=== PATIENT | female | born 2000 | race Caucasian/White ===

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

== ENCOUNTER → 2019-02-24 | Outpatient (CLI) | payer OTHER, MEDICAID, SELFPAY ==
[2019-02-24 09:40] VITALS: BMI 33.7
== END | disposition home or self-care (01) ==
LOC: LABSPEC 14:38
PROVIDERS: Family Provider Pediatrics; PCP Pediatrics; Referring Provider Obstetrics & Gynecology; Visit Provider Obstetrics & Gynecology
DX: Z34.93 Encounter for supervision of normal pregnancy, unspecified, third trimester (principal)
CPT/HCPCS: 87081

== ENCOUNTER → 2019-02-25 | Outpatient (CLI) | payer OTHER, MEDICAID, SELFPAY ==
[2019-02-25 14:48] VITALS: BMI 33.7
[2019-02-25 15:16] LABS: ROM Internal Control Test YES-OK TO RESULT pt. (Internal QC); ROM Patient Test Negative (Negative)
== END | disposition home or self-care (01) ==
LOC: LABSPEC 14:52
PROVIDERS: Family Provider Pediatrics; PCP Pediatrics; Visit Provider Nurse Practitioner Women's Health
DX: N89.8 Other specified noninflammatory disorders of vagina (principal)
CPT/HCPCS: 84112

== ENCOUNTER 2019-03-13 11:00 | Outpatient (CLI) | payer OTHER, MEDICAID, SELFPAY ==
[2019-03-12 13:48] VITALS: BMI 33.7
[2019-03-13 11:25] VITALS: BMI 32.8
--- NOTE | 2019-03-18 02:55 | OB.TRI.PN ---
Progress Notes Date of Service: 03/13/19 Progress Note: fht 130 moderate variability reactive no decelerations category I tracing [place]: regular no cervilca change s/p false labor reactive nst dc home labor precautions
== END 2019-03-13 13:40 | disposition home or self-care (01) ==
LOC: WPOUT 11:22 → WP 11:23
PROVIDERS: Referring Provider Obstetrics & Gynecology; Visit Provider Obstetrics & Gynecology
DX: O47.9 False labor, unspecified (principal); Z3A.00 Weeks of gestation of pregnancy not specified
CPT/HCPCS: 59025; 59050; 99218; G0378

== ENCOUNTER 2019-03-17 02:20 | Outpatient (CLI) | payer OTHER, MEDICAID, SELFPAY ==
[2019-03-17 03:18] VITALS: BMI 33.5
[2019-03-17] MEDS: Acetaminophen 500 MG Tablet 1000 MG PO (03:34)
--- NOTE | 2019-03-17 07:06 | OB.TRI.PN ---
Progress Notes Date of Service: 03/17/19 Progress Note: false labor no significant cervical change fht 130 moderate variability reactive no decelerations category I tracing [place]: regular a/p false labor reactive nst dc home labor preacutions
== END 2019-03-17 06:40 | disposition home or self-care (01) ==
LOC: WPOUT 03:08 → WP 03-18 07:18
PROVIDERS: Visit Provider Obstetrics & Gynecology
DX: O47.9 False labor, unspecified (principal); Z3A.00 Weeks of gestation of pregnancy not specified
CPT/HCPCS: 59025; 59050; 99218; G0378

== ENCOUNTER 2019-03-25 20:18 | Inpatient (IN) | payer OTHER, MEDICAID, SELFPAY ==
[2019-03-12 13:48] VITALS: BMI 33.7
[2019-03-23 14:07] VITALS: BMI 33.5
[2019-03-25 19:01] LABS: ROM Internal Control Test YES-OK TO RESULT pt. (Internal QC); ROM Patient Test Negative (Negative)
[2019-03-25 19:09] VITALS: BMI 33.5
--- NOTE | 2019-03-25 19:16 | OB.TRI.PN ---
Progress Notes Date of Service: 03/25/19 Progress Note: patient presents complaining of questionable loss of fluid earlier today. She has not had anything since. Patient with good movement and irregular contractions. She denies any significant vaginal bleeding and admits no complications in the heart tones 130 moderate variability reactive 120-second long variable 10 seconds below the baseline overall reassuring grossly normal RAFITA and gross and fine movements seen on ultrasound at bedside. [place]: Irregular Assessment and plan 18-year-old false labor reactive NST reassuring fluid and movement seen on ultrasound. DC home labor precautions negative ROM plus Laboratory Studies: Laboratory Tests 03/25/19 Range/Units 18:25 Vag Amniotic Fld Detect Negative (Negative)
[2019-03-25 21:18] LABS: Absolute Lymphocyte Count 2.63 X10^3/ul (0.83-4.51); Absolute Neutrophil Count 11.1 X10^3/uL (2.0-7.7); Basophil# 0.03 X10^3/uL; Basophil% 0.2 % (0-1); Eosinophil# 0.16 X10^3/uL; Hematocrit 34.2 % (37-47); Hemoglobin 10.9 g/dl (12.0-15.0); Lymphocyte # 2.63 X10^3/ul (4.0); Lymphocyte % 17.2 % (19-41); Mean Corp Hgb Conc 31.9 g/gl (32-36); Mean Corpuscular Hgb 25.7 pg (27.0-32.0); Mean Corpuscular Volume 80.7 fL (81-99); Mean Platelet Vol. 8.8 fl (6.2-12.0); Monocyte# 1.29 X10^3/uL; Monocyte% 8.5 % (0-10); Neutrophil % 72.8 % (47-70); Platelet Count 417 K/mm3 (150-450); RBC Distribution Width CV 14.1 % (11.6-14.6); RBC Distribution Width SD 41.6 fl (35.1-43.9); Red Blood Count 4.24 M/mm3 (4.2-5.4); White Blood Count 15.3 K/mm3 (4.4-11.0)
[2019-03-25 21:19] LABS: POSITIVE COUNT NO; POSITIVE DIFFERENTIAL NO; POSITIVE MORPHOLOGY NO
[2019-03-25] MEDS: Lactated Ringers 1,000 ML 50 ML IV ×2 (21:40→22:45)
[2019-03-25] MEDS: Oxytocin 30 units/NS 500 ml 30 UNITS/500 ML IV.SOLN IV (22:04)
[2019-03-25] MEDS: fentaNYL-bupivacaine (epidural) 100 ML BAG EPIDURAL (23:24)
[2019-03-26] MEDS: Ondansetron 4 MG/2 ML Vial IV ×2 (02:22→09:41)
[2019-03-26] MEDS: Lactated Ringers 1,000 ML 50 ML IV ×2 (02:42→06:09)
[2019-03-26] MEDS: fentaNYL-bupivacaine (epidural) 100 ML BAG EPIDURAL (03:55)
--- NOTE | 2019-03-26 08:13 | PCM.HP.OB ---
- Problem List (1) tachycardia Status: Acute (2) Status: Acute Qualifiers: Comment: genetic, carrier, and ntd screening declined. anatomy us normal (3) Supervision of normal first Status: Acute Qualifiers: Comment: PRR SHANIQUA 03/23/19 girl Luisa Luis History Date of Admission: 03/26/19 Final SHANIQUA: 03/23/19 Gestational age: 40 Weeks and 3 Days History of this : This is a 18 year-old, at 40 weeks gestational age presents for possible labor and was found to have tachycardia and two variable decelerations so she is being induced for postdates and variables. she admits good fm. Allergies tree and shrub pollen Allergy (Mild, Verified 03/25/19 19:24) Other sneezing Home Medications: Home Medications vitamin#30 30 mg iron-10 mg iron-folic acid 1 mg-omg3 capsule 1 cap PO DAILY cap 08/15/18 Fexofenadine HCl [Letitia Allergy] 180 mg PO DAILY 11/16/18 Smoking Status: Never smoker Alcohol: None Number of Fetus(es): 1 Heart Tracin-170 moderate variability reactive no decelerations category II tracing [place]: regular q 2-5 History Past Pregnancies: Past Pregnancies Delivery Date Name GA/Weeks Outcome Route Weight Gender Labor Length Anesthesia Delivery Location Provider FOB Labs: Mom's Labs & Results 03/25/19 03/25/19 03/25/19 18:25 21:00 21:00 WBC 15.3 H RBC 4.24 Hgb 10.9 L Hct 34.2 L MCV 80.7 L MCH 25.7 L MCHC 31.9 L RDW 14.1 RDW Differential 41.6 Plt Count 417 MPV 8.8 Immature Gran % (Auto) 0.300 Neut % (Auto) 72.8 H Lymph % (Auto) 17.2 L [place] % (Auto) 8.5 Eos % (Auto) 1.0 Baso % (Auto) 0.2 Absolute Neuts (auto) 11.1 H Absolute Lymphs (auto) 2.63 Total Counted Not Reportable Vag Amniotic Fld Detect Negative Blood Type O POSITIVE Antibody Screen NEGATIVE Course Did the patient receive Yes care? Labs Blood Type: O RH: POSITIVE RPR/VDRL/Syphilis Nonreactive Rubella status Immune HbSAg Negative Date Done: 09/15/18 Chlamydia Negative Gonorrhea Negative HIV/AIDS Non-Reactive Group B Strep: Negative Current Obstetrical History Gestational Diabetes No Incompetent Cervix No Infertility No IUGR No Macrosomia No Hypertension/Pre-eclampsia No Placenta Previa/Abruption No PTL/PROM No Uterine anomaly No Oligohydramnios No Polyhydramnios No Multiple gestation No Past Medical History Asthma No Diabetes No Hypertension No Heart disease No Mitral valve prolapse No: murmur when she was born Neurologic/Seizure disorder/ No Migraines Kidney disease No Liver disease No Varicosities No Clotting disorders/Hx of DVT No Thyroid Dysfunction No Other medical diseases No Psychiatric disorders No Major trauma No Abnormal PAP smear No Sleep apnea No Mammogram in the last 2 years No Social History Marital Status: Alleged father [place] Hx Smoking No Smoking Status Never smoker How long have you used n/a substances (years)? What date/time did you last n/a use any of the above? Have you had any previous n/a inpatient or outpatient treatment Expected Infant Delivery Method: Spontaneous Vaginal Review of Systems Constitutional: Denies: Fever, Malaise Eyes: Denies: Blurred vision, Vision Change HEENT: Denies: Head Aches, Visual Changes Cardiovascular: Denies: Chest Pain, Palpitations Respiratory: Denies: Cough, Shortness of Breath, Wheezing Gastrointestinal: Denies: Abdominal Pain, Diarrhea, Nausea, Vomiting Genitourinary: Denies: Dysuria, Hematuria Musculoskeletal: Denies: Joint Pain, Muscle pain Skin: Denies: Lesions, Rash Neurological: Denies: Blurred vision, Focal weakness, Headaches Psychiatric: Denies: Anxiety, Depression Endocrine: Denies: Heat/ Cold Intolerance Hematologic/ Lymphatic: Denies: Easy Bruising, Easy Bleeding Physical Exam General: Alert, Cooperative, No apparent distress HEENT: Atraumatic, Normocephalic. Negative for: Thyromegaly, Lymphadenopathy Cardiovascular: Regular rate Lungs: Normal air movement Abdomen: Soft, Non Tender, Gravid Neurological: Deep Tendon Reflexes 2+/4 and Symmetrical, Neuro grossly intact. Negative for: Clonus TAX COLLECTION COORDINATOR: Normal external genitalia. Negative for: Vulvar lesions Estimated gestational size: Appropriate for gestational size Presentation: Cephalic Cervix Dilation (cm): 4 Station: -1 Effacement (%): 80 Assessment/Plan All Active Problems (Last Reviewed 03/23/19 @ 13:47 by Fany Morris) tachycardia (Acute) (Acute) Supervision of normal first (Acute) Chest pain (Resolved) Threatened labor (Resolved) This is a 18 year-old, , at 40 weeks gestational age presents IOL tachycardia, postdates, variable decel. Patient presents IOL, plan management for , pitocin/AROM clear fluid. Pain management: Plans epidural. GBS negative. Management of any complications: None I have reviewed the [facility] and made any clinically relevant updates.
[2019-03-26] MEDS: Oxytocin 30 units/NS 500 ml 30 UNITS/500 ML IV.SOLN 334 UNITS IV (11:35)
[2019-03-26] MEDS: Methylergonovine 0.2 MG/ML Ampul IM (11:39)
--- NOTE | 2019-03-26 12:04 | PCM.OPRPT ---
Problem List (1) tachycardia Status: Acute (2) Status: Acute Qualifiers: Comment: genetic, carrier, and ntd screening declined. anatomy us normal (3) Supervision of normal first Status: Acute Qualifiers: Comment: PRR SHANIQUA 03/23/19 girl Luisa Luis Vaginal Delivery Maternal Presentation: Medically Indicated Induction iol tachycardia Method of Induction: Pitocin Amniotic Membrane Rupture Type: Artificial Amniotic Fluid Description: Clear, Thick meconium - at delivery Final SHANIQUA: 03/23/19 Gestational age: 40 Weeks and 3 Days Date of Procedure: 03/26/19 Pre-Operative Diagnosis: iol tachycardia variables Post-Operative Diagnosis: same Surgery/ Procedure Performed: Spontaneous Vaginal Delivery Type of Anesthesia: Epidural Description of Procedure: Patient began pushing and delivered the head in the STEPHANIE presentation. The head was delivered atraumatically . The anterior and posterior shoulders delivered without complication followed by the rest of the and the was placed on the maternal abdomen. Delayed cord clamping was employed for approximately 60 seconds. Cord was clamped and cut and gentle traction was applied to the cord and the placenta delivered spontaneously immediately following it was noted to be intact with three-vessel cord. The perineum and vagina were inspected and noted to have a second-degree laceration coming up to the capsule of the anal sphincter but the muscle and most of the capsule are intact. And interrupted 3-0 Vicryl repeat was placed in the area to provide support and the rest of the repair was done in the usual fashion with 3-0 Vicryl Rapide some uterine atony was noted and therefore the patient was given Methergine and bimanual massage was performed.. EBL was 650 cc. Patient and tolerated delivery well. Presentation: STEPHANIE Placental Delivery Description: Spontaneous Placenta Disposition: [facility] Cord Vessel Description: 3 Vessels Cord Entanglement: None Estimated Blood Loss: 650 Infant A gender: Female Episiotomy Description: None Laceration: Perineal Extension/lac, 2nd degree Medications given after delivery: IV Pitocin, IM Methergin Complications: - - uterine atony
[2019-03-26] MEDS: Oxytocin 30 units/NS 500 ml 30 UNITS/500 ML IV.SOLN 167 UNITS IV (12:05)
[2019-03-26] MEDS: Ketorolac 10 MG Tablet PO (16:10)
[2019-03-26 16:29] VITALS: BP 105/72; PULSE 97; RESP 16; TEMP 36.5; O2SAT 99
[2019-03-26 21:00] VITALS: BP 113/77; PULSE 99; RESP 16; TEMP 36.6
[2019-03-26] MEDS: Docusate Sodium 100 MG Capsule PO (22:41)
[2019-03-27 00:40] VITALS: BP 122/52; PULSE 99; RESP 18; TEMP 36.7
[2019-03-27] MEDS: Ketorolac 10 MG Tablet PO ×2 (00:40→10:58)
--- NOTE | 2019-03-27 01:42 | DCINST_ITS ---
Discharge Diet: No Restrictions Discharge Activity: Return to Normal Activity, May not drive while taking narcotic pain medications., May Shower May resume sexual activity in: 4-6 weeks Call your doctor if your incision/area has: Continuous Slow Oozing, Sudden Increased Bleeding, Increased Pain/ Swelling, Increased Redness, Foul Smelling Discharge Additional Instructions: If you experience any of the following, contact your healthcare provider. * Bleeding that soaks a pad every hour for 2 hours * Fever 100.4 or higher * Unrelieved incision or abdominal pain * Swelling, redness, discharge or bleeding from your incision or episiotomy site * Your incision begins to separate * Problems urinating (including inability to urinate or burning while urinating). * Visual changes * Severe headache * Flu-like symptoms * Pain or redness in one of both of your breasts * Pain, warmth, tenderness or swelling in your legs, especially the calf area * Frequent nausea and vomiting * Symptoms of depression or anxiety If you experience any of the following, call 911 or go to the nearest Emergency Room. * Chest pain * Problems breathing * Seizure activity * Partial or complete paralysis of a body part, slurred speech, weakness or drooping of the face, or a sudden inability to walk or hold your balance Allergies/Adverse Reactions: Allergies tree and shrub pollen Allergy (Mild, Verified 03/25/19 19:24) Other sneezing Medications to take at Discharge vitamin#30 30 mg iron-10 mg iron-folic acid 1 mg-omg3 capsule 1 cap PO DAILY cap 08/15/18 Fexofenadine HCl [Letitia Allergy] 180 mg PO DAILY 11/16/18 Docusate Sodium [Colace] 100 mg PO BID #60 cap 03/27/19 Naproxen [Naprosyn] 250 - 500 mg PO Q8H PRN PRN #30 tab 03/27/19 The following prescriptions were given: Docusate Sodium [Colace] 100 mg PO BID #60 cap Transmission Status: Pending to [facility] Naproxen [Naprosyn] 250 - 500 mg PO Q8H PRN PRN #30 tab PRN Reason: MILD PAIN Transmission Status: Pending to [facility] Please Follow Up With: Kacie Cohen MD - [phone] When: Call to make an appointment with your doctor in 6 weeks. If you had elevated Blood pressure or 4th degree laceration you will need to be seen in 2 weeks. Primary Care Physician: Care Physician,No Primary [Primary Care Provider] - Test Results: Test results from this visit will be discussed in further detail at your follow- up appointment, if applicable.
[2019-03-27 04:00] VITALS: BP 117/60; PULSE 94; RESP 16
[2019-03-27 06:13] LABS: Hematocrit 27.1 % (37-47); Hemoglobin 8.6 g/dl (12.0-15.0); Mean Corp Hgb Conc 31.7 g/gl (32-36); Mean Corpuscular Hgb 25.8 pg (27.0-32.0); Mean Corpuscular Volume 81.4 fL (81-99); Mean Platelet Vol. 8.4 fl (6.2-12.0); Platelet Count 351 K/mm3 (150-450); RBC Distribution Width CV 14.3 % (11.6-14.6); RBC Distribution Width SD 42.7 fl (35.1-43.9); Red Blood Count 3.33 M/mm3 (4.2-5.4)
[2019-03-27 06:14] LABS: Scan Indicated on CBC? Y/N NO
--- NOTE | 2019-03-27 08:32 | PCM.PN.OB ---
Patient Problems: Active and Suspected Problems (Last Reviewed 03/23/19 @ 13:47 by Fany Morris) tachycardia (Acute) Subjective: doing well no complaints pain controlled no CP SOB N V ambulating well tolerating po lochia moderate, going well - Physical Exam General: Alert, Oriented x3 Abdomen: Soft, Non Tender, Non-Distended, - - FF below U Vital Signs Temp Pulse Resp BP Pulse Ox 98.0 F 94 16 117/60 99 03/27/19 00:40 03/27/19 04:00 03/27/19 04:00 03/27/19 04:00 03/26/19 16:29 Oxygen Delivery Method Room Air Weight: 189 lb Body Mass Index (BMI) 33.5 Intake and Output for Last 24 Hours 03/25/19 03/26/19 03/27/19 23:59 23:59 23:59 Intake Total 3210 / 3210 Output Total 1500 / 1500 Balance 1710 / 1710 Laboratory Tests Past 24 Hrs 03/27/19 06:00 WBC 20.0 H RBC 3.33 L Hgb 8.6 L Hct 27.1 L MCV 81.4 MCH 25.8 L MCHC 31.7 L RDW 14.3 RDW Differential 42.7 Plt Count 351 MPV 8.4 Medical Necessity - Tobacco Use Smoking Status: Never smoker Assessment/Plan All Active Problems (Last Reviewed 03/23/19 @ 13:47 by Fany Morris) tachycardia (Acute) (Acute) Supervision of normal first (Acute) Chest pain (Resolved) Threatened labor (Resolved) s/p PPD # 1 1. routine post delivery care 2. breast feeding- support given 3. rh positive 4. rubella immune
[2019-03-27 08:45] VITALS: BP 117/59; PULSE 89; RESP 20; TEMP 37.1; O2SAT 97
[2019-03-27] MEDS: Docusate Sodium 100 MG Capsule PO ×2 (10:58→22:32)
[2019-03-27 14:30] VITALS: BP 112/63; PULSE 86; TEMP 36.4; O2SAT 98
[2019-03-27 20:10] VITALS: BP 112/67; PULSE 94; RESP 18; TEMP 36.6
[2019-03-28 01:20] VITALS: BP 117/67; PULSE 68; RESP 16; TEMP 36.4
[2019-03-28] MEDS: oxyCODONE 5 MG Tablet PO (04:26)
[2019-03-28 07:56] VITALS: BP 116/62; PULSE 74; RESP 16; TEMP 36.2; O2SAT 98
--- NOTE | 2019-03-28 08:22 | PCM.PN.OB ---
Patient Problems: Active and Suspected Problems (Last Reviewed 03/23/19 @ 13:47 by Fany Morris) tachycardia (Acute) Subjective: doing well no complaints pain controlled no CP SOB N V ambulating well tolerating po lochia moderate, going well - Physical Exam General: Alert, Oriented x3 Abdomen: Soft, Non Tender, Non-Distended, - - FF below U Vital Signs Temp Pulse Resp BP Pulse Ox 97.2 F L 74 16 116/62 98 03/28/19 07:56 03/28/19 07:56 03/28/19 07:56 03/28/19 07:56 03/28/19 07:56 Oxygen Delivery Method Room Air Weight: 189 lb Body Mass Index (BMI) 33.5 Intake and Output for Last 24 Hours 03/26/19 03/27/19 03/28/19 23:59 23:59 23:59 Intake Total 3210 / 3210 Output Total 1500 / 1500 Balance 1710 / 1710 Medical Necessity - Tobacco Use Smoking Status: Never smoker Assessment/Plan All Active Problems (Last Reviewed 03/23/19 @ 13:47 by Fany Morris) tachycardia (Acute) (Acute) Supervision of normal first (Acute) Chest pain (Resolved) Threatened labor (Resolved) s/p PPD # 2 1. routine post delivery care 2. breast feeding- support given 3. rh positive 4. rubella immune 5.Enc stool softener 6. home today
--- NOTE | 2019-03-28 08:25 | DCINST_ITS ---
Discharge Diet: No Restrictions Discharge Activity: Return to Normal Activity, May not drive while taking narcotic pain medications., May Shower May resume sexual activity in: 4-6 weeks Call your doctor if your incision/area has: Continuous Slow Oozing, Sudden Increased Bleeding, Increased Pain/ Swelling, Increased Redness, Foul Smelling Discharge Additional Instructions: If you experience any of the following, contact your healthcare provider. * Bleeding that soaks a pad every hour for 2 hours * Fever 100.4 or higher * Unrelieved incision or abdominal pain * Swelling, redness, discharge or bleeding from your incision or episiotomy site * Your incision begins to separate * Problems urinating (including inability to urinate or burning while urinating). * Visual changes * Severe headache * Flu-like symptoms * Pain or redness in one of both of your breasts * Pain, warmth, tenderness or swelling in your legs, especially the calf area * Frequent nausea and vomiting * Symptoms of depression or anxiety If you experience any of the following, call 911 or go to the nearest Emergency Room. * Chest pain * Problems breathing * Seizure activity * Partial or complete paralysis of a body part, slurred speech, weakness or drooping of the face, or a sudden inability to walk or hold your balance Allergies/Adverse Reactions: Allergies tree and shrub pollen Allergy (Mild, Verified 03/25/19 19:24) Other sneezing Medications to take at Discharge vitamin#30 30 mg iron-10 mg iron-folic acid 1 mg-omg3 capsule 1 cap PO DAILY cap 08/15/18 Fexofenadine HCl [Letitia Allergy] 180 mg PO DAILY 11/16/18 Docusate Sodium [Colace] 100 mg PO BID #60 cap 03/27/19 Naproxen [Naprosyn] 250 - 500 mg PO Q8H PRN PRN #30 tab 03/27/19 The following prescriptions were given: Docusate Sodium [Colace] 100 mg PO BID #60 cap Transmission Status: Sent to [facility] Naproxen [Naprosyn] 250 - 500 mg PO Q8H PRN PRN #30 tab PRN Reason: MILD PAIN Transmission Status: Received by [facility] Primary Care Physician: Care Physician,No Primary [Primary Care Provider] - Test Results: Test results from this visit will be discussed in further detail at your follow- up appointment, if applicable.
--- NOTE | 2019-03-28 08:25 | PCM.DCVAG ---
Discharge Diet: No Restrictions Discharge Activity: Return to Normal Activity, May not drive while taking narcotic pain medications., May Shower May resume sexual activity in: 4-6 weeks Call your doctor if your incision/area has: Continuous Slow Oozing, Sudden Increased Bleeding, Increased Pain/ Swelling, Increased Redness, Foul Smelling Discharge Additional Instructions: If you experience any of the following, contact your healthcare provider. Bleeding that soaks a pad every hour for 2 hours Fever 100.4 or higher Unrelieved incision or abdominal pain Swelling, redness, discharge or bleeding from your incision or episiotomy site Your incision begins to separate Problems urinating (including inability to urinate or burning while urinating). Visual changes Severe headache Flu-like symptoms Pain or redness in one of both of your breasts Pain, warmth, tenderness or swelling in your legs, especially the calf area Frequent nausea and vomiting Symptoms of depression or anxiety If you experience any of the following, call 911 or go to the nearest Emergency Room. Chest pain Problems breathing Seizure activity Partial or complete paralysis of a body part, slurred speech, weakness or drooping of the face, or a sudden inability to walk or hold your balance Allergies/Adverse Reactions: Allergies tree and shrub pollen Allergy (Mild, Verified 03/25/19 19:24) Other sneezing Medications to take at Discharge vitamin#30 30 mg iron-10 mg iron-folic acid 1 mg-omg3 capsule 1 cap PO DAILY cap 08/15/18 Fexofenadine HCl [Letitia Allergy] 180 mg PO DAILY 11/16/18 Docusate Sodium [Colace] 100 mg PO BID #60 cap 03/27/19 Naproxen [Naprosyn] 250 - 500 mg PO Q8H PRN PRN #30 tab 03/27/19 The following prescriptions were given: Docusate Sodium [Colace] 100 mg PO BID #60 cap Transmission Status: Sent to [facility] Naproxen [Naprosyn] 250 - 500 mg PO Q8H PRN PRN #30 tab PRN Reason: MILD PAIN Transmission Status: Received by [facility] Primary Care Physician: Care Physician,No Primary [Primary Care Provider] - Test Results: Test results from this visit will be discussed in further detail at your follow-up appointment, if applicable.
[2019-03-28] MEDS: Docusate Sodium 100 MG Capsule PO (09:53)
[2019-03-28 10:13] VITALS: BP 110/53; PULSE 91; RESP 16; TEMP 36.4; O2SAT 98
[2019-03-28] MEDS: Acetaminophen 500 MG Tablet 1000 MG PO (10:21)
[2019-03-28 12:48] LABS: Hematocrit 30.5 % (37-47); Hemoglobin 9.4 g/dl (12.0-15.0); Mean Corp Hgb Conc 30.8 g/gl (32-36); Mean Corpuscular Volume 81.1 fL (81-99); Mean Platelet Vol. 8.9 fl (6.2-12.0); Platelet Count 464 K/mm3 (150-450); RBC Distribution Width CV 14.3 % (11.6-14.6); RBC Distribution Width SD 41.3 fl (35.1-43.9); Red Blood Count 3.76 M/mm3 (4.2-5.4); White Blood Count 15.1 K/mm3 (4.4-11.0)
[2019-03-28 12:49] LABS: Scan Indicated on CBC? Y/N NO
== END 2019-03-28 13:10 | disposition home or self-care (01) | DRG 560 ==
LOC: WPOUT 20:18
PROVIDERS: Admitting Provider Obstetrics & Gynecology; Referring Provider Obstetrics & Gynecology; Visit Provider Obstetrics & Gynecology
DX: O76 Abnormality in fetal heart rate and rhythm complicating labor and delivery (principal); Z3A.40 40 weeks gestation of pregnancy; Z37.0 Single live birth; O48.0 Post-term pregnancy; O77.0 Labor and delivery complicated by meconium in amniotic fluid; O70.1 Second degree perineal laceration during delivery; O62.2 Other uterine inertia
CPT/HCPCS: 59025; 59050; 76815; 84112; 85025; 85027; 86850; 86900; 99218; J7120; G0378; J2405

== ENCOUNTER → 2020-03-03 16:00 | Outpatient (CLI) | payer MEDICAID, SELFPAY ==
[2020-03-03 14:23] VITALS: BMI 33.5
[2020-03-03 16:53] LABS: Amphetamine Urine VISTA NEGATIVE (<1000 ng/mL); Barbiturate Urine VISTA NEGATIVE (< 200 ng/mL); Benzodiazepine Urine VISTA NEGATIVE (< 200 ng/mL); Cocaine Urine VISTA NEGATIVE (< 300 ng/mL); Ecstacy Urine VISTA NEGATIVE (< 500 ng/mL); Methadone Urine VISTA NEGATIVE (< 300 ng/mL); PCP Urine VISTA NEGATIVE (< 25 ng/mL); THC Urine VISTA NEGATIVE (< 50 ng/mL); Vista UDS pH Range 6
[2020-03-03 20:08] LABS: Chlamydia Trachomatis by PCR Negative (Negative); Neisserai gonorrhoeae by PCR Negative (Negative); Probe Check PASS; Sample Adequacy Control PASS; Specimen Processing Control PASS
== END ==
PROVIDERS: Referring Provider Obstetrics & Gynecology; Visit Provider Obstetrics & Gynecology
DX: Z34.90 Encounter for supervision of normal pregnancy, unspecified, unspecified trimester (principal)
CPT/HCPCS: 80307; 87086; 87088; 87491; 87591

== ENCOUNTER → 2020-04-01 13:39 | Outpatient (CLI) | payer MEDICAID, SELFPAY ==
[2020-04-01 13:03] VITALS: BMI 32.8
[2020-04-01 14:37] LABS: Absolute Lymphocyte Count 2.01 X10^3/uL (0.83-4.51); Absolute Neutrophil Count 8.2 X10^3/uL (2.0-7.7); Basophil# 0.03 X10^3/uL; Basophil% 0.3 % (0-1); Eosinophil# 0.12 X10^3/uL; Eosinophils% 1.1 % (0-5); Hematocrit 34.1 % (37-47); Hemoglobin 10.2 g/dL (12.0-15.0); Lymphocyte # 2.01 X10^3/ul (4.0); Lymphocyte % 18.3 % (19-41); Mean Corp Hgb Conc 29.9 g/dL (32-36); Mean Corpuscular Hgb 22.3 pg (27.0-32.0); Mean Corpuscular Volume 74.6 fL (81-99); Mean Platelet Vol. 9.3 fl (6.2-12.0); Monocyte# 0.62 X10^3/uL; Monocyte% 5.6 % (0-10); NRBC Flagged by Analyzer 0 % (0-5); Neutrophil # 8.19 X10^3/uL (2.7-7.7); Neutrophil % 74.4 % (47-70); Platelet Count 386 K/mm3 (150-450); RBC Distribution Width CV 16.3 % (11.6-14.6); RBC Distribution Width SD 43.1 fl (35.1-43.9); Red Blood Count 4.57 M/mm3 (4.2-5.4)
[2020-04-01 16:03] LABS: HIV - WCH Non-Reactive (Nonreactive); Hepatitis B Surface Antigen Non-Reactive (Nonreactive); Hepatitis C Antibody Non-Reactive (Nonreactive); Rubella IgG 46.7 IU/mL
[2020-04-07 02:24] LABS: Rapid Plasmin Reagin (RPR) NONREACTIVE (NONREACTIVE)
== END ==
PROVIDERS: Referring Provider Obstetrics & Gynecology; Visit Provider Obstetrics & Gynecology
DX: Z34.90 Encounter for supervision of normal pregnancy, unspecified, unspecified trimester (principal)
CPT/HCPCS: 36415; 85025; 86592; 86703; 86762; 86803; 86850; 86900; 86901; 87340

== ENCOUNTER → 2020-05-13 12:43 | Outpatient (CLI) | payer MEDICAID, SELFPAY ==
[2020-04-28 12:59] VITALS: BMI 32.8
--- NOTE | 2020-05-13 12:43 | US_ITS ---
STUDY: SECOND AND THIRD TRIMESTER OBSTETRICAL ULTRASOUND REASON FOR EXAM: Female, 19 years old anatomy LMP: 12/31/2019 TECHNIQUE: Transabdominal TECHNICAL QUALITY: Adequate. PRIOR ULTRASOUND: None. FINDINGS: There is a single intrauterine fetus. The fetus is in a transverse lie with the head on the maternal right side. There is demonstrated cardiac activity with a heart rate of 154 bpm. There is a normal amniotic fluid volume. The largest amniotic fluid pocket measures 3.4 cm x 2.9 cm. The amniotic fluid index (RAFITA) is within normal limits. The placenta is posterior in location and is not low lying. There are Grade 1 placental changes. The cervix measures 4.7 cm in length. The bilateral adnexal regions are normal. BIOMETRY: BPD: 4.2 cm: 18 weeks, 3 days HC: 16.1 cm: 18 weeks, 6 days AC: 13.6 cm: 19 weeks, 0 days FL: 2.9 cm: 18 weeks, 5 days CI: 25% FL/BPD: 69% FL/HC: FL/AC: 21% HC/AC: 1.18 age by current US: 18 weeks, 6 days. SHANIQUA by current US: 10/08/2019. Estimated weight: 263 grams, +/- 39 grams, 25 %. Age by LMP: 19 weeks, 1 days. SHANIQUA by LMP: 10/06/2019. ANATOMY: Gender: Male Cranium: Normal lateral ventricles. Normal choroid plexus. Normal cerebellum. Normal cisterna magna. Normal face, nose and lips. Chest: Normal 4-chamber heart. Abdomen/Pelvis: Normal diaphragm. Normal stomach. Normal abdominal wall. Normal cord insertion. Normal 3 vessel cord. Normal kidneys. Normal bladder. Spine: Normal cervical spine. Normal thoracic spine. Normal lumbar spine. Normal sacrum. Extremities: Normal bilateral upper extremities. Normal bilateral lower extremities. US/OB Anatomy Scan IMPRESSION: Single live uterine gestation with a mean gestational age of 18 weeks and 6 days. Electronically Signed: Julian Henson, at 15:25 EDT , Service support ,
== END ==
PROVIDERS: Referring Provider Obstetrics & Gynecology; Visit Provider Obstetrics & Gynecology
DX: Z34.90 Encounter for supervision of normal pregnancy, unspecified, unspecified trimester (principal)
CPT/HCPCS: 76805

== ENCOUNTER → 2020-05-27 14:28 | Outpatient (CLI) | payer MEDICAID, SELFPAY ==
[2020-05-27 14:07] VITALS: BMI 32.8
[2020-05-27 15:03] LABS: Absolute Lymphocyte Count 1.96 X10^3/uL (0.83-4.51); Absolute Neutrophil Count 9.6 X10^3/uL (2.0-7.7); Basophil# 0.05 X10^3/uL; Basophil% 0.4 % (0-1); Eosinophil# 0.14 X10^3/uL; Eosinophils% 1.1 % (0-5); Hematocrit 34.7 % (37-47); Hemoglobin 10.3 g/dL (12.0-15.0); Lymphocyte # 1.96 X10^3/ul (4.0); Lymphocyte % 15.5 % (19-41); Mean Corp Hgb Conc 29.7 g/dL (32-36); Mean Corpuscular Hgb 22.5 pg (27.0-32.0); Mean Corpuscular Volume 75.9 fL (81-99); Mean Platelet Vol. 8.9 fl (6.2-12.0); Monocyte% 6.3 % (0-10); NRBC Flagged by Analyzer 0 % (0-5); Neutrophil # 9.64 X10^3/uL (2.7-7.7); Neutrophil % 76.3 % (47-70); Platelet Count 352 K/mm3 (150-450); RBC Distribution Width CV 17.9 % (11.6-14.6); RBC Distribution Width SD 49.3 fl (35.1-43.9); Red Blood Count 4.57 M/mm3 (4.2-5.4); White Blood Count 12.6 K/mm3 (4.4-11.0)
== END ==
PROVIDERS: Referring Provider Obstetrics & Gynecology; Visit Provider Obstetrics & Gynecology
DX: D50.9 Iron deficiency anemia, unspecified (principal)
CPT/HCPCS: 36415; 85025

== ENCOUNTER → 2020-07-29 12:41 | Outpatient (CLI) | payer MEDICAID, SELFPAY ==
[2020-06-24 14:12] VITALS: BMI 32.8
[2020-07-15 13:18] VITALS: BMI 35.2
[2020-07-29 14:27] LABS: Absolute Lymphocyte Count 1.85 X10^3/uL (0.83-4.51); Absolute Neutrophil Count 9.5 X10^3/uL (2.0-7.7); Basophil# 0.04 X10^3/uL; Basophil% 0.3 % (0-1); Eosinophil# 0.22 X10^3/uL; Eosinophils% 1.8 % (0-5); Hematocrit 31.6 % (37-47); Hemoglobin 9.2 g/dL (12.0-15.0); Lymphocyte # 1.85 X10^3/ul (4.0); Mean Corp Hgb Conc 29.1 g/dL (32-36); Mean Corpuscular Hgb 21.8 pg (27.0-32.0); Mean Corpuscular Volume 74.9 fL (81-99); Monocyte# 0.72 X10^3/uL; Monocyte% 5.8 % (0-10); NRBC Flagged by Analyzer 0 % (0-5); Neutrophil # 9.46 X10^3/uL (2.7-7.7); Neutrophil % 76.5 % (47-70); Platelet Count 345 K/mm3 (150-450); RBC Distribution Width CV 15.6 % (11.6-14.6); RBC Distribution Width SD 42.3 fl (35.1-43.9); Red Blood Count 4.22 M/mm3 (4.2-5.4); White Blood Count 12.4 K/mm3 (4.4-11.0)
[2020-07-29 14:53] LABS: Glucose Challenge Gest 1H 50g 83 mg/dL (70-140)
== END ==
PROVIDERS: Referring Provider Obstetrics & Gynecology; Visit Provider Obstetrics & Gynecology
DX: Z34.90 Encounter for supervision of normal pregnancy, unspecified, unspecified trimester (principal)
CPT/HCPCS: 36415; 82950; 85025

== ENCOUNTER → 2020-08-05 13:38 | Outpatient (CLI) | payer MEDICAID, SELFPAY ==
[2020-07-29 13:22] VITALS: BMI 35.2
[2020-08-05 14:06] VITALS: BP 120/63; PULSE 90; RESP 16; TEMP 36.3; O2SAT 99; BMI 35.0
[2020-08-05] MEDS: 0.9% NaCl Peripheral Flush Adult/Peds IV (14:16)
[2020-08-05] MEDS: 0.9% NaCl IVPB Med Flush (250 mL) 15 ML IV (14:16)
== END ==
PROVIDERS: Referring Provider Obstetrics & Gynecology; Visit Provider Obstetrics & Gynecology
DX: D50.9 Iron deficiency anemia, unspecified (principal)
CPT/HCPCS: 96365; 96366; J1756; J7050; A4216

== ENCOUNTER → 2020-08-15 14:19 | Outpatient (CLI) | payer MEDICAID, SELFPAY ==
[2020-07-29 13:22] VITALS: BMI 35.2
[2020-08-08 13:06] VITALS: BMI 39.3
[2020-08-15] MEDS: 0.9% NaCl IVPB Med Flush (250 mL) 15 ML IV (14:40)
[2020-08-15 14:42] VITALS: BP 129/68; PULSE 105; RESP 16; TEMP 36.4; O2SAT 97; BMI 35.4
[2020-08-15] MEDS: 0.9% NaCl Peripheral Flush Adult/Peds IV (14:44)
[2020-08-15 16:40] VITALS: BP 123/61; PULSE 87; RESP 16; TEMP 36.6; O2SAT 97
== END ==
PROVIDERS: Referring Provider Obstetrics & Gynecology; Visit Provider Obstetrics & Gynecology
DX: D50.9 Iron deficiency anemia, unspecified (principal)
CPT/HCPCS: 96365; 96366; J1756; J7050; A4216

== ENCOUNTER → 2020-08-22 14:25 | Outpatient (CLI) | payer MEDICAID, SELFPAY ==
[2020-07-29 13:22] VITALS: BMI 35.2
[2020-08-15 14:42] VITALS: BMI 35.4
[2020-08-22 14:30] VITALS: BP 125/55; PULSE 75; RESP 16; TEMP 36.6; O2SAT 98; BMI 35.4
[2020-08-22] MEDS: 0.9% NaCl IVPB Med Flush (250 mL) 15 ML IV (14:40)
[2020-08-22] MEDS: 0.9% NaCl Peripheral Flush Adult/Peds IV (14:40)
[2020-08-22 16:49] VITALS: BP 130/66; PULSE 87; RESP 16; TEMP 36.4; O2SAT 100
== END ==
PROVIDERS: Referring Provider Obstetrics & Gynecology; Visit Provider Obstetrics & Gynecology
DX: D50.9 Iron deficiency anemia, unspecified (principal)
CPT/HCPCS: 96365; 96366; J1756; J7050; A4216

== ENCOUNTER → 2020-09-05 12:07 | Outpatient (CLI) | payer MEDICAID, SELFPAY ==
[2020-09-05 11:47] VITALS: BMI 36.8
[2020-09-05 13:54] LABS: Absolute Lymphocyte Count 1.74 X10^3/uL (0.83-4.51); Absolute Neutrophil Count 8.9 X10^3/uL (2.0-7.7); Basophil# 0.04 X10^3/uL; Basophil% 0.3 % (0-1); Eosinophil# 0.22 X10^3/uL; Eosinophils% 1.8 % (0-5); Hemoglobin 11.6 g/dL (12.0-15.0); Lymphocyte # 1.74 X10^3/ul (4.0); Lymphocyte % 14.6 % (19-41); Mean Corp Hgb Conc 31.4 g/dL (32-36); Mean Corpuscular Hgb 26.5 pg (27.0-32.0); Mean Corpuscular Volume 84.5 fL (81-99); Mean Platelet Vol. 9.2 fl (6.2-12.0); Monocyte# 0.95 X10^3/uL; NRBC Flagged by Analyzer 0 % (0-5); Neutrophil % 74.5 % (47-70); POSITIVE MORPHOLOGY YES; Platelet Count 277 K/mm3 (150-450); RBC Distribution Width CV 25.9 % (11.6-14.6); RBC Distribution Width SD 73.4 fl (35.1-43.9); Red Blood Count 4.38 M/mm3 (4.2-5.4); White Blood Count 11.9 K/mm3 (4.4-11.0)
[2020-09-05 14:03] LABS: Differential Indicated SCAN CRITERIA MET
[2020-09-05 14:27] LABS: Differential Comment SCANNED
== END ==
PROVIDERS: Referring Provider Obstetrics & Gynecology; Visit Provider Obstetrics & Gynecology
DX: D50.9 Iron deficiency anemia, unspecified (principal)
CPT/HCPCS: 36415; 85025

== ENCOUNTER → 2020-09-12 16:41 | Outpatient (CLI) | payer MEDICAID, SELFPAY ==
[2020-09-12 15:55] VITALS: BMI 36.9
== END ==
PROVIDERS: Referring Provider Obstetrics & Gynecology; Visit Provider Obstetrics & Gynecology
DX: O09.90 Supervision of high risk pregnancy, unspecified, unspecified trimester (principal); D50.9 Iron deficiency anemia, unspecified; Z3A.00 Weeks of gestation of pregnancy not specified
CPT/HCPCS: 87081

== ENCOUNTER → 2020-09-22 14:24 | Outpatient (CLI) | payer MEDICAID, SELFPAY ==
[2020-09-22 13:52] VITALS: BMI 36.9
[2020-09-22 15:08] LABS: Absolute Lymphocyte Count 1.67 X10^3/uL (0.83-4.51); Absolute Neutrophil Count 8.3 X10^3/uL (2.0-7.7); Basophil# 0.04 X10^3/uL; Basophil% 0.4 % (0-1); Eosinophils% 0.9 % (0-5); Hematocrit 38.4 % (37-47); Hemoglobin 12.3 g/dL (12.0-15.0); Lymphocyte # 1.67 X10^3/ul (4.0); Lymphocyte % 15.2 % (19-41); Mean Corpuscular Hgb 26.5 pg (27.0-32.0); Mean Corpuscular Volume 82.6 fL (81-99); Mean Platelet Vol. 8.9 fl (6.2-12.0); Monocyte# 0.85 X10^3/uL; Monocyte% 7.7 % (0-10); NRBC Flagged by Analyzer 0 % (0-5); Neutrophil # 8.26 X10^3/uL (2.7-7.7); Neutrophil % 75.2 % (47-70); POSITIVE MORPHOLOGY YES; Platelet Count 319 K/mm3 (150-450); RBC Distribution Width CV 24.3 % (11.6-14.6); RBC Distribution Width SD 69.4 fl (35.1-43.9); Red Blood Count 4.65 M/mm3 (4.2-5.4)
[2020-09-22 15:10] LABS: Protein, Urine (Random) 57.3 mg/dL (<11.9); Protein:Creat Ratio 202 mg/g CRE (0-200)
[2020-09-22 15:16] LABS: ALB/GLOB Ratio 0.7 RATIO (0.9-2.4); AST(SGOT) 12 U/L (15-37); Alanine Aminotransfer ALT/SGPT 17 U/L (13-56); Albumin, Serum 2.9 g/dL (3.2-5.0); Alkaline Phosphatase 190 U/L (45-117); Anion Gap 7 (5-15); BUN 10 mg/dL (7-18); BUN/Creat Ratio 11.5 RATIO (10-20); Calcium,Total 8.7 mg/dL (8.5-10.1); Chloride 107 mmol/L (98-107); Creatinine, Serum 0.87 mg/dL (0.55-1.02); EST Glomerular Filtration Rate 87 mL/min (>60); Est Glom Filt Rate - Afr Amer 106 mL/min (>60); Glucose 86 mg/dL (74-106); Potassium 4.3 mmol/L (3.5-5.1); Protein, Total 6.9 g/dL (6.4-8.2); Sodium Level 139 mmol/L (136-145)
[2020-09-22 15:30] LABS: Differential Indicated SCAN CRITERIA MET
[2020-09-22 16:08] LABS: Platelet Estimate ADEQUATE (ADEQ)
[2020-09-22 16:09] LABS: Anisocytosis 1+; Microcytosis RARE; Ovalocyte RARE; Red Cell Morphology N CHROM NORMAL (NORM C&C)
== END ==
PROVIDERS: Referring Provider Obstetrics & Gynecology; Visit Provider Obstetrics & Gynecology
DX: O12.13 Gestational proteinuria, third trimester (principal); Z3A.00 Weeks of gestation of pregnancy not specified
CPT/HCPCS: 36415; 80053; 82570; 84156; 85025

== ENCOUNTER → 2020-09-27 17:11 | Outpatient (CLI) | payer MEDICAID, SELFPAY ==
[2020-09-26 15:59] VITALS: BMI 37.2
== END ==
PROVIDERS: Visit Provider Obstetrics & Gynecology
DX: U07.1 COVID-19 (principal)
CPT/HCPCS: 87635; C9803; U0003

== ENCOUNTER 2020-09-29 06:50 | Inpatient (IN) | payer MEDICAID, SELFPAY ==
[2020-09-26 15:59] VITALS: BMI 37.2
[2020-09-29] VITALS (37 sets, daily range): BP systolic 97–146; BP diastolic 50–77; PULSE 65–104; RESP 16; TEMP 36.1–37.2; O2SAT 97–100; BMI 36.6
[2020-09-29] MEDS: Lactated Ringers 1,000 ML 50 ML IV (08:10)
[2020-09-29 08:21] LABS: Absolute Lymphocyte Count 2.25 X10^3/uL (0.83-4.51); Absolute Neutrophil Count 9.3 X10^3/uL (2.0-7.7); Basophil# 0.03 X10^3/uL; Basophil% 0.2 % (0-1); Eosinophils% 0.8 % (0-5); Hematocrit 37.7 % (37-47); Hemoglobin 11.9 g/dL (12.0-15.0); Lymphocyte # 2.25 X10^3/ul (4.0); Lymphocyte % 17.6 % (19-41); Mean Corp Hgb Conc 31.6 g/dL (32-36); Mean Corpuscular Hgb 25.9 pg (27.0-32.0); Monocyte# 1.04 X10^3/uL; Monocyte% 8.1 % (0-10); NRBC Flagged by Analyzer 0 % (0-5); Neutrophil % 72.8 % (47-70); POSITIVE MORPHOLOGY YES; Platelet Count 324 K/mm3 (150-450); RBC Distribution Width CV 22.9 % (11.6-14.6); RBC Distribution Width SD 66.6 fl (35.1-43.9); White Blood Count 12.8 K/mm3 (4.4-11.0)
[2020-09-29 08:22] LABS: Differential Indicated SCAN CRITERIA MET
[2020-09-29] MEDS: Oxytocin 30 units/NS 500 ml 30 UNITS/500 ML IV.SOLN IV (08:29)
[2020-09-29] MEDS: Ondansetron 4 MG/2 ML Vial IV (08:30)
[2020-09-29] MEDS: Lactated Ringers 500 ML 999 ML IV (08:56)
[2020-09-29] MEDS: fentaNYL-bupivacaine (epidural) 100 ML BAG EPIDURAL ×2 (09:40→14:03)
--- NOTE | 2020-09-29 13:09 | HP.PCM_ITS ---
- Problem List (1) 37 weeks gestation of Status: Acute Comment: electronic test ordered 09/20/20 (2) Influenza vaccine administered Status: Acute Comment: given on 05/27/20 (3) Iron (Fe) deficiency anemia Status: Acute Comment: IV venofer, repeat cbc at 36 weekss (4) Obesity affecting Status: Acute Comment: missed 1 TM glucola, encouraged healthy weight gain. (5) Status: Acute Qualifiers: Comment: declined genetic, carrier, and ntd screening. Anatomy US normal (6) Supervision of high risk , antepartum Status: Acute Comment: PRR SHANIQUA 10/06/20 Larry boy VANESSA Migeul Luis (7) Transient hypertension of in third trimester Status: Acute Comment: bps at home elevated, nl labs. plan IOL 39 weeks History and Physical Date of Admission: 09/29/20 Intake Vital Signs 09/26/20 Height 5 ft 3 in 09/26/20 Weight: 210 lb 09/26/20 BP 132/76 H Intake Visit Reasons: 39WK OB Chief Complaint: est ob Circular Distributor Required: No Is patient in pain?: No Allergies tree and shrub pollen Allergy (Mild, Verified 09/26/20 15:59) Other Medications vitamin #56-iron 35 mg and 5 mg-folic acid 1 mg-dha capsule 1 cap PO DAILY 03/03/20 history Confirmed 09/26/20 famotidine 20 mg tablet 20 mg PO DAILY #30 tab 07/15/20 Rx Confirmed 09/26/20 blood pressure monitor See Rx Instructions .ROUTE .MEDSUPPLY #1 ea 09/23/20 Rx Confirmed 09/26/20 Last Menstral Period: 12/31/19 Zika: Zika virus screening: Negative PFSH PFSH Family History Mother Hypertension Father Cancer throat- smoker Grandfather Diabetes Myocardial infarction Grandmother Diabetes Aunt Diabetes Social History (Updated 09/27/20 @ 08:[address] Kacei Cohen MD) Smoking Status: Never smoker alcohol intake: never substance use type: does not use caffeine: Yes what type of physical activity do you participate in: none seatbelt use: always do you feel safe at home: Yes additional social history: Luis- works at [employer] Patient babysits Pregancy History 2 Elective abortions Hx Para 1 Spontaneous abortions Hx # Term Pregnancies Ectopic pregnancies Hx # Pregnancies Multiple births # of living children 1 Past Pregnancies Del. Date Name GA/Weeks Outcome Route Bth Weight Gen Labor Lgth Anesthesia Del Locatn Provider FOB 03/25/19 Myriam 40 live - full term NS VD Female epidural [facility] Delivery Date: 03/25/19 No complications HemantPenny HPI 39WK OB : Details: JENNIE HAGAN is a 19 year old G2, P1 at 39 weeks presents for induction of labor secondary to gestational hypertension. Patient has developed increasing mildly elevated blood pressures at home and had no proteinuria present. Patient denies any headaches or blurry vision OB Visit SHANIQUA Calculator Estimated Delivery Date Method Current WG Current Estimate 10/06/20 LMP (Certain) 38w 5d Expected Delivery Route/Plan Labor Preferences- labor support person: pain management options preferred: epidural cut cord/dad catch: yes : yes PP control planned: discussed possible routes of delivery and associated risks: special requests: Specific Issue/Plans flu vaccine: 05/27 tdap vaccine: given rhogam: na LARC form signed: declined movement and labor precautions reviewed. Problem list reviewed and updated with the most current plan of care details and appropriate orders placed. Relevant counseling for the gestational age provided. Continue routine care and follow up unless otherwise noted in visit notes/problem list details Initial Weight: 186 lb Date EGA Weight BP Urine Prot Glucose FHR FuHt Pres Dilation Effaced St Visit Note 04/01/20 13w 1d 185 lb (-16 oz) 130/76 Negative Negative 170 SM- no vb cramping doing well 04/28/20 17w 0d 187 lb (+16 oz) 120/86 160 SM- no vb cramping having some difficulty taking iron discussed chewables. 05/27/20 21w 1d 193 lb (+7 lb) 102/66 Negative Negative 150 SM- no vb no regular ctx good fm 06/24/20 25w 1d 194 lb (+8 lb) 108/64 Trace Negative 150 Sm- no vb lof good fm no regular ctx 07/15/20 28w 1d 199 lb (+13 lb) 112/70 Negative Negative 155 SM- no vb lof good fm no regular ctx. ordered pepcid. 07/29/20 30w 1d 199 lb 2 oz (+13 lb 2 oz) 124/60 Negative Negative 145 30 SM- no vb lof good fm nor egular ctx. 08/08/20 31w 4d 201 lb 4 oz (+15 lb 4 oz) 138/60 Negative Negative 145 32 SM- no vb lof good fm nor egualr ctx co upper back pain. 08/25/20 34w 0d 205 lb (+19 lb) 138/62 Negative Negative 140 34 Sm- no vb lof good fm nor egualr ctx 09/05/20 35w 4d 208 lb (+22 lb) 120/74 Negative Negative 155 36 Cephalic Sm- no vb lof good fm no regular ctx 09/12/20 36w 4d 208 lb 6 oz (+22 lb 6 oz) 130/74 Negative Negative 150 36 Cephalic 1 50 -3 GP - no LOF, VB, DFM, ctx . GBS done today. 09/22/20 38w 0d 208 lb 6 oz (+22 lb 6 oz) 130/80 1+ Negative 150 38 Cephalic GP - no LOF, VB, DFM, ctx. Declines SVE. 1+ proteinuria with normal BP - PreE labs ordered. 09/26/20 38w 4d 210 lb (+24 lb) 132/76 Negative Negative 140 39 4 60 -1 SM- no vb lof SM- no vb lof good fm no regular ctx transient elevated bps at home, nl bps here. discussed and plan IOL GHTN 39 weeks Diagnostics Diagnostics Diagnostics Blood Type O POSITIVE 04/01/20 Antibody Screen NEGATIVE 04/01/20 Glucose 1 Hr 50 gm 83 mg/dL (70-140) 07/29/20 HIV 1&2 Antibody Non-Reactive (Nonreactive) 04/01/20 Rubella IgG Antibody 46.7 IU/mL 04/01/20 Hgb 12.3 g/dL (12.0-15.0) 09/22/20 Hct 38.4 % (37-47) 09/22/20 RPR NONREACTIVE (NONREACTIVE) 04/01/20 Details: HIV: Urine Culture: Sequential Screen: NIPT Screen: ROS Const Reports system reviewed and no additional complaints, except as docu Card Reports system reviewed and no additional complaints, except as docu Resp Reports system reviewed and no additional complaints, except as docu GI Reports system reviewed and no additional complaints, except as docu, Reports nausea Reports system reviewed and no additional complaints, except as docu Musc Reports system reviewed and no additional complaints, except as docu Exam Const General: cooperative, healthy appearing, comfortable, anxious [facility] Head: normal to inspection Nose: external nose normal Face and sinus: normal facial exam Neck Neck: normal visual inspection, full ROM, no lymphadenopathy Thyroid: thyroid normal Chest Chest palpation & inspection: normal inspection of the chest Resp Effort & Inspection: normal respiratory effort GI Inspection: normal to inspection Palpation: soft, other (gravid uterus) Other: infant vertex and appropriate size for gestational age Other: Cervical Exam: Extrem General: pedal edema Results POC Urinalysis 2 Dip (Clinic) Office Urine Glucose Negative Last Edit by Penny Marcos on 09/26/20 16:0 3 Office Urine Protein Negative Last Edit by Penny Marcos on 09/26/20 16:0 3 Assessment & Plan Problems 1. Supervision of high risk , antepartum O09.90 PRR SHANIQUA 10/06/20 Larry boy PC Myriam Luis 2. Obesity affecting O99.210 missed 1 TM glucola, encouraged healthy weight gain. 3. Z34.90 declined genetic, carrier, and ntd screening. Anatomy US normal 4. Iron (Fe) deficiency anemia D50.9 IV venofer, repeat cbc at 36 weekss 5. Influenza vaccine administered Z23 given on 05/27/20 6. 37 weeks gestation of Z3A.37 electronic test ordered 09/20/20 7. Transient hypertension of in third trimester O13.3 bps at home elevated, nl labs. plan IOL 39 weeks Patient presents IOL, plan management for with pitocin/AROM. Pain management: Plans epidural. GBS negative. Management of any complications: Gestational hypertension, monitor blood pressures in labor and labs within normal limits. I have reviewed the [facility] and made any clinically relevant updates. Orders Orders: POC Urinalysis 2 Dip (Clinic) 09/26/20 Coding Level of Care Code Off vis,est,level 3 Diagnoses Supervision of high risk , antepartum O09.90 Obesity affecting O99.210 Z34.90 Iron (Fe) deficiency anemia D50.9 Influenza vaccine administered Z23 37 weeks gestation of Z3A.37 Transient hypertension of in third trimester O13.3
[2020-09-29] MEDS: Lactated Ringers 1,000 ML 200 ML IV (14:00)
[2020-09-29] MEDS: Oxytocin 30 units/NS 500 ml 30 UNITS/500 ML IV.SOLN 334 UNITS IV (16:05)
[2020-09-29] MEDS: Methylergonovine 0.2 MG/ML Ampul IM (16:05)
--- NOTE | 2020-09-29 16:21 | OP.PCM_ITS ---
Problem List (1) 37 weeks gestation of Status: Acute Comment: electronic test ordered 09/20/20 (2) Influenza vaccine administered Status: Acute Comment: given on 05/27/20 (3) Iron (Fe) deficiency anemia Status: Acute Comment: IV venofer, repeat cbc at 36 weekss (4) Obesity affecting Status: Acute Comment: missed 1 TM glucola, encouraged healthy weight gain. (5) Status: Acute Qualifiers: Comment: declined genetic, carrier, and ntd screening. Anatomy US normal (6) Supervision of high risk , antepartum Status: Acute Comment: PRR SHANIQUA 10/06/20 Larry boy VANESSA Miguel Luis (7) Transient hypertension of in third trimester Status: Acute Comment: bps at home elevated, nl labs. plan IOL 39 weeks Vaginal Delivery Maternal Presentation: Medically Indicated Induction iol GHTN Method of Induction: Pitocin Amniotic Membrane Rupture Type: Artificial Amniotic Fluid Description: Clear Final SHANIQUA: 10/06/20 Gestational age: 39 Weeks and 0 Days Date of Procedure: 09/29/20 Pre-Operative Diagnosis: ial Post-Operative Diagnosis: same plus mild shoulder dystocia and covid positive Surgery/ Procedure Performed: Spontaneous Vaginal Delivery Type of Anesthesia: None Description of Procedure: Patient began pushing and delivered the head in the [STEPHANIE] presentation. The head was delivered atraumatically and a tight nuchal cord was identified and reduced over the 's head. A mild shoulder dystocia was encountered and remedied after 45 seconds of Sandra suprapubic and a wood screw maneuver to deliver the left shoulder anteriorly. The anterior and posterior shoulders delivered without complication followed by the rest of the and the infant was placed on the maternal abdomen. Delayed cord clamping was employed for approximately 60 seconds. Cord was clamped and cut and gentle traction was applied to the cord and the placenta delivered spontaneously immediately following it was noted to be intact with three-vessel cord. The perineum and vagina were inspected and noted to have a second-degree perineal laceration. EBL was 400 cc, mild uterine atony was treated with Methergine because her most recent blood pressures have been within normal limits for the labor process. Patient and tolerated delivery well. After delivery her outpatient Covid testing PCR that had been done several days prior and had not resulted prior to delivery came back and was positive. Her rapid test had been negative earlier today. All precautions will be taken with the patient and her baby afterwards to monitor for infection symptoms. Patient has no known covert exposures and denies any symptoms for her or her within the last few months. Presentation: STEPHANIE Placental Delivery Description: Spontaneous Placenta Disposition: [facility] Cord Vessel Description: 3 Vessels Cord Entanglement: Around neck x 1, tight Estimated Blood Loss: 400 A gender: Male Episiotomy Description: None Laceration: Perineal Extension/lac, 2nd degree Medications given after delivery: IV Pitocin Complications: - - mild shoulder dystocia Multi Select Codes - Urinary/Genital Urinary/Genital CPT Codes: 63985 Vaginal Delivery+ Care([facility])
--- NOTE | 2020-09-29 16:54 | DCINST_ITS ---
Discharge Diet: No Restrictions Discharge Activity: Return to Normal Activity, May not drive while taking narcotic pain medications., May Shower May resume sexual activity in: 4-6 weeks Call your doctor if your incision/area has: Continuous Slow Oozing, Sudden Increased Bleeding, Increased Pain/ Swelling, Increased Redness, Foul Smelling Discharge Additional Instructions: If you experience any of the following, contact your healthcare provider. * Bleeding that soaks a pad every hour for 2 hours * Fever 100.4 or higher * Unrelieved incision or abdominal pain * Swelling, redness, discharge or bleeding from your incision or episiotomy site * Your incision begins to separate * Problems urinating (including inability to urinate or burning while urinating). * Visual changes * Severe headache * Flu-like symptoms * Pain or redness in one of both of your breasts * Pain, warmth, tenderness or swelling in your legs, especially the calf area * Frequent nausea and vomiting * Symptoms of depression or anxiety If you experience any of the following, call 911 or go to the nearest Emergency Room. * Chest pain * Problems breathing * Seizure activity * Partial or complete paralysis of a body part, slurred speech, weakness or drooping of the face, or a sudden inability to walk or hold your balance Allergies/Adverse Reactions: Allergies tree and shrub pollen Allergy (Mild, Verified 09/29/20 07:34) Other sneezing Medications to take at Discharge vitamin #56-iron 35 mg and 5 mg-folic acid 1 mg-dha capsule 1 cap PO DAILY 03/03/20 blood pressure monitor See Rx Instructions .ROUTE .MEDSUPPLY #1 ea 09/23/20 Famotidine 20 mg PO DAILY 09/29/20 Please Follow Up With: Kacie Cohen MD - [phone] When: Call to make an appointment with your doctor in 6 weeks. If you had elevated Blood pressure or 4th degree laceration you will need to be seen in 2 weeks. Primary Care Physician: Care Physician,No Primary [Primary Care Provider] - Test Results: Test results from this visit will be discussed in further detail at your follow- up appointment, if applicable.
[2020-09-29] MEDS: 0.9% Saline Lock 10 ML Syringe IV (18:41)
[2020-09-29] MEDS: Naproxen 250 MG Tablet 500 MG PO (18:43)
[2020-09-29] MEDS: Acetaminophen 500 MG Tablet 1000 MG PO (22:47)
[2020-09-30] VITALS (8 sets, daily range): BP systolic 118–134; BP diastolic 54–67; PULSE 72–83; RESP 15–16; TEMP 36.1–36.9
--- NOTE | 2020-09-30 03:34 | PN.OBGYN_ITS ---
Patient Problems: Active and Suspected Problems (Last Reviewed 09/26/20 @ 16:00 by Penny Marcos) Transient hypertension of in third trimester (Acute) bps at home elevated, nl labs. plan IOL 39 weeks 37 weeks gestation of (Acute) electronic test ordered 09/20/20 Influenza vaccine administered (Acute) given on 05/27/20 Iron (Fe) deficiency anemia (Acute) IV venofer, repeat cbc at 36 weekss (Acute) declined genetic, carrier, and ntd screening. Anatomy US normal Obesity affecting (Acute) missed 1 TM glucola, encouraged healthy weight gain. Supervision of high risk , antepartum (Acute) PRR SHANIQUA 10/06/20 Larry boy PC Myriam Luis Subjective: Patient doing well without complaints. Tolerating PO. Ambulating and voiding without difficulty. breast feeding well. Denies chest pain, shortness of breath, calf pain/swelling, fevers, chills, lightheadedness. denies any covid symptoms - Physical Exam Vitals/I&O's: Vital Signs Temp Pulse Resp BP Pulse Ox 96.9 F L 75 16 134/67 H 98 09/30/20 03:24 09/30/20 03:24 09/30/20 03:24 09/30/20 03:24 09/29/20 19:54 Oxygen Delivery Method Room Air Weight: 206 lb 9.17 oz Body Mass Index (BMI) 36.6 Intake and Output for Last 24 Hours 09/28/20 09/29/20 09/30/20 23:59 23:59 23:59 Intake Total 2753.70 / 2753.70 Output Total 800 / 800 Balance 1953.70 / 1953.70 General: Alert, Oriented x3 Microbiology Past 72 Hours 09/29/20 08:30 Mucosa - Nose SARS-CoV-2 Antigen (Rapid) - Final Laboratory Results 09/29/20 08:10: WBC 12.8 H, RBC 4.60, Hgb 11.9 L, Hct 37.7, MCV 82.0, MCH 25.9 L , MCHC 31.6 L, RDW Std Deviation 66.6 H, RDW Coeff of Ed 22.9 H, Plt Count 324, MPV 9.0, Immature Gran % (Auto) 0.500, Neut % (Auto) 72.8 H, Lymph % (Auto) 17.6 L, [place] % (Auto) 8.1, Eos % (Auto) 0.8, Baso % (Auto) 0.2, Absolute Neuts (auto) 9.3 H, Absolute Lymphs (auto) 2.25, Nucleated RBC % 0, Differential Comment 09/29/20 08:10: Blood Type O POSITIVE, Antibody Screen NEGATIVE Current Medications Acetaminophen (Acetaminophen 500 Mg Tablet) 1,000 mg PO Q8H PRN PRN PRN Reason: Pain Score 1-3 Last Admin: 09/29/20 22:47 Dose: 1,000 mg Documented by: Bisacodyl (Bisacodyl 10 Mg Suppository) 10 mg RECTAL UD PRN PRN Reason: If no BM Dibucaine (Dibucaine 30 Gm Tube) 1 applic TOPICAL TID PRN PRN; Protocol PRN Reason: Discomfort Enoxaparin Sodium (Enoxaparin 40 Mg/0.4 Ml Syringe) 40 mg SC DAILY@0600 HENRRY Hydrocortisone (Hydrocortisone 2.5% Crm) 1 applic TOPICAL TID PRN PRN; Protocol PRN Reason: Discomfort Methylergonovine Maleate (Methylergonovine 0.2 Mg/Ml Ampul) 0.2 mg IM X1 PRN PRN Reason: Excess bleeding/uterine atony Last Admin: 09/29/20 16:05 Dose: 0.2 mg Documented by: Naproxen (Naproxen 250 Mg Tablet) 500 mg PO Q8H PRN PRN PRN Reason: Pain Score 1-3 Last Admin: 09/29/20 18:43 Dose: 500 mg Documented by: Ondansetron HCl (Ondansetron 4 Mg/2 Ml Vial) 4 mg IV Q4H PRN PRN PRN Reason: Nausea Oxycodone HCl (Oxycodone 5 Mg Tablet) 5 - 10 mg PO Q4H PRN PRN PRN Reason: Pain Score 4-10 Senna/Docusate Sodium (Senna/Docusate Sodium 1 Tablet) 1 - 2 tablet PO DAILY PRN PRN PRN Reason: Constipation Simethicone (Simethicone 80 Mg Tablet) 80 mg PO PCHS PRN PRN Reason: Indigestion/Stomach pain Sodium Chloride (0.9% Saline Lock 10 Ml Syringe) 5 - 15 ml IV UD PRN PRN Reason: SALINE FLUSH Last Admin: 09/29/20 18:41 Dose: 10 ml Documented by: Medical Necessity - Tobacco Use Smoking Status: Never smoker Assessment/Plan All Active Problems (Last Reviewed 09/26/20 @ 16:00 by Penny Marcos) Lab test positive for detection of COVID-19 virus (Acute) Transient hypertension of in third trimester (Acute) 37 weeks gestation of (Acute) Influenza vaccine administered (Acute) Iron (Fe) deficiency anemia (Acute) (Acute) Obesity affecting (Acute) Supervision of high risk , antepartum (Acute) Chest pain (Resolved) Threatened labor (Resolved) s/p PPD # 1 1. routine post delivery care 2. breast feeding- support given 3. rh positive 4. rubella immune covid positive- asymptomatic, continue all precautions, dc home today GHTN- nl to mildly elevated bp
[2020-09-30] MEDS: Enoxaparin 40 MG/0.4 ML Syringe SC (05:35)
[2020-09-30] MEDS: Naproxen 250 MG Tablet 500 MG PO (05:37)
== END 2020-09-30 16:30 | disposition home or self-care (01) | DRG 560 ==
PROVIDERS: Admitting Provider Obstetrics & Gynecology; Referring Provider Obstetrics & Gynecology; Visit Provider Obstetrics & Gynecology
DX: O13.4 Gestational [pregnancy-induced] hypertension without significant proteinuria, complicating childbirth (principal); O98.52 Other viral diseases complicating childbirth; U07.1 COVID-19; O99.02 Anemia complicating childbirth; O99.214 Obesity complicating childbirth; E66.9 Obesity, unspecified; O69.1XX0 Labor and delivery complicated by cord around neck, with compression, not applicable or unspecified; O66.0 Obstructed labor due to shoulder dystocia; O70.1 Second degree perineal laceration during delivery; O62.2 Other uterine inertia; Z3A.39 39 weeks gestation of pregnancy; Z37.0 Single live birth
CPT/HCPCS: 59025; 59050; 85025; 86850; 86900; 86901; 87426; 87635; 99218; C9803; J7120; A4216; G0378; J2405; U0003

== ENCOUNTER → 2021-06-12 12:16 | Outpatient (CLI) | payer MEDICAID, SELFPAY ==
[2021-06-12 12:51] LABS: Absolute Lymphocyte Count 2.33 X10^3/uL (0.83-4.51); Absolute Neutrophil Count 6.3 X10^3/uL (2.0-7.7); Basophil# 0.05 X10^3/uL; Basophil% 0.5 % (0-1); Eosinophil# 0.18 X10^3/uL; Eosinophils% 1.9 % (0-5); Hematocrit 37.8 % (37-47); Hemoglobin 11.9 g/dL (12.0-15.0); Lymphocyte # 2.33 X10^3/ul (0.83-4.51); Lymphocyte % 24.4 % (19-41); Mean Corp Hgb Conc 31.5 g/dL (32-36); Mean Corpuscular Hgb 24.9 pg (27.0-32.0); Mean Corpuscular Volume 79.2 fL (81-99); Mean Platelet Vol. 8.7 fl (6.2-12.0); Monocyte# 0.62 X10^3/uL; Monocyte% 6.5 % (0-10); NRBC Flagged by Analyzer 0 % (0-5); Neutrophil # 6.33 X10^3/uL (2.7-7.7); Neutrophil % 66.4 % (47-70); Platelet Count 375 K/mm3 (150-450); RBC Distribution Width CV 15.1 % (11.6-14.6); RBC Distribution Width SD 43.6 fl (35.1-43.9); Red Blood Count 4.77 M/mm3 (4.2-5.4); White Blood Count 9.5 K/mm3 (4.4-11.0)
[2021-06-12 13:51] LABS: hCG Titer Quant., Serum 15440 mIU/mL (1-3)
== END ==
PROVIDERS: Referring Provider Obstetrics & Gynecology; Visit Provider Obstetrics & Gynecology
DX: O02.1 Missed abortion (principal)
CPT/HCPCS: 36415; 84702; 85025

== ENCOUNTER → 2021-07-10 | Outpatient (CLI) | payer MEDICAID, SELFPAY ==
[2021-07-10 13:08] LABS: NATERA MAILED SPECIMEN
[2021-07-10 13:46] LABS: Absolute Lymphocyte Count 1.87 X10^3/uL (0.83-4.51); Absolute Neutrophil Count 7.8 X10^3/uL (2.0-7.7); Basophil# 0.04 X10^3/uL; Basophil% 0.4 % (0-1); Eosinophil# 0.08 X10^3/uL; Eosinophils% 0.8 % (0-5); Hematocrit 39.6 % (37-47); Hemoglobin 12.6 g/dL (12.0-15.0); Lymphocyte # 1.87 X10^3/ul (0.83-4.51); Lymphocyte % 18.1 % (19-41); Mean Corp Hgb Conc 31.8 g/dL (32-36); Mean Corpuscular Hgb 25.5 pg (27.0-32.0); Mean Platelet Vol. 9.2 fl (6.2-12.0); Monocyte# 0.48 X10^3/uL; Monocyte% 4.6 % (0-10); NRBC Flagged by Analyzer 0 % (0-5); Neutrophil # 7.83 X10^3/uL (2.7-7.7); Neutrophil % 75.8 % (47-70); Platelet Count 384 K/mm3 (150-450); RBC Distribution Width CV 15.1 % (11.6-14.6); RBC Distribution Width SD 43.8 fl (35.1-43.9); Red Blood Count 4.95 M/mm3 (4.2-5.4); White Blood Count 10.3 K/mm3 (4.4-11.0)
[2021-07-10 14:49] LABS: HIV - WCH Non-Reactive (Nonreactive); Hepatitis B Surface Antigen Non-Reactive (Nonreactive); Hepatitis C Antibody Non-Reactive (Nonreactive); Rubella IgG Reactive (Nonreactive); Syphilis Antibodies Non-reactive
[2021-07-13 08:09] LABS: Chlamydia By Nucleic Acid AMP Negative (Negative)
[2021-07-13 08:57] LABS: Gonococcus By Nucleic Acid AMP Negative (Negative)
== END | disposition home or self-care (01) ==
PROVIDERS: Referring Provider Obstetrics & Gynecology; Visit Provider Obstetrics & Gynecology
DX: Z34.81 Encounter for supervision of other normal pregnancy, first trimester (principal); Z31.430 Encounter of female for testing for genetic disease carrier status for procreative management
CPT/HCPCS: 36415; 85025; 86703; 86762; 86780; 86803; 86850; 86900; 86901; 87340; 87491; 87591

== ENCOUNTER → 2021-08-08 08:46 | Outpatient (CLI) | payer MEDICAID, SELFPAY ==
[2021-08-08 10:31] LABS: Glucose Challenge Gest 1H 50g 69 mg/dL (70-140)
[2021-08-08 11:09] LABS: Amphetamine Urine VISTA NEGATIVE (<1000 ng/mL); Barbiturate Urine VISTA NEGATIVE (< 200 ng/mL); Benzodiazepine Urine VISTA NEGATIVE (< 200 ng/mL); Cocaine Urine VISTA NEGATIVE (< 300 ng/mL); Ecstacy Urine VISTA NEGATIVE (< 500 ng/mL); Methadone Urine VISTA NEGATIVE (< 300 ng/mL); PCP Urine VISTA NEGATIVE (< 25 ng/mL); THC Urine VISTA NEGATIVE (< 50 ng/mL); Vista UDS pH Range 5
== END ==
PROVIDERS: Referring Provider Obstetrics & Gynecology; Visit Provider Obstetrics & Gynecology
DX: Z34.90 Encounter for supervision of normal pregnancy, unspecified, unspecified trimester (principal)
CPT/HCPCS: 36415; 80307; 82950; 87086; 87088

== ENCOUNTER 2021-10-03 11:19 | Outpatient (CLI) | payer MEDICAID, SELFPAY ==
--- NOTE | 2021-10-03 11:21 | US_ITS ---
STUDY: SECOND AND THIRD TRIMESTER OBSTETRICAL ULTRASOUND REASON FOR EXAM: Female, 20 years old cervical length check LMP: 04/20/2021. TECHNIQUE: Transvaginal TECHNICAL QUALITY: Adequate. PRIOR ULTRASOUND: None. FINDINGS: There is a single intrauterine fetus. The fetus is in a breech presentation. There is demonstrated cardiac activity with a heart rate of 160 bpm. There is a normal amniotic fluid volume. The largest amniotic fluid pocket measures 4.5 cm x 3.8 cm. The amniotic fluid index (RAFITA) is within normal limits. cm. The placenta is anterior in location and is not low lying. There are Grade 1 placental changes. The cervix measures 4 cm in length. The adnexal regions are not visualized. BIOMETRY: Age by LMP: 23 weeks, 5 days. SHANIQUA by LMP: 01/25/2022. US/Transvaginal w/Preg US IMPRESSION: Cervical length measures 4 cm. Electronically Signed: Julian Henson MD at 15:50 EST , Service support ,
== END 2021-10-03 23:59 | disposition short-term general hospital (02) ==
LOC: US 11:20
PROVIDERS: Referring Provider Obstetrics & Gynecology; Visit Provider Obstetrics & Gynecology
DX: O46.90 Antepartum hemorrhage, unspecified, unspecified trimester (principal)
CPT/HCPCS: 76817

== ENCOUNTER 2021-10-25 10:35 | Outpatient (CLI) | payer MEDICAID, SELFPAY ==
[2021-10-25 11:11] LABS: Absolute Lymphocyte Count 2.07 X10^3/uL (0.83-4.51); Absolute Neutrophil Count 5.9 X10^3/uL (2.0-7.7); Basophil# 0.02 X10^3/uL; Basophil% 0.2 % (0-1); Eosinophil# 0.04 X10^3/uL; Eosinophils% 0.5 % (0-5); Hematocrit 35.5 % (37-47); Hemoglobin 11.4 g/dL (12.0-15.0); Lymphocyte # 2.07 X10^3/ul (0.83-4.51); Lymphocyte % 24.5 % (19-41); Mean Corp Hgb Conc 32.1 g/dL (32-36); Mean Corpuscular Hgb 26.8 pg (27.0-32.0); Mean Corpuscular Volume 83.3 fL (81-99); Mean Platelet Vol. 8.9 fl (6.2-12.0); Monocyte# 0.44 X10^3/uL; Monocyte% 5.2 % (0-10); NRBC Flagged by Analyzer 0 % (0-5); Neutrophil # 5.85 X10^3/uL (2.7-7.7); Neutrophil % 69.2 % (47-70); Platelet Count 290 K/mm3 (150-450); RBC Distribution Width CV 14.8 % (11.6-14.6); RBC Distribution Width SD 44.6 fl (35.1-43.9); Red Blood Count 4.26 M/mm3 (4.2-5.4); White Blood Count 8.5 K/mm3 (4.4-11.0)
[2021-10-25 11:44] LABS: Glucose Challenge Gest 1H 50g 117 mg/dL (70-140)
== END 2021-10-25 23:59 | disposition home or self-care (01) ==
LOC: LAB 10:36
PROVIDERS: Referring Provider Obstetrics & Gynecology; Visit Provider Obstetrics & Gynecology
DX: Z34.92 Encounter for supervision of normal pregnancy, unspecified, second trimester (principal); Z3A.21 21 weeks gestation of pregnancy
CPT/HCPCS: 36415; 82950; 85025

== ENCOUNTER 2021-11-03 09:55 | Outpatient (CLI) | payer MEDICAID, SELFPAY ==
[2021-11-03 10:12] VITALS: BMI 36.4
[2021-11-03 10:15] VITALS: BP 134/61; PULSE 100
--- NOTE | 2021-11-03 10:37 | US_ITS ---
STUDY: SECOND AND THIRD TRIMESTER OBSTETRICAL ULTRASOUND - LIMITED REASON FOR EXAM: Female, 21 years old growth and RAFITA with attention to placenta for vag -- Vaginal bleeding LMP: 04/20/2021. PRIOR ULTRASOUND: Comparison is made with prior study dated 10/03/2021. TECHNIQUE: Transabdominal TECHNICAL QUALITY: Adequate. FINDINGS: There is a single intrauterine fetus. The fetus is in a cephalic presentation. There is demonstrated cardiac activity with a heart rate of 138 bpm. There is a normal amniotic fluid volume. The largest amniotic fluid pocket measures 5.3 cm x 5.7 cm. The amniotic fluid index (RAFITA) is within normal limits. The placenta is anterior in location and is not low lying. There are Grade 1 placental changes. The cervix measures 3.1 cm in length. BIOMETRY: BPD: 6.9 cm: 27 weeks, 4 days HC: 25 cm: 27 weeks, 0 days AC: 23.2 cm: 27 weeks, 3 days FL: 5.2 cm: 25 weeks, 5 days Age by LMP: 28 weeks, 1 days. SHANIQUA by LMP: 01/25/2022. age by current US: 27 weeks, 1 days. SHANIQUA by current US: 02/01/2022. Estimated weight: 1112 grams, +/- 167 grams, 23 percentile. US/OB Limited With Biometrics IMPRESSION: Single live intrauterine gestation with a mean gestational age of 27 weeks and 1 day. The placenta lies along the anterior wall of the uterus. No evidence of placenta previa. Electronically Signed: Julian Henson MD at 12:20 EST ,
[2021-11-03 11:05] LABS: Hematocrit 32.5 % (37-47); Hemoglobin 10.6 g/dL (12.0-15.0); Mean Corp Hgb Conc 32.6 g/dL (32-36); Mean Corpuscular Hgb 26.4 pg (27.0-32.0); Mean Corpuscular Volume 80.8 fL (81-99); Mean Platelet Vol. 8.8 fl (6.2-12.0); Platelet Count 316 K/mm3 (150-450); RBC Distribution Width CV 14.6 % (11.6-14.6); RBC Distribution Width SD 42.3 fl (35.1-43.9); Red Blood Count 4.02 M/mm3 (4.2-5.4); White Blood Count 9.2 K/mm3 (4.4-11.0)
[2021-11-03 11:18] LABS: Fibrinogen 384 mg/dl (203-444); International Normalized Ratio 1.1; Prothrombin Time (Protime)PT. 13.1 SECONDS (11.7-14.9)
[2021-11-03] MEDS: Betamethasone/Betamethasone 30 MG/5 ML Vial 12 MG IM (12:21)
[2021-11-03 12:29] VITALS: BP 113/73; PULSE 88; TEMP 36.5; O2SAT 98
[2021-11-03 12:30] VITALS: BP 113/73; PULSE 82
[2021-11-03 12:31] VITALS: PULSE 85; O2SAT 98
--- NOTE | 2021-11-03 12:41 | OB.TRI.PN_ITS ---
Progress Notes Date of Service: 11/03/21 Progress Note: Patient presents for triage evaluation secondary to vaginal bleeding in no acute bleeding today but has had weekly FHT: 150 Moderate variability reactive no decelerations category I tracing Cutler: no Contractions Assessment and plan: vaginal bleeding in [place] given, Reactive NST, reassuring maternal and status patient discharged to home to follow- up as schedule, plan weekly visits and fu with mfm for consult. See problem l ist details for additional plan information. Laboratory Studies: Laboratory Tests 11/03/21 11/03/21 Range/Units 10:45 10:45 WBC 9.2 (4.4-11.0) K/mm3 RBC 4.02 L (4.2-5.4) M/mm3 Hgb 10.6 L (12.0-15.0) g/dL Hct 32.5 L (37-47) % MCV 80.8 L (81-99) fL MCH 26.4 L (27.0-32.0) pg MCHC 32.6 (32-36) g/dL RDW Std Deviation 42.3 (35.1-43.9) fl RDW Coeff of Ed 14.6 (11.6-14.6) % Plt Count 316 (150-450) K/mm3 MPV 8.8 (6.2-12.0) fl PT 13.1 (11.7-14.9) SECONDS INR 1.1 Fibrinogen 384 (203-444) mg/dl Charges/Coding Procedures Urinary/Genital 52xxx-59xxx: [id number] non-stress test Interp Assessment & Plan (1) Vaginal bleeding during : COMMENT: persistent most days of the week, nl anatomy scan, nl placental location, repeat US and MFM consult. recommend weekly visits and nsts while persistent. Abruption workup negative.
== END 2021-11-03 23:59 | disposition home or self-care (01) ==
LOC: WPOUT 09:57 → WP 09:58
PROVIDERS: Visit Provider Obstetrics & Gynecology
DX: O46.93 Antepartum hemorrhage, unspecified, third trimester (principal); Z3A.28 28 weeks gestation of pregnancy
CPT/HCPCS: 59025; 59050; 76816; 85027; 85384; 85610; 96372; 99218; G0378; J0702

== ENCOUNTER 2021-11-04 12:00 | Outpatient (CLI) | payer MEDICAID, SELFPAY ==
[2021-11-04 12:05] VITALS: BMI 36.5
[2021-11-04 12:26] VITALS: BP 133/70; PULSE 91
[2021-11-04] MEDS: Betamethasone/Betamethasone 30 MG/5 ML Vial 12 MG IM (12:26)
--- NOTE | 2021-11-07 23:56 | OB.TRI.PN ---
Progress Notes Date of Service: 11/04/21 Progress Note: celestone prematuirty due to bleeding in
== END 2021-11-04 23:59 | disposition home or self-care (01) ==
LOC: WPOUT 12:09 → WP 12:10
PROVIDERS: Visit Provider Obstetrics & Gynecology
DX: O46.90 Antepartum hemorrhage, unspecified, unspecified trimester (principal); Z3A.00 Weeks of gestation of pregnancy not specified
CPT/HCPCS: 96372; 99218; G0378; J0702

== ENCOUNTER 2021-11-11 08:37 | Outpatient (CLI) | payer MEDICAID, SELFPAY | END 2021-11-11 23:59 | disposition home or self-care (01) | LOC: LABSPEC 08:41 | PROVIDERS: Referring Provider Obstetrics & Gynecology; Visit Provider Obstetrics & Gynecology | DX: O26.899 Other specified pregnancy related conditions, unspecified trimester (principal); N89.8 Other specified noninflammatory disorders of vagina | CPT/HCPCS: 87070; 87205 ==

== ENCOUNTER 2021-11-28 15:40 | Outpatient (CLI) | payer MEDICAID, SELFPAY ==
[2021-11-28 16:02] VITALS: BP 124/76; PULSE 90; TEMP 36.6
[2021-11-28 16:09] VITALS: BMI 37.2
--- NOTE | 2021-11-28 18:23 | OB.TRI.HP_ITS ---
HPI - General HPI Narrative JENNIE HAGAN, is a 21 F who presents on 11/29/2021 with vaginal spotting at home. She denies gush of fluid, decreased movement or contraction pain. Maternal Data Information SHANIQUA Calculator Estimated Delivery Date Method Current WG Current Estimate 01/25/22 LMP (Certain) 34w 5d Gestational age: 31w5d PFSH PFS Medical History H/O iron deficiency anemia Lab test positive for detection of COVID-19 virus Home Medications docosahexaenoic acid 200 mg capsule 1 mg PO DAILY 06/12/21 [History Last Taken 12/13/21] fexofenadine [Letitia Allergy] 60 mg PO DAILY 11/28/21 [History Last Taken 12/13/21] ferrous sulfate [Iron (ferrous sulfate)] 325 mg PO DAILY 12/03/21 [History Last Taken 12/14/21 09:30] promethazine 12.5 mg tablet 12.5 mg PO Q6H PRN #60 tab 12/12/21 [Rx Last Taken 12/13/21] prenat.vits,abdulaziz,ncj-gvcj-vcwki [ Vitamin] 1 tab PO DAILY 12/14/21 [History Last Taken 12/14/21 09:30] Allergy/AdvReac Type Severity Reaction Status Date / Time tree and shrub pollen Allergy Mild Other Verified 12/09/21 14:17 Family History Mother Hypertension Father Cancer throat- smoker Grandfather Diabetes Myocardial infarction Grandmother Diabetes Aunt Diabetes Social History household members: family number of children: 2 Smoking Status: Never smoker alcohol intake: never substance use type: does not use caffeine: Yes what type of physical activity do you participate in: none seatbelt use: always do you feel safe at home: Yes additional social history: 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 Date Name GA/Weeks Outcome Route Bth Weight Gen Labor Lgth Anesthesia Del Locatn Provider FOB 03/25/19 Luisa 40 live - full term 8lbs 7oz Female epidural [facility] 09/29/20 Radhames 39 live - full term 8lbs 2oz Male e pidural [facility] Delivery Date: 03/25/19 No complications Penny Marcos Delivery Date: 09/29/20 + Covid @ time of delivery; GHTN; mild shoulder dystocia; 2nd degree laceration; nuchal cord x1 tight Deyanira Alba Visit Details Expected Delivery Route/Plan Labor Preference CB/BF classes: [] labor support person: [] labor intervention preferences: minimal intervention desired, wants to use nitrous only. Epidural hurt her back last time. pain management options preferred: nitrous cut cord/dad catch: [] : [] PP control planned: [] discussed possible routes of delivery and associated risks: [] special requests: [] Plans Covid status:counseled regarding risk of covid in vs vaccination and declined vaccination Flu vaccine: completed during Tdap vaccine: [] Rhogam: [] LARC form signed: [] Problem list reviewed and updated with the most current plan of care details and appropriate orders placed. Relevant counseling for the gestational age provided. Continue routine care and follow up unless otherwise noted in visit notes/problem list details OB Flowsheet Initial Weight: 206 lb Date -?-?-?-?-?-?-?-?-?-?-?-?- EGA Weight BP Urine Prot -?-?-?-?-?-?-?-?-?-?-?-?- Glucose FHR FuHt Pres Dilation -?-?-?-?-?-?-?-?-?-?-?-?- Effaced St Visit Note 07/10/21 -?-?-?-?-?-?-?-?-?-?-?-?- 11w 4d 206 lb (+0 oz) 132/80 -?-?-?-?-?-?-?-?-?-?-?-?- 189 -?-?-?-?-?-?-?-?-?-?-?-?- SM- CRL 3.75cm c ons with LMP 08/08/21 -?-?-?-?-?-?-?-?-?-?-?-?- 15w 5d 204 lb 8 oz (-1 lb 8 oz) 120/60 Negative -?-?-?-?-?-?-?-?-?-?-?-?- Negative 161 -?-?-?-?-?-?-?-?-?-?-?-?- JV- pt still ble eding from small subchorionic hemorrhage. pt reassured today, bleeding precautions given. rto in 2 weeks for reassurance and sooner if bleeding becomes heavy. JV- pt still bleeding from s mall subchorionic hemorrhage. pt reassured today with bedside us. bleeding precautions given. rto in 2 weeks for reassurance and sooner if bleeding becomes heavy. 08/25/21 -?-?-?-?-?-?-?-?-?-?-?-?- 18w 1d 205 lb (-16 oz) 130/80 Negative -?-?-?-?-?-?-?-?-?-?-?-?- Negative -?-?-?-?-?-?-?-?-?-?-?-?- 09/20/21 -?-?-?-?-?-?-?-?-?-?-?-?- 21w 6d 203 lb (-3 lb) 112/66 Negative -?-?-?-?-?-?-?-?-?-?-?-?- Negative 145 22 -?-?-?-?-?-?-?-?-?-?-?-?- - has had some intermittent bleeding. no lof no regualr ctx 10/25/21 -?-?-?-?-?-?-?-?-?-?-?-?- 26w 6d 205 lb (-16 oz) 100/70 Negative -?-?-?-?-?-?-?-?-?-?-?-?- Negative 158 27 -?-?-?-?-?-?-?-?-?-?-?-?- JV- no lof, or d ec fm. still have some spotting. does not feel comfortable with baby asa due to bleeding. had covid and flu in . She is very concerned about the end of her and would like a 39 week IOL planned if possible so that her can be present. She wants SM if possible. 11/03/21 -?-?-?-?-?-?-?-?-?-?-?-?- 28w 1d 206 lb (+0 oz) 132/72 -?-?-?-?-?-?-?-?-?-?-?-?- 140 28 -?-?-?-?-?-?-?-?-?-?-?-?- SM- still having intermittent spotting. get US today. no regualr ctx. no pelvic pressure. good fm. no lof. SM- still having intermitten t spotting. get US today. no regualr ctx. no pelvic pressure. good fm. no lof. to l and d for steroids and mornitoring, eval 11/10/21 -?-?-?-?-?-?-?-?-?-?-?-?- 29w 1d 204 lb (-2 lb) 120/70 Negative -?-?-?-?-?-?-?-?-?-?-?-?- Negative 160 29 Cephalic 0 -?-?-?-?-?-?-?-?-?-?-?-?- JV- no lof but i s complaining of cramping and continued on and off bleeding. NST is reactive for gestational age. on pelvic exam the cervix is erythematous and there is a scant amount of discharge that may be only physiologic. red top tube collected. cx is closed visually. No signs of bleeding present. no cervical ectropion present. pt asking for note to be off work the remainder of and is seeing mfm on saturday. I have asked her to come to the office when and if she bleeds again so that we may see where the blood is coming from. ultrasound shows anterior non-low lying placenta. 11/16/21 -?-?-?-?-?-?-?-?-?-?-?-?- 30w 0d 208 lb 4 oz (+2 lb 4 oz) 132/60 Negative -?-?-?-?-?-?-?-?-?-?-?-?- Negative 150 30 Cephalic 0 -?-?-?-?-?-?-?-?-?-?-?-?- JV- no blood aga in on exam. no signs of external hemorrhoids. there is a prominent varicosity on the right outer labia. Pt was given options for admission in hospital for remainder of by [facility] and declined. She will t ry a light tampon in the lower aspect of the vagina and if sees blood next time she goes to the bathroom she is to remove the tampon. if there is blood on the tampon she will need admission for remainder of to [facility] in [place]. 11/22/21 -?-?-?-?-?-?-?-?-?-?-?-?- 30w 6d 209 lb (+3 lb) 130/70 Negative -?-?-?-?-?-?-?-?-?-?-?-?- Negative 150 -?-?-?-?-?-?-?-?-?-?-?-?- JV- pt states th at she is confident that the blood is coming from the vein on the outer labia however with the tampon trick, she noticed some brown discharge at the tip of the tampon. Will need ton continue nsts due to this. pt still declines admit. 11/28/21 -?-?-?-?-?-?-?-?-?-?-?-?- 31w 5d 210 lb 5.136 oz (+4 lb 5.136 oz) 124/76 -?-?-?-?-?-?-?-?-?-?-?-?- -?-?-?-?-?-?-?-?-?-?-?-?- 12/01/21 -?-?-?-?-?-?-?-?-?-?-?-?- 32w 1d 5 lb 3 oz (-200 lb 13 oz) 210 lb (+4 lb) 130/82 Negative -?-?-?-?-?-?-?-?-?-?-?-?- Negative 140 32 Cephalic 0 -?-?-?-?-?-?-?-?-?-?-?-?- SM- had some bro wn discharge, no activ ebleeding, no reuglar ctx good fm some pressure 12/03/21 -?-?-?-?-?-?-?-?-?-?-?-?- 32w 5d 210 lb 9.6 oz (+4 lb 9.6 oz) 140/82 130/75 133/67 141/80 142/79 133/71 131/76 126/79 126/64 132/72 125/68 134/72 126/75 128/63 109/53 110/51 126/63 132/62 118/57 121/69 131/63 148/66 128/56 127/74 117/58 115/51 115/51 114/53 114/53 108/66 -?-?-?-?-?-?-?-?-?-?-?-?- -?-?-?-?-?-?-?-?-?-?-?-?- 12/07/21 -?-?-?-?-?-?-?-?-?-?-?-?- 33w 0d 214 lb (+8 lb) 138/78 Negative -?-?-?-?-?-?-?-?-?-?-?-?- Negative 140 -?-?-?-?-?-?-?-?-?-?-?-?- Sm- light pink t ues night/, no activ bleeding no regular ctx, still dizzy no syncope. intermittent visual changes. optho WNL. will check labs today. 12/12/21 -?-?-?-?-?-?-?-?-?-?-?-?- 33w 5d 213 lb (+7 lb) 112/74 Negative -?-?-?-?-?-?-?-?-?-?-?-?- Negative -?-?-?-?-?-?-?-?-?-?-?-?- MH-NST only reac tive. Headache persists. Recent normal labs. Will discuss with JOSH 12/14/21 -?-?-?-?-?-?-?-?-?-?-?-?- 34w 0d 213 lb 13.574 oz (+7 lb 13.574 oz) 136/69 123/56 139/74 136/76 126/76 124/78 120/64 117/64 134/79 -?-?-?-?-?-?-?-?-?-?-?-?- -?-?-?-?--?-?-?-?-?-?-?-?- 12/15/21 -?-?-?-?-?-?-?-?-?-?-?-?- 34w 1d 212 lb (+6 lb) 106/69 Negative -?-?-?-?-?-?-?-?-?-?-?-?- Negative 150 -?-?-?-?-?-?-?-?-?-?-?-?- SM- no vb lof so me fm no regular ctx. seen on l and d yesterday for elevated bps at home, all bps WNL and labs WNL, recommended to be admitted overnight and patient left AMA. evaluated today and reactive NST, isolated 10 mild variable, will get RAFITA today. ROS Constitutional Constitutional: Reports systems reviewed and no addt'l complaints, except as documented Gastrointestinal Gastrointestinal: Denies bloating, constipation, cramping, diarrhea, nausea or vomiting Genitourinary Genitourinary: Reports other Details: Denies vaginal odor, vaginal bleeding, or vaginal discharge ; Denies difficulty urinating or flank pain Physical Exam HEENT normocephalic Resp normal respiratory effort and normal air movement no CVA tenderness Extremity normal to inspection General Extremity: edema bilateral (trace ) NST FHR Rate Baby A Baseline: 140 Variability:: Moderate Accelerations:: 15 x 15 Decelerations:: None NST Reactive:: Yes FHR Category:: Category I Assessment & Plan (1) Vaginal bleeding during : COMMENT: stable but intermittent. nl anatomy scan, nl placental location, repeat US and MFM consult agree with increased testing. Repeat US nl, recommend weekly visits and nsts while persistent. Abruption workup negative. twice weekly at 32 PLAN: dc to home with close follow up Charges/Coding Multi Select Codes Visit Charges Office Visit/Consults: 63630 OV L3 Est Urinary/Genital Urinary/Genital CPT Codes: 56292-17 non-stress test Interp
== END 2021-11-28 23:59 | disposition home or self-care (01) ==
LOC: WPOUT 15:40 → WP 15:41
PROVIDERS: Referring Provider Obstetrics & Gynecology; Visit Provider Obstetrics & Gynecology
DX: O26.90 Pregnancy related conditions, unspecified, unspecified trimester (principal); O20.8 Other hemorrhage in early pregnancy; Z3A.31 31 weeks gestation of pregnancy; Z86.16 Personal history of COVID-19
CPT/HCPCS: 59025; 59050; 99218; G0378

== ENCOUNTER 2021-12-03 15:30 | Outpatient (CLI) | payer MEDICAID, SELFPAY ==
[2021-12-03] VITALS (18 sets, daily range): BP systolic 125–142; BP diastolic 63–82; PULSE 85–109; TEMP 36.2–36.8; O2SAT 97–99; BMI 37.3
--- NOTE | 2021-12-03 16:18 | US_ITS ---
STUDY: Ultrasound OB Biophysical Profile REASON FOR EXAM: Female, 21 years old Decreased FM/bleeding TECHNIQUE: Transabdominal PRIOR ULTRASOUND: None. FINDINGS: There is a single intrauterine fetus. The fetus is in a cephalic presentation. There is demonstrated cardiac activity with a heart rate of 159 bpm. There is a normal amniotic fluid volume. The largest amniotic fluid pocket measures 5 cm. The amniotic fluid index (RAFITA) is 12.6 cm. The placenta is anterior and not low-lying. There are Grade 0 placental changes. BIOPHYSICAL PROFILE (BPP): 04/23 -- Breathin/2. -- Movement: 2/2. -- Tone: 2/2. --RAFITA: 2/2. US/Biophysical Prof W/O Non Stres IMPRESSION: Normal BPP. Electronically Signed: Kristian Quinones MD at 19:19 EDT ,
[2021-12-03] MEDS: Betamethasone/Betamethasone 30 MG/5 ML Vial 12 MG IM (16:45)
[2021-12-03] MEDS: 0.9 % NaCl (Sterile) Posiflush 10 mL IV (16:47)
[2021-12-03 16:56] LABS: Hematocrit 33.8 % (37-47); Mean Corp Hgb Conc 32.5 g/dL (32-36); Mean Corpuscular Hgb 25.6 pg (27.0-32.0); Mean Corpuscular Volume 78.6 fL (81-99); Mean Platelet Vol. 8.8 fl (6.2-12.0); Platelet Count 374 K/mm3 (150-450); RBC Distribution Width CV 14.5 % (11.6-14.6); RBC Distribution Width SD 41.5 fl (35.1-43.9); White Blood Count 12.8 K/mm3 (4.4-11.0)
[2021-12-03 17:06] LABS: Protein, Urine (Random) 32.1 mg/dL (<11.9); Protein:Creat Ratio 236 mg/g CRE (0-200)
[2021-12-03 17:14] LABS: AST(SGOT) 9 U/L (15-37); Alanine Aminotransfer ALT/SGPT 15 U/L (13-56); Creatinine, Serum 0.66 mg/dL (0.55-1.02); EST Glomerular Filtration Rate 120 mL/min (>60); Est Glom Filt Rate - Afr Amer 145 mL/min (>60); Uric Acid 3.2 mg/dL (2.6-6.0)
[2021-12-03] MEDS: Lactated Ringers 1,000 ML 999 ML IV (18:24)
--- NOTE | 2021-12-03 19:34 | HP.PCM.OB_ITS ---
HPI - General HPI Narrative JENNIE HAGAN, is a 21 y/o @ 32 weeks 3 days who presents to L&D with the complaint of epigastric pain and shooting star vision. She states that at home her blood pressures were 150's/80'-90's. She also complains of decreased movement and had some brown staining once again (chronic issue, refused admission in [place]) Maternal Data Information SHANIQUA Calculator Estimated Delivery Date Method Current WG Current Estimate 01/25/22 LMP (Certain) 32w 3d [facility] Medical History H/O iron deficiency anemia Lab test positive for detection of COVID-19 virus Home Medications docosahexaenoic acid 200 mg capsule 1 mg PO DAILY 06/12/21 [History Last Taken 11/28/21 08:00] fexofenadine [Letitia Allergy] 60 mg PO DAILY 11/28/21 [History Last Taken 11/28/21 08:00] ferrous sulfate [Iron (ferrous sulfate)] 325 mg PO DAILY 12/03/21 [History Last Taken Unknown] Allergy/AdvReac Type Severity Reaction Status Date / Time tree and shrub pollen Allergy Mild Other Verified 12/01/21 11:05 Family History Mother Hypertension Father Cancer throat- smoker Grandfather Diabetes Myocardial infarction Grandmother Diabetes Aunt Diabetes Social History household members: family number of children: 2 Smoking Status: Never smoker alcohol intake: never substance use type: does not use caffeine: Yes what type of physical activity do you participate in: none seatbelt use: always do you feel safe at home: Yes additional social history: 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 Date Name GA/Weeks Outcome Route Bth Weight Infant Gen Labor Lgth Anesthesia Del Locatn Provider FOB 03/25/19 Luisa 40 live - full term 8lbs 7oz Female epidural [facility] 09/29/20 Radhames 39 live - full term 8lbs 2oz Male e pidural [facility] Delivery Date: 03/25/19 No complications Penny Marcos Delivery Date: 09/29/20 + Covid @ time of delivery; GHTN; mild shoulder dystocia; 2nd degree laceration; nuchal cord x1 tight Anjali,Deyanira Visit Details Expected Delivery Route/Plan Labor Preference CB/BF classes: [] labor support person: [] labor intervention preferences: minimal intervention desired, wants to use nitrous only. Epidural hurt her back last time. pain management options preferred: nitrous cut cord/dad catch: [] : [] PP control planned: [] discussed possible routes of delivery and associated risks: [] special requests: [] Plans Covid status:counseled regarding risk of covid in vs vaccination and declined vaccination Flu vaccine: completed during Tdap vaccine: [] Rhogam: [] LARC form signed: [] Problem list reviewed and updated with the most current plan of care details and appropriate orders placed. Relevant counseling for the gestational age provided. Continue routine care and follow up unless otherwise noted in visit notes/problem list details OB Flowsheet Initial Weight: 206 lb Date -?-?-?-?-?-?-?-?-?-?-?-?- EGA Weight BP Urine Prot -?-?-?-?-?-?-?-?-?-?-?-?- Glucose FHR FuHt Pres Dilation -?-?-?-?-?-?-?-?-?-?-?-?- Effaced St Visit Note 07/10/21 -?-?-?-?-?-?-?-?-?-?-?-?- 11w 4d 206 lb (+0 oz) 132/80 -?-?-?-?-?-?-?-?-?-?-?-?- 189 -?-?-?-?-?-?-?-?-?-?-?-?- SM- CRL 3.75cm c ons with LMP 08/08/21 -?-?-?-?-?-?-?-?-?-?-?-?- 15w 5d 204 lb 8 oz (-1 lb 8 oz) 120/60 Negative -?-?-?-?-?-?-?-?-?-?-?-?- Negative 161 -?-?-?-?-?-?-?-?-?-?-?-?- JV- pt still ble eding from small subchorionic hemorrhage. pt reassured today, bleeding precautions given. rto in 2 weeks for reassurance and sooner if bleeding becomes heavy. JV- pt still bleeding from s mall subchorionic hemorrhage. pt reassured today with bedside us. bleeding precautions given. rto in 2 weeks for reassurance and sooner if bleeding becomes heavy. 08/25/21 -?-?-?-?-?-?-?-?-?-?-?-?- 18w 1d 205 lb (-16 oz) 130/80 Negative -?-?-?-?-?-?-?-?-?-?-?-?- Negative -?-?-?-?-?-?-?-?-?-?-?-?- 09/20/21 -?-?-?-?-?-?-?-?-?-?-?-?- 21w 6d 203 lb (-3 lb) 112/66 Negative -?--?-?-?-?-?-?-?-?-?-?-?- Negative 145 22 -?-?-?-?-?-?-?-?-?-?-?-?- SM- has had some intermittent bleeding. no lof no regualr ctx 10/25/21 -?-?-?-?-?-?-?-?--?-?-?-?- 26w 6d 205 lb (-16 oz) 100/70 Negative -?-?-?-?-?-?-?-?-?-?-?-?- Negative 158 27 -?-?-?-?-?-?-?-?-?-?-?-?- JV- no lof, or d ec fm. still have some spotting. does not feel comfortable with baby asa due to bleeding. had covid and flu in . She is very concerned about the end of her and would like a 39 week IOL planned if possible so that her can be present. She wants SM if possible. 11/03/21 -?-?-?-?-?-?-?-?-?-?-?-?- 28w 1d 206 lb (+0 oz) 132/72 -?-?-?-?-?-?-?-?-?-?-?-?- 140 28 -?-?-?-?-?-?-?-?-?-?-?-?- SM- still having intermittent spotting. get US today. no regualr ctx. no pelvic pressure. good fm. no lof. SM- still having intermitten t spotting. get US today. no regualr ctx. no pelvic pressure. good fm. no lof. to l and d for steroids and mornitoring, eval 11/10/21 -?-?-?-?-?-?-?-?-?-?-?-?- 29w 1d 204 lb (-2 lb) 120/70 Negative -?-?-?-?-?-?-?-?-?-?-?-?- Negative 160 29 Cephalic 0 -?-?-?-?-?-?-?-?-?-?-?-?- JV- no lof but i s complaining of cramping and continued on and off bleeding. NST is reactive for gestational age. on pelvic exam the cervix is erythematous and there is a scant amount of discharge that may be only physiologic. red top tube collected. cx is closed visually. No signs of bleeding present. no cervical ectropion present. pt asking for note to be off work the remainder of and is seeing mfm on saturday. I have asked her to come to the office when and if she bleeds again so that we may see where the blood is coming from. ultrasound shows anterior non-low lying placenta. 11/16/21 -?-?-?-?-?-?-?-?-?-?-?-?- 30w 0d 208 lb 4 oz (+2 lb 4 oz) 132/60 Negative -?-?--?-?-?-?-?-?-?-?-?-?- Negative 150 30 Cephalic 0 -?-?-?-?-?-?-?-?-?-?-?-?- JV- no blood aga in on exam. no signs of external hemorrhoids. there is a prominent varicosity on the right outer labia. Pt was given options for admission in hospital for remainder of by [facility] and declined. She will try a light tampon in the lower aspect of the vagina and if sees blood next time she goes to the bathroom she is to remove the tampon. if there is blood on the tampon she will need admission for remainder of to [facility] in [place]. 11/22/21 -?--?-?-?-?-?-?-?-?-?-?-?- 30w 6d 209 lb (+3 lb) 130/70 Negative -?-?-?-?-?-?-?-?-?-?-?-?- Negative 150 -?-?-?-?-?-?-?-?-?-?-?-?- JV- pt states th at she is confident that the blood is coming from the vein on the outer labia however with the tampon trick, she noticed some brown discharge at the tip of the tampon. Will need ton continue nsts due to this. pt still declines admit. 12/01/21 -?-?-?-?-?-?-?-?-?-?-?-?- 32w 1d 5 lb 3 oz (-200 lb 13 oz) 210 lb (+4 lb) 130/82 Negative -?-?-?-?-?-?-?-?-?-?-?-?- Negative -?-?-?-?-?-?-?-?-?-?-?-?- 12/03/21 -?-?-?-?-?-?-?-?-?-?-?-?- 32w 3d 210 lb 9.6 oz (+4 lb 9.6 oz) 140/82 130/75 133/67 141/80 142/79 133/71 131/76 126/79 126/64 132/72 125/68 134/72 126/75 -?-?-?-?-?-?-?-?-?-?-?-?- -?-?-?-?-?-?-?-?-?-?-?-?- ROS Constitutional Constitutional: Denies change in weight, fatigue, fever(s), headache(s), poor appetite or weakness Eyes Eyes: Denies blurry vision, change in vision, seeing flashes or spots in vision ENT HEENT: Denies dizziness, headache(s), loss taste/smell or sore throat Cardiovascular Cardiovascular: Denies chest pain, dizziness, dyspnea, irregular heart rhythm, leg edema, palpitations, rapid heart rate or vomiting Respiratory/Chest Respiratory/Chest: Denies chest tightness, cough, dyspnea or breast pain Gastrointestinal Gastrointestinal: Denies abdominal pain, anorexia, constipation, cramping, diarrhea, hemorrhoids, vomiting or weight changes Genitourinary Genitourinary: Denies dysuria, flank pain, genital lesions, genital pain, urinary frequency or urinary urgency Musculoskeletal Musculoskeletal: Denies back pain, difficulty walking, joint pain, limited range of motion, muscle cramps or numbness Integumentary Integumentary: Denies lesions or unusual bruising Neurologic Neurologic: Denies abnormal movements, abnormal speech, dizziness, numbness, seizure-like activity or syncope Psychiatric Psychiatric: Denies anxiety, behavioral changes, change in appetite, change in libido, cognitive impairment, confusion, depression, difficulty concentrating, hallucinations or suicidal thoughts Endocrine Endocrinology: Denies excessive sweating, polydipsia or polyuria Hematologic/Lymphatic Hematologic/Lymphatic: Denies easy bleeding, easy bruising or lymphadenopathy Allergic/Immunologic Allergic/Immunologic: Denies itchy eyes, lip swelling, seasonal rhinorrhea, rhinitis, throat swelling, tongue swelling, eczemia, wheezing or asthma Vital Signs Vital Signs Vital Signs: 12/03/21 15:51 12/03/21 15:52 12/03/21 16:07 Temperature 98.2 F Temperature Source Axillary Pulse Rate 109 H 104 H 96 Blood Pressure 140/82 H 130/75 H BP Systolic 140 130 BP Diastolic 82 75 Pulse Ox 99 12/03/21 16:22 12/03/21 16:37 12/03/21 16:52 Temperature Temperature Source Pulse Rate 93 94 103 H Blood Pressure 133/67 H 141/80 H 142/79 H BP Systolic 133 141 142 BP Diastolic 67 80 79 Pulse Ox 12/03/21 17:07 12/03/21 17:22 12/03/21 18:25 Temperature Temperature Source Pulse Rate 101 H 88 108 H Blood Pressure 133/71 H 131/76 H 126/79 H BP Systolic 133 131 126 BP Diastolic 71 76 79 Pulse Ox 12/03/21 18:27 12/03/21 18:40 12/03/21 18:55 Temperature 97.7 F L Temperature Source Temporal Pulse Rate 100 103 H 97 Blood Pressure 126/64 H 132/72 H BP Systolic 126 132 BP Diastolic 64 72 Pulse Ox 98 12/03/21 19:10 12/03/21 19:25 Temperature Temperature Source Pulse Rate 91 87 Blood Pressure 125/68 H 134/72 H BP Systolic 125 134 BP Diastolic 68 72 Pulse Ox Weight Weight: 210 lb 9.6 oz Body Mass Index (BMI) 37.3 Physical Exam Const alert, oriented x3, no apparent distress and healthy appearing General Appearance: cooperative; Negative for anxious HEENT normocephalic Face and Sinus: normal facial exam Eyes EOMs intact bilaterally and no scleral icterus General Eye: normal appearance of both eyes Neck full ROM and supple Lymph Lymphatic: no lymphadenopathy noted Chest Chest: abnormal inspection of the chest Resp normal respiratory effort Effort and Inspection: able to speak in complete sentences Cardio regular rate GI soft to palpation and non-tender Inspection: gravid Palpation: soft; Negative for tender Back/Spine no CVA tenderness Extremity normal to inspection, full ROM and no clubbing, cyanosis or edema General Extremity: Negative for calf tenderness or edema Skin Lesions: no lesions Rashes: no rashes Psych mental status grossly normal Labs Labs Labs: Blood Type O POSITIVE Antibody Screen NEGATIVE Hct 33.8 % (37-47) L Hgb 11.0 g/dL (12.0-15.0) L Obstetrics US Syphilis Total Ab Non-reactive Rubella IgG Antibody Reactive (Nonreactive) Hep Bs Antigen Non-Reactive (Nonreactive) Chlamydia DNA (RAJ) Negative (Negative) Neisseria gonorrhoeae DNA (RAJ) Negative (Negative) HIV 1&2 Antibody Non-Reactive (Nonreactive) Glucose 1 Hr 50 gm 117 mg/dL (70-140) Rhogam given: No Assessment & Plan (1) Lab test positive for detection of COVID-19 virus: COMMENT: 81mg asa daily and 32 & 36 wk growth US (2) Vaginal bleeding during : COMMENT: persistent most days of the week, nl anatomy scan, nl placental location, repeat US and MFM consult. Repeat US nl, recommend weekly visits and nsts while persistent. Abruption workup negative. twice weekly at 32 (3) H/O iron deficiency anemia: COMMENT: h/o iron transfusions (4) Supervision of other normal : COMMENT: PRR SHANIQUA: 01[birth year] PC: Radhames Miguel Spouse: Pankaj (5) : QUALIFIERS: Weeks of gestation: 32 weeks Qualified Code(s): Z3A.32 - 32 weeks gestation of COMMENT: genetics- low risk female and carrier neg. Aug afp screen. nl anatomy PLAN: visual changes, epigastric pain, decreased FM, report of elevated bp's at home -normal pr:cr ratio -normal blood pressure -normal LFT's and cr. -nmp cbc -bpp 04/23 at this point the only evidence that we currently have to diagnose pre-eclampsia is the patient's subjective report. plan to admit for observation and collect a formal 24 hr urine. I have discussed with the patient that some experts suggest that we only needs visual disturbances to constitute severe pre-eclampsia, however in light of all other physical findings being negative, we will obtain an MFM consult once the formal 24 hr urine is back. -rescue sterioids x 2 started today -continue baby asa -reg diet for now. -q 2 hr NSTs -q 4 hr vital signs unless complains of headache.
[2021-12-03] MEDS: Famotidine 20 MG Tablet 40 MG PO (20:45)
[2021-12-04] VITALS (31 sets, daily range): BP systolic 109–148; BP diastolic 51–74; PULSE 80–121; TEMP 36.6–37.3; O2SAT 92–98
--- NOTE | 2021-12-04 06:51 | PCM.PN.OB ---
Subjective Subjective pt is laying in bed comfortably and states that her visual changes are now gone. Initially she was supposed to have her mom bring in the blood pressure machine from home that gave all of the high readings before presenting to the hospital but now states that she is unsure her mom can do that. Objective Data Objective Data Vital Signs: Vital Signs Temp Pulse BP Pulse Ox 98.1 F 92 109/53 L 98 12/04/21 03:48 12/04/21 03:49 12/04/21 03:49 12/04/21 03:49 Weight: 210 lb 9.6 oz Body Mass Index (BMI) 37.3 Intake & Output: Intake and Output for Last 24 Hours 12/02/21 12/03/21 12/04/21 23:59 23:59 23:59 Intake Total 1240 / 1240 100 / 100 Output Total 1000 / 1000 450 / 450 Balance 240 / 240 -350 / -350 Lab / Micro Data Result Diagrams: 12/03/21 16:20 12/03/21 16:20 Labs: Laboratory Results - last 24 hr 12/03/21 16:20: WBC 12.8 H, RBC 4.30, Hgb 11.0 L, Hct 33.8 L, MCV 78.6 L, MCH 25.6 L, MCHC 32.5, RDW Std Deviation 41.5, RDW Coeff of Ed 14.5, Plt Count 374, MPV 8.8 12/03/21 16:20: U Random Total Protein 32.1 H, Urine Creatinine 136.00, Protein/Creatinin Ratio 236 H 12/03/21 16:20: Creatinine 0.66, Estim Creat Clear Calc 110.60, Est GFR (MDRD) Af Amer 145, Est GFR (MDRD) Non-Af 120, Uric Acid 3.2, AST 9 L, ALT 15 Radiography Diagnostic Testing: Radiology Impression Biophysical Profile Ultrasound 12/03/21 16:18 IMPRESSION: Normal BPP. Electronically Signed: Kristian Quinones MD at 19:19 EDT , ROS Constitutional Constitutional: Denies chills, fatigue, fever(s), poor appetite or weakness Eyes Eyes: Denies blurry vision, change in vision, seeing flashes or spots in vision ENT HEENT: Denies dizziness, headache(s), loss taste/smell or sore throat Cardiovascular Cardiovascular: Denies chest pain, dizziness, dyspnea, irregular heart rhythm, palpitations or rapid heart rate Respiratory/Chest Respiratory/Chest: Denies chest tightness, cough, dyspnea or breast pain Gastrointestinal Gastrointestinal: Denies abdominal pain, constipation or vomiting Genitourinary Genitourinary: Denies dysuria or flank pain Musculoskeletal Musculoskeletal: Denies difficulty walking, joint pain, limited range of motion or numbness Neurologic Neurologic: Denies abnormal movements, abnormal speech, dizziness, numbness, seizure-like activity or syncope Psychiatric Psychiatric: Denies anxiety, behavioral changes, change in appetite, confusion, depression or suicidal thoughts Physical Exam Const alert, oriented x3 and no apparent distress General Appearance: cooperative and comfortable Resp normal respiratory effort Cardio regular rate GI Palpation: soft Bimanual Exam - Adnexa, Other: Negative for cul-de-sac fullness Back/Spine no CVA tenderness and thoraco-lumbar ROM normal Extremity normal to inspection, no clubbing, cyanosis or edema, no calf tenderness and no pedal edema Psych mental status grossly normal, thought process normal, cooperative, affect normal, speech normal, activity/motor behavior normal, denies homicidal ideation and denies suicidal ideation NST FHR Rate Baby A Variability:: Moderate Accelerations:: 15 x 15 Decelerations:: None NST Reactive:: Yes FHR Category:: Category I Assessment & Plan (1) Lab test positive for detection of COVID-19 virus: COMMENT: 81mg asa daily and 32 & 36 wk growth US (2) Vaginal bleeding during : COMMENT: persistent most days of the week, nl anatomy scan, nl placental location, repeat US and MFM consult. Repeat US nl, recommend weekly visits and nsts while persistent. Abruption workup negative. twice weekly at 32 (3) H/O iron deficiency anemia: COMMENT: h/o iron transfusions (4) Supervision of other normal : COMMENT: PRR SHANIQUA: 01/[birth year] PC: Radhames Miguel Spouse: Pankaj (5) : QUALIFIERS: Weeks of gestation: 32 weeks Qualified Code(s): Z3A.32 - 32 weeks gestation of COMMENT: genetics- low risk female and carrier neg. Aug afp screen. nl anatomy PLAN: plan to continue the 24 hr urine collection mom to bring in home blood pressure cuff to compare to our readings 2nd dose of celestone tonight. if pre-e may require in house monitoring until 34 weeks (if severe) and deliver at 34 weeks. otherwise, if mild will deliver at 37 weeks. growth ultrasounds with MFM . if due will order one today.
[2021-12-04] MEDS: Famotidine 20 MG Tablet 40 MG PO (09:33)
[2021-12-04] MEDS: Aspirin 81 MG TAB.CHEW PO (09:33)
[2021-12-04 09:41] LABS: Absolute Lymphocyte Count 1.98 X10^3/uL (0.83-4.51); Absolute Neutrophil Count 14.7 X10^3/uL (2.0-7.7); Basophil# 0.03 X10^3/uL; Basophil% 0.2 % (0-1); Hematocrit 32.3 % (37-47); Hemoglobin 10.4 g/dL (12.0-15.0); Lymphocyte # 1.98 X10^3/ul (0.83-4.51); Lymphocyte % 11.1 % (19-41); Mean Corp Hgb Conc 32.2 g/dL (32-36); Mean Corpuscular Hgb 25.2 pg (27.0-32.0); Mean Corpuscular Volume 78.2 fL (81-99); Mean Platelet Vol. 8.6 fl (6.2-12.0); Monocyte# 0.76 X10^3/uL; Monocyte% 4.3 % (0-10); NRBC Flagged by Analyzer 0 % (0-5); Neutrophil # 14.72 X10^3/uL (2.7-7.7); Neutrophil % 82.8 % (47-70); Platelet Count 364 K/mm3 (150-450); RBC Distribution Width CV 14.5 % (11.6-14.6); RBC Distribution Width SD 40.7 fl (35.1-43.9); Red Blood Count 4.13 M/mm3 (4.2-5.4); White Blood Count 17.8 K/mm3 (4.4-11.0)
[2021-12-04 10:00] LABS: ALB/GLOB Ratio 0.6 RATIO (0.9-2.4); AST(SGOT) 8 U/L (15-37); Alanine Aminotransfer ALT/SGPT 13 U/L (13-56); Albumin, Serum 2.7 g/dL (3.2-5.0); Alkaline Phosphatase 137 U/L (45-117); Anion Gap 7 (5-15); BUN 9 mg/dL (7-18); BUN/Creat Ratio 16.3 RATIO (10-20); Calcium,Total 9.2 mg/dL (8.5-10.1); Chloride 107 mmol/L (98-107); Creatinine, Serum 0.55 mg/dL (0.55-1.02); EST Glomerular Filtration Rate 146 mL/min (>60); Est Glom Filt Rate - Afr Amer 177 mL/min (>60); Estimated Creatinine Clearance 132.72 ml/min; Globulin 4.2 g/dL (2.2-4.2); Glucose 105 mg/dL (74-106); LDH 124 U/L (84-246); Lipase 44 U/L (73-393); Protein, Total 6.9 g/dL (6.4-8.2); Sodium Level 137 mmol/L (136-145)
[2021-12-04] MEDS: Acetaminophen/Butalbital/Caffe 1 Tablet 2 TABLET PO (14:30)
[2021-12-04] MEDS: Betamethasone/Betamethasone 30 MG/5 ML Vial 12 MG IM (17:08)
--- NOTE | 2021-12-04 17:57 | PN.OBGYN_ITS ---
Subjective Subjective patient co rodriges went from 7 to a 4 with fioricet, having floaters and black spots in vision this afternoon. some upper abdominal discomfort. no vb lof good fm no regular ctx, co some palpitations since steroid shot. Objective Data Objective Data Vital Signs: Vital Signs Temp Pulse BP Pulse Ox 98.5 F 103 H 121/69 H 92 12/04/21 17:42 12/04/21 17:42 12/04/21 17:42 12/04/21 17:42 Weight: 210 lb 9.6 oz Body Mass Index (BMI) 37.3 Intake & Output: Intake and Output for Last 24 Hours 12/02/21 12/03/21 12/04/21 23:59 23:59 23:59 Intake Total 1240 / 1240 100 / 100 Output Total 1000 / 1000 450 / 450 Balance 240 / 240 -350 / -350 Lab / Micro Data Result Diagrams: 12/04/21 09:25 12/04/21 09:25 Labs: Laboratory Results - last 24 hr 12/04/21 09:25: Sodium 137, Potassium 4.0, Chloride 107, Carbon Dioxide 23.0, Anion Gap 7, BUN 9, Creatinine 0.55, Estim Creat Clear Calc 132.72, Est GFR (MDRD) Af Amer 177, Est GFR (MDRD) Non-Af 146, BUN/Creatinine Ratio 16.3, Glucose 105, Calcium 9.2, Total Bilirubin 0.40, AST 8 L, ALT 13, Alkaline Phosphatase 137 H, Lactate Dehydrogenase 124, Total Protein 6.9, Albumin 2.7 L, Globulin 4.2, Albumin/Globulin Ratio 0.6 L, Lipase 44 L 12/04/21 09:25: WBC 17.8 H, RBC 4.13 L, Hgb 10.4 L, Hct 32.3 L, MCV 78.2 L, MCH 25.2 L, MCHC 32.2, RDW Std Deviation 40.7, RDW Coeff of Ed 14.5, Plt Count 364, MPV 8.6, Immature Gran % (Auto) 1.600 H, Neut % (Auto) 82.8 H, Lymph % (Auto) 11.1 L, [place] % (Auto) 4.3, Eos % (Auto) 0.0, Baso % (Auto) 0.2, Absolute Neuts (auto) 14.7 H, Absolute Lymphs (auto) 1.98, Nucleated RBC % 0 Radiography Diagnostic Testing: Radiology Impression Biophysical Profile Ultrasound 12/03/21 16:18 IMPRESSION: Normal BPP. Electronically Signed: Kristian Quinones MD at 19:19 EDT , ROS Constitutional Constitutional: Denies chills, fatigue, fever(s), poor appetite or weakness Eyes Eyes: Reports change in vision and spots in vision; Denies blurry vision ENT HEENT: Reports headache(s); Denies dizziness, loss taste/smell or sore throat Cardiovascular Cardiovascular: Reports palpitations; Denies chest pain, dizziness, dyspnea, irregular heart rhythm or rapid heart rate Respiratory/Chest Respiratory/Chest: Denies chest tightness, cough, dyspnea or breast pain Gastrointestinal Gastrointestinal: Reports heartburn; Denies abdominal pain, constipation or vomiting Genitourinary Genitourinary: Denies dysuria or flank pain Musculoskeletal Musculoskeletal: Denies difficulty walking, joint pain, limited range of motion or numbness Neurologic Neurologic: Denies abnormal movements, abnormal speech, dizziness, numbness, seizure-like activity or syncope Psychiatric Psychiatric: Denies anxiety, behavioral changes, change in appetite, confusion, depression or suicidal thoughts Physical Exam Const alert, oriented x3 and no apparent distress HEENT Head and Scalp: normocephalic and atraumatic Eyes EOMs intact bilaterally Neck full ROM and no lymphadenopathy Chest inspection of chest normal Resp normal respiratory effort GI GI Narrative: gravid, abdomen nontender, AGA Neuro no focal motor deficits Motor Exam: clonus absent NST FHR Rate Baby A Baseline: 140 Variability:: Moderate Accelerations:: 15 x 15 Decelerations:: None NST Reactive:: Yes FHR Category:: Category I Uterine Activity:: no regular Assessment & Plan (1) Lab test positive for detection of COVID-19 virus: COMMENT: 81mg asa daily and 32 & 36 wk growth US (2) Vaginal bleeding during : COMMENT: persistent most days of the week, nl anatomy scan, nl placental location, repeat US and MFM consult. Repeat US nl, recommend weekly visits and nsts while persistent. Abruption workup negative. twice weekly at 32 (3) H/O iron deficiency anemia: COMMENT: h/o iron transfusions (4) Supervision of other normal : COMMENT: PRR SHANIQUA: 01/[birth year] PC: Radhames Miguel Spouse: Pankaj (5) : QUALIFIERS: Weeks of gestation: 32 weeks Qualified Code(s): Z3A.32 - 32 weeks gestation of COMMENT: genetics- low risk female and carrier neg. Aug afp screen. nl anatomy (6) Visual changes: COMMENT: see a/p of RODRIGES. plan optho cs if neg CT of head and nl serial labs. serial bps with STO. (7) Headache in : COMMENT: nl bps, serial preeclampsia labs. fioricet/tylenol given. 24 hour urine collected. STO. bmz x 2 given. discussed with MFM, ct head ordered due to visual changes and absent of other signs of preeclampsia, if stable tomorrow and able to obtain optho consult will dc for OP management. (8) Prematurity of fetus: COMMENT: GABRIELA 12/03 and 12/04 PLAN: see plan details Charges/Coding Procedures Urinary/Genital [id number]: 58510-92 non-stress test Interp
--- NOTE | 2021-12-04 18:15 | CT_ITS ---
STUDY: CT BRAIN WITH AND WITHOUT CONTRAST REASON FOR EXAM: Female, 21 years old. visual changes and headache, nl bps -- , discussed risks and consents RADIATION DOSAGE (If Supplied By Facility): CTDIvol = ( 44.99 ) mGy, DLP = ( 1513.48 ) mGycm TECHNIQUE: Transaxial CT imaging of the brain was performed pre and post contrast administration. The examination was performed with intravenous administration of IV 50mL Isovue-370. Individualized dose optimization techniques were used for this CT. COMPARISON: None. FINDINGS: Normal soft tissue structures. Normal calvarium. Normal size ventricles and extra-axial spaces for the patient''s age. Normal white matter tracts of the cerebral hemispheres. Normal basal ganglia and thalami. Normal brainstem. Normal cerebellum. There is no intracranial hemorrhage. There are no findings of an acute ischemic infarction. Normal visualized paranasal sinuses. CT/Brain/Head W/WO Contrast IMPRESSION: Normal unenhanced and enhanced CT scan of the brain. Electronically Signed: Marc García DO at 19:18 EDT ,
[2021-12-04] MEDS: Lactated Ringers 1,000 ML 999 ML IV (19:28)
[2021-12-04] MEDS: 0.9 % NaCl (Sterile) Posiflush 10 mL IV ×2 (19:28→20:28)
[2021-12-04 21:41] LABS: 24HR. Urine Creatinine 0.85 g/24 HR (0.70-1.90)
[2021-12-04 22:33] LABS: 24 Hour Urine Protein 222.7 mg/24HR (<150 MG/24HR); 24HR. UA Prot. Total Volume 1700 mL; Urine Protein (24 Hour) 13.1 mg/dL (<11.9)
[2021-12-04 23:07] LABS: Creat.Clear Total Volume 1700 mL; Creatinine Clearance 107 ml/min (100-200); Creatinine Serum Creat 0.6 mg/dL (0.6-1.0); Creatinine Urine 49.6 mg/dL (NO RANGE EST.); EST Glomerular Filtration Rate 147 mL/min (>60); Est Glom Filt Rate - Afr Amer 178 mL/min (>60)
[2021-12-05] MEDS: Acetaminophen/Butalbital/Caffe 1 Tablet 2 TABLET PO (00:01)
[2021-12-05 00:46] LABS: Absolute Lymphocyte Count 1.63 X10^3/uL (0.83-4.51); Absolute Neutrophil Count 10.4 X10^3/uL (2.0-7.7); Basophil# 0.02 X10^3/uL; Basophil% 0.2 % (0-1); Hematocrit 31.1 % (37-47); Hemoglobin 10.3 g/dL (12.0-15.0); Lymphocyte # 1.63 X10^3/ul (0.83-4.51); Lymphocyte % 12.9 % (19-41); Mean Corp Hgb Conc 33.1 g/dL (32-36); Mean Corpuscular Hgb 26.3 pg (27.0-32.0); Mean Corpuscular Volume 79.5 fL (81-99); Mean Platelet Vol. 9.6 fl (6.2-12.0); Monocyte# 0.36 X10^3/uL; Monocyte% 2.9 % (0-10); NRBC Flagged by Analyzer 0 % (0-5); Neutrophil # 10.41 X10^3/uL (2.7-7.7); Neutrophil % 82.3 % (47-70); Platelet Count 407 K/mm3 (150-450); RBC Distribution Width CV 14.7 % (11.6-14.6); RBC Distribution Width SD 42.7 fl (35.1-43.9); Red Blood Count 3.91 M/mm3 (4.2-5.4); White Blood Count 12.6 K/mm3 (4.4-11.0)
[2021-12-05 00:58] LABS: Fibrinogen 452 mg/dl (203-444)
[2021-12-05 01:04] LABS: ALB/GLOB Ratio 0.7 RATIO (0.9-2.4); AST(SGOT) 7 U/L (15-37); Alanine Aminotransfer ALT/SGPT 14 U/L (13-56); Albumin, Serum 2.7 g/dL (3.2-5.0); Alkaline Phosphatase 125 U/L (45-117); Anion Gap 6 (5-15); BUN 10 mg/dL (7-18); BUN/Creat Ratio 18.5 RATIO (10-20); Calcium,Total 8.7 mg/dL (8.5-10.1); Chloride 108 mmol/L (98-107); Creatinine, Serum 0.54 mg/dL (0.55-1.02); EST Glomerular Filtration Rate 150 mL/min (>60); Est Glom Filt Rate - Afr Amer 181 mL/min (>60); Estimated Creatinine Clearance 135.18 ml/min; Glucose 134 mg/dL (74-106); LDH 110 U/L (84-246); Lipase 49 U/L (73-393); Protein, Total 6.7 g/dL (6.4-8.2); Sodium Level 137 mmol/L (136-145); Uric Acid 3.9 mg/dL (2.6-6.0)
[2021-12-05 04:01] VITALS: BP 115/51; PULSE 86; TEMP 36.3; O2SAT 96
[2021-12-05 04:11] VITALS: BP 115/51; PULSE 88
[2021-12-05 04:12] VITALS: TEMP 36.3
[2021-12-05] MEDS: Lactated Ringers 1,000 ML 125 ML IV (04:14)
--- NOTE | 2021-12-05 07:00 | US_ITS ---
STUDY: ABDOMINAL ULTRASOUND - RIGHT UPPER QUADRANT REASON FOR VISIT: Female, 21 years old RUQ pain -- TUES AM PER RN, Please call in AM -- RUQ PAIN, INTERMITTENT, WORSE X 2 DAYS TECHNIQUE: Ultrasound evaluation of the right upper quadrant was performed with real-time and static flores-scale imaging. TECHNICAL QUALITY: Adequate. COMPARISON: None. FINDINGS: Liver: The liver measures 17 cm. There is normal echogenicity of the liver. The bile ducts are within normal limits. There is hepatic color flow. The direction of portal flow is hepatopetal. There is no demonstrated mass lesion. Gallbladder: Normal distended gallbladder. The gallbladder wall measures 2.8 mm. There is a negative sonographic Sánchez''s sign. There is no pericholecystic fluid. There are no gallstones. Common Bile Duct (C.B.D.): The common bile duct measures 2.0 mm. Pancreas: Normal size of the head, body and tail of the pancreas. There is normal echogenicity of the pancreas. There is no demonstrated pancreatic mass or cyst. Right Kidney: Normal size of the right kidney. The right kidney measures 10.9 cm x 4.7 cm x 4.4 cm. Normal renal cortex. The right cortex measures 1.3 cm. There is no demonstrated renal mass or cyst. There is no right hydronephrosis. US/Abdomen Limited IMPRESSION: Normal right upper quadrant ultrasound examination. Electronically Signed: Julian Henson MD at 8:31 EDT ,
--- NOTE | 2021-12-05 07:54 | PN.OBGYN_ITS ---
Subjective Subjective still having intermittent headache, lessened with medication, and intermittent visual changes. she had some dizziness and states she passed out in the bathroom but this was not witnessed by staff the patient was already back in bed by the time she reported the event. no vb lof good fm no regular ctx. Objective Data Objective Data Vital Signs: Vital Signs Temp Pulse BP Pulse Ox 97.3 F L 88 115/51 L 96 12/05/21 04:12 12/05/21 04:11 12/05/21 04:11 12/05/21 04:01 Weight: 210 lb 9.6 oz Body Mass Index (BMI) 37.3 Intake & Output: Intake and Output for Last 24 Hours 12/03/21 12/04/21 12/05/21 23:59 23:59 23:59 Intake Total 1240 / 1240 1100 / 1350 250 / 250 Output Total 1000 / 1000 450 / 450 Balance 240 / 240 650 / 900 250 / 250 Lab / Micro Data Result Diagrams: 12/05/21 00:25 12/05/21 00:25 Labs: Laboratory Results - last 24 hr 12/04/21 09:25: Sodium 137, Potassium 4.0, Chloride 107, Carbon Dioxide 23.0, Anion Gap 7, BUN 9, Creatinine 0.55, Estim Creat Clear Calc 132.72, Est GFR (MDRD) Af Amer 177, Est GFR (MDRD) Non-Af 146, BUN/Creatinine Ratio 16.3, Glucose 105, Calcium 9.2, Total Bilirubin 0.40, AST 8 L, ALT 13, Alkaline Phosphatase 137 H, Lactate Dehydrogenase 124, Total Protein 6.9, Albumin 2.7 L, Globulin 4.2, Albumin/Globulin Ratio 0.6 L, Lipase 44 L 12/04/21 09:25: WBC 17.8 H, RBC 4.13 L, Hgb 10.4 L, Hct 32.3 L, MCV 78.2 L, MCH 25.2 L, MCHC 32.2, RDW Std Deviation 40.7, RDW Coeff of Ed 14.5, Plt Count 364, MPV 8.6, Immature Gran % (Auto) 1.600 H, Neut % (Auto) 82.8 H, Lymph % (Auto) 11.1 L, [place] % (Auto) 4.3, Eos % (Auto) 0.0, Baso % (Auto) 0.2, Absolute Neuts (auto) 14.7 H, Absolute Lymphs (auto) 1.98, Nucleated RBC % 0 12/04/21 19:30: Ur Collection Duration 24.0, Urine Total Volume 1.70, Urine Creatinine 49.80, Ur Creatinine 24 Hour 0.85 12/04/21 19:30: Ur Total Protein 24 Hr Cancelled, Urine Total Protein Cancelled, Urine Albumin Cancelled, U [id number]-7-Ezsyoyqu Cancelled, U Bmunc-0-Bcaljxwf Cancelled, U Beta Globulin Cancelled, U Gamma Globulin Cancelled, U PEP M-Herve Cancelled, U PEP M-Herve 24 Hr Cancelled, Urine PEP Interpret Cancelled, Ur Immunofix PEP Note Cancelled 12/04/21 19:30: Creatinine 0.6, Est GFR (MDRD) Af Amer 178, Est GFR (MDRD) Non- Af 147, Urine Collection Time 24.0, Timed Urine Volume 1700, Urine Creatinine 49.6, Creatinine Clearance 107 12/04/21 19:30: Urine Collection Time 24.0, Timed Urine Volume 1700, Ur Total Protein 24 Hr 222.7 H, Urine Total Protein 13.1 H 12/05/21 00:25: WBC 12.6 H, RBC 3.91 L, Hgb 10.3 L, Hct 31.1 L, MCV 79.5 L, MCH 26.3 L, MCHC 33.1, RDW Std Deviation 42.7, RDW Coeff of Ed 14.7 H, Plt Count 407, MPV 9.6, Immature Gran % (Auto) 1.700 H, Neut % (Auto) 82.3 H, Lymph % (Auto) 12.9 L, [place] % (Auto) 2.9, Eos % (Auto) 0.0, Baso % (Auto) 0.2, Absolute Neuts (auto) 10.4 H, Absolute Lymphs (auto) 1.63, Nucleated RBC % 0 12/05/21 00:25: Sodium 137, Potassium 4.0, Chloride 108 H, Carbon Dioxide 23.0, Anion Gap 6, BUN 10, Creatinine 0.54 L, Estim Creat Clear Calc 135.18, Est GFR (MDRD) Af Amer 181, Est GFR (MDRD) Non-Af 150, BUN/Creatinine Ratio 18.5, Glucose 134 H, Uric Acid 3.9, Calcium 8.7, Total Bilirubin 0.20, AST 7 L, ALT 14, Alkaline Phosphatase 125 H, Lactate Dehydrogenase 110, Total Protein 6.7, Albumin 2.7 L, Globulin 4.0, Albumin/Globulin Ratio 0.7 L, Lipase 49 L 12/05/21 00:25: Fibrinogen 452 H Radiography Diagnostic Testing: Radiology Impression Brain CT 12/04/21 18:15 IMPRESSION: Normal unenhanced and enhanced CT scan of the brain. Electronically Signed: Marc García DO at 19:18 EDT Reading Location ID and State: [facility] / [place] Tel , Service support , Physical Exam Const alert, oriented x3 and no apparent distress HEENT Head and Scalp: normocephalic and atraumatic Eyes EOMs intact bilaterally Neck full ROM and no lymphadenopathy Chest inspection of chest normal Resp normal respiratory effort GI GI Narrative: gravid, abdomen nontender, AGA Neuro no focal motor deficits Motor Exam: clonus absent NST FHR Rate Baby A Baseline: 140 Variability:: Moderate Accelerations:: 15 x 15 Decelerations:: None NST Reactive:: Yes FHR Category:: Category I Uterine Activity:: no regular Assessment & Plan (1) : QUALIFIERS: Weeks of gestation: 32 weeks Qualified Code(s): Z3A.32 - 32 weeks gestation of COMMENT: genetics- low risk female and carrier neg. Aug afp screen. nl anatomy, growth US nl (2) Supervision of other normal : COMMENT: PRR SHANIQUA: 01/25/22 PC: Radhames Miguel Spouse: Pankaj (3) H/O iron deficiency anemia: COMMENT: h/o iron transfusions (4) Vaginal bleeding during : COMMENT: stable but intermittent. nl anatomy scan, nl placental location, repeat US and MFM consult agree with increased testing. Repeat US nl, recommend weekly visits and nsts while persistent. Abruption workup negative. twice weekly at 32 (5) Lab test positive for detection of COVID-19 virus: COMMENT: 81mg asa daily and 32 & 36 wk growth US (6) Visual changes: COMMENT: see a/p of RODRIGES. plan optho cs, neg CT of head, and nl serial labs. serial bps with STO. (7) Headache in : COMMENT: nl bps, serial preeclampsia labs. fioricet/tylenol given. 24 hour urine WNL. bmz x 2 given. discussed with MFM, ct head ordered due to visual changes and nl. plan optho consult as OP and plan twice weekly testing as OP with twice weekly NSTs, twice weekly labs, home bp monitoring. optum consult. (8) Prematurity of fetus: COMMENT: BMZ 12/03 and 12/04 (9) RUQ pain: COMMENT: ruq ultrasound ordered. labs WNL- lipase cmp and fibrinogen. PLAN: normal imaging, dc home and will get opthomalogy consult at 3:30 Charges/Coding Multi Select Codes Visit Charges Observation E&M Codin Observation care discharge Urinary/Genital Urinary/Genital CPT Codes: 33783-45 non-stress test Interp
--- NOTE | 2021-12-05 08:09 | DS.PCM_ITS ---
Providers Primary Care Physician: No Primary Care Phys Reason For Visit: RULE OUT PRE ECLAMPSIA Diagnosis Discharge Diagnosis (1) : Status: Acute Code(s): Z34.90 - Encounter for supervision of normal , unspecified, unspecified trimester Qualifiers: Weeks of gestation: 32 weeks Qualified Code(s): Z3A.32 - 32 weeks gestation of (2) Supervision of other normal : Status: Acute Code(s): Z34.80 - Encounter for supervision of other normal , unspecified trimester (3) H/O iron deficiency anemia: Status: Acute Code(s): Z86.2 - Personal history of diseases of the blood and blood-forming organs and certain disorders involving the immune mechanism (4) Vaginal bleeding during : Status: Acute Code(s): O46.90 - Antepartum hemorrhage, unspecified, unspecified trimester (5) Lab test positive for detection of COVID-19 virus: Status: Acute Code(s): U07.1 - COVID-19 (6) Visual changes: Status: Acute Code(s): H53.9 - Unspecified visual disturbance (7) Headache in : Status: Acute Code(s): O26.899 - Other specified related conditions, unspecified trimester; R51.9 - Headache, unspecified (8) Prematurity of fetus: Status: Acute Code(s): P07.30 - , unspecified weeks of gestation (9) RUQ pain: Status: Acute Code(s): R10.11 - Right upper quadrant pain Medications at Discharge Home Medications docosahexaenoic acid 200 mg capsule 1 mg PO DAILY 06/12/21 fexofenadine [Letitia Allergy] 60 mg PO DAILY 11/28/21 ferrous sulfate [Iron (ferrous sulfate)] 325 mg PO DAILY 12/03/21 Hospital Course Operations None Summary of Care Provided Minutes Spent on Discharge: 25 Hospital Course: Patient presented initially with intermittent headache and visual changes. She stated that she had elevated blood pressures at home with her home blood pressure cuff and upon admission all blood pressures were within normal limits. Initial preeclampsia lab evaluation was within normal limits and she was negative for proteinuria. Due to patient's neurologic symptoms she was admitted and monitored and started on a 24-hour urine collection. Serial laboratory evaluation was performed and all found to be within normal limits. 24-hour urine was within normal limits. Patient had an episode of syncope that was unwitnessed by staff but self-reported in the bathroom that she woke up on the floor and monitoring was performed afterwards and vital signs taken and were all within normal limits and status was reassuring. CT the head was negative and right upper quadrant ultrasound was negative. Betamethasone was given on the and for prematurity and the case was discussed with maternal- medicine on the phone who has been also following and assisting with her care. It was recommended to discharge to home due to the neurologic symptoms not appearing to be due to preeclampsia and the patient needing an ophthalmology consult due to normal intracranial imaging and needing to confirm no ocular pathology since preeclampsia was ruled out. [facility] is being consulted for outpatient monitoring for preeclampsia screening, will plan twice weekly testing with labs and evaluation as well as NSTs in the office. Patient being discharged and will be seen by ophthalmology at 3:30 in the afternoon. Weight / BMI Weight Weight: 210 lb 9.6 oz Body Mass Index (BMI) 37.3 ABG / Lab / Microbiology Data Result Diagrams: 12/05/21 00:25 12/05/21 00:25 Laboratory: Laboratory Results - last 24 hr 12/04/21 09:25: Sodium 137, Potassium 4.0, Chloride 107, Carbon Dioxide 23.0, Anion Gap 7, BUN 9, Creatinine 0.55, Estim Creat Clear Calc 132.72, Est GFR (MDRD) Af Amer 177, Est GFR (MDRD) Non-Af 146, BUN/Creatinine Ratio 16.3, Glucose 105, Calcium 9.2, Total Bilirubin 0.40, AST 8 L, ALT 13, Alkaline Phosphatase 137 H, Lactate Dehydrogenase 124, Total Protein 6.9, Albumin 2.7 L, Globulin 4.2, Albumin/Globulin Ratio 0.6 L, Lipase 44 L 12/04/21 09:25: WBC 17.8 H, RBC 4.13 L, Hgb 10.4 L, Hct 32.3 L, MCV 78.2 L, MCH 25.2 L, MCHC 32.2, RDW Std Deviation 40.7, RDW Coeff of Ed 14.5, Plt Count 364, MPV 8.6, Immature Gran % (Auto) 1.600 H, Neut % (Auto) 82.8 H, Lymph % (Auto) 11.1 L, Dane % (Auto) 4.3, Eos % (Auto) 0.0, Baso % (Auto) 0.2, Absolute Neuts (auto) 14.7 H, Absolute Lymphs (auto) 1.98, Nucleated RBC % 0 12/04/21 19:30: Ur Collection Duration 24.0, Urine Total Volume 1.70, Urine Creatinine 49.80, Ur Creatinine 24 Hour 0.85 12/04/21 19:30: Ur Total Protein 24 Hr Cancelled, Urine Total Protein Cancelled, Urine Albumin Cancelled, U [id number]-[id number] Cancelled, U Kxuop-5-Qqcbyule Cancelled, U Beta Globulin Cancelled, U Gamma Globulin Cancelled, U PEP M-Herve Cancelled, U PEP M-Herve 24 Hr Cancelled, Urine PEP Interpret Cancelled, Ur Immunofix PEP Note Cancelled 12/04/21 19:30: Creatinine 0.6, Est GFR (MDRD) Af Amer 178, Est GFR (MDRD) Non- Af 147, Urine Collection Time 24.0, Timed Urine Volume 1700, Urine Creatinine 49.6, Creatinine Clearance 107 12/04/21 19:30: Urine Collection Time 24.0, Timed Urine Volume 1700, Ur Total Protein 24 Hr 222.7 H, Urine Total Protein 13.1 H 12/05/21 00:25: WBC 12.6 H, RBC 3.91 L, Hgb 10.3 L, Hct 31.1 L, MCV 79.5 L, MCH 26.3 L, MCHC 33.1, RDW Std Deviation 42.7, RDW Coeff of Ed 14.7 H, Plt Count 407, MPV 9.6, Immature Gran % (Auto) 1.700 H, Neut % (Auto) 82.3 H, Lymph % (Auto) 12.9 L, Dane % (Auto) 2.9, Eos % (Auto) 0.0, Baso % (Auto) 0.2, Absolute Neuts (auto) 10.4 H, Absolute Lymphs (auto) 1.63, Nucleated RBC % 0 12/05/21 00:25: Sodium 137, Potassium 4.0, Chloride 108 H, Carbon Dioxide 23.0, Anion Gap 6, BUN 10, Creatinine 0.54 L, Estim Creat Clear Calc 135.18, Est GFR (MDRD) Af Amer 181, Est GFR (MDRD) Non-Af 150, BUN/Creatinine Ratio 18.5, Glucose 134 H, Uric Acid 3.9, Calcium 8.7, Total Bilirubin 0.20, AST 7 L, ALT 14, Alkaline Phosphatase 125 H, Lactate Dehydrogenase 110, Total Protein 6.7, Albumin 2.7 L, Globulin 4.0, Albumin/Globulin Ratio 0.7 L, Lipase 49 L 12/05/21 00:25: Fibrinogen 452 H Radiography Diagnostic Testing: Radiology Impression Brain CT 12/04/21 18:15 IMPRESSION: Normal unenhanced and enhanced CT scan of the brain. Electronically Signed: Marc García DO at 19:18 EDT , Meaningful Use Info Meaningful Use Diagnoses (Choose all that apply): None applicable Discharge Plan Admission Reason For Visit: RULE OUT PRE ECLAMPSIA Attending Provider: Светлана Aparicio Primary Care Provider: Care Physician,No Primary Discharge Date/Time: 12/05/21 12:30 Instructions Patient Instructions: Kick Counts, ED False Labor, OB Triage: Return to Hospital or Notify Physician if you Experience: Additional Instructions / Restrictions: Keep office appointment December 07 Discharge Orders/Prescriptions Prescriptions: No Action DHA 200 mg capsule 1 mg PO DAILY RF: 0 fexofenadine [Letitia Allergy] 60 mg Tablet 60 mg PO DAILY RF: 0 ferrous sulfate [Iron (ferrous sulfate)] 325 mg (65 mg iron) Tablet 325 mg PO DAILY RF: 0 Referrals / Follow Up: Care Physician,No Primary [Primary Care Provider] - Disposition Patient Disposition: Home, Self Care
[2021-12-05 08:20] VITALS: BP 114/53; PULSE 88; PULSE 94; O2SAT 97
[2021-12-05 08:23] VITALS: BP 114/53; PULSE 94; TEMP 36.6; O2SAT 97
--- NOTE | 2021-12-05 10:57 | US_ITS ---
STUDY: SECOND AND THIRD TRIMESTER OBSTETRICAL ULTRASOUND - LIMITED REASON FOR EXAM: Female, 21 years old growth scan needed for possible pre-e 34 weeks LMP: 04/20/2021. PRIOR ULTRASOUND: Comparison is made with prior study dated 11/03/2021. TECHNIQUE: Transabdominal TECHNICAL QUALITY: Adequate. FINDINGS: There is a single intrauterine fetus. The fetus is in a cephalic presentation. There is demonstrated cardiac activity with a heart rate of 154 bpm. There is a normal amniotic fluid volume. The largest amniotic fluid pocket measures 3.7 cm. The amniotic fluid index (RAFITA) is 12.9 cm. The placenta is anterior in location and is not low lying. There are Grade 1 placental changes. The cervix measures 3.8 cm in length. BIOMETRY: BPD: 7.95 cm: 31 weeks, 6 days HC: 29.06 cm: 32 weeks, 0 days AC: 28.38 cm: 32 weeks, 2 days FL: 6.33 cm: 32 weeks, 5 days Age by LMP: 32 weeks, 5 days. SHANIQUA by LMP: 01/25/2022. age by prior US: 31 weeks, 5 days. SHANIQUA by prior US: 02/01/2022. age by current US: 32 weeks, 0 days. SHANIQUA by current US: 01/30/2022. Estimated weight: 1994 grams, +/- 299 grams, 35 percentile. US/OB Limited With Biometrics IMPRESSION: Single live intrauterine gestation with a mean gestational age of 31 weeks and 5 days. The measurements obtained today fall within the normal expected range. Electronically Signed: Julian Henson MD at 13:43 EDT ,
[2021-12-05 11:33] VITALS: BP 108/66; PULSE 93; TEMP 36.5
== END 2021-12-05 12:30 | disposition home or self-care (01) ==
LOC: WPOUT 15:41 → WP 15:41
PROVIDERS: Obstetrics & Gynecology; Referring Provider Obstetrics & Gynecology; Visit Provider Obstetrics & Gynecology
DX: O26.893 Other specified pregnancy related conditions, third trimester (principal); R55 Syncope and collapse; Z3A.32 32 weeks gestation of pregnancy; R10.13 Epigastric pain; R10.11 Right upper quadrant pain; O46.93 Antepartum hemorrhage, unspecified, third trimester; O99.013 Anemia complicating pregnancy, third trimester; D50.9 Iron deficiency anemia, unspecified; Z86.16 Personal history of COVID-19; Z79.899 Other long term (current) drug therapy
CPT/HCPCS: 84166; 36415; 59025; 59050; 70470; 76705; 76816; 76819; 80053; 81050; 82565; 82570; 82575; 83615; 83690; 84156; 84450; 84460; 84550; 85025; 85027; 85384; 96372; 99218; J7120; G0378; J0702

== ENCOUNTER 2021-12-07 12:01 | Outpatient (CLI) | payer MEDICAID, SELFPAY ==
[2021-12-07 14:26] LABS: Absolute Lymphocyte Count 3.22 X10^3/uL (0.83-4.51); Absolute Neutrophil Count 8.6 X10^3/uL (2.0-7.7); Basophil# 0.05 X10^3/uL; Basophil% 0.4 % (0-1); Eosinophil# 0.05 X10^3/uL; Eosinophils% 0.4 % (0-5); Hematocrit 32.1 % (37-47); Hemoglobin 9.9 g/dL (12.0-15.0); Lymphocyte # 3.22 X10^3/ul (0.83-4.51); Lymphocyte % 24.5 % (19-41); Mean Corp Hgb Conc 30.8 g/dL (32-36); Mean Corpuscular Hgb 24.6 pg (27.0-32.0); Mean Corpuscular Volume 79.9 fL (81-99); Mean Platelet Vol. 9.1 fl (6.2-12.0); Monocyte# 1.09 X10^3/uL; Monocyte% 8.3 % (0-10); NRBC Flagged by Analyzer 0 % (0-5); Neutrophil % 65.3 % (47-70); Platelet Count 367 K/mm3 (150-450); RBC Distribution Width CV 14.7 % (11.6-14.6); RBC Distribution Width SD 43.2 fl (35.1-43.9); Red Blood Count 4.02 M/mm3 (4.2-5.4); White Blood Count 13.2 K/mm3 (4.4-11.0)
[2021-12-07 14:38] LABS: Protein, Urine (Random) 12.1 mg/dL (<11.9); Protein:Creat Ratio 295 mg/g CRE (0-200)
[2021-12-07 14:59] LABS: ALB/GLOB Ratio 0.6 RATIO (0.9-2.4); AST(SGOT) 9 U/L (15-37); Alanine Aminotransfer ALT/SGPT 18 U/L (13-56); Albumin, Serum 2.7 g/dL (3.2-5.0); Alkaline Phosphatase 126 U/L (45-117); Anion Gap 6 (5-15); BUN 7 mg/dL (7-18); BUN/Creat Ratio 13.2 RATIO (10-20); Calcium,Total 8.4 mg/dL (8.5-10.1); Chloride 106 mmol/L (98-107); Creatinine, Serum 0.53 mg/dL (0.55-1.02); EST Glomerular Filtration Rate 153 mL/min (>60); Est Glom Filt Rate - Afr Amer 186 mL/min (>60); Globulin 4.2 g/dL (2.2-4.2); Glucose 65 mg/dL (74-106); Potassium 3.6 mmol/L (3.5-5.1); Protein, Total 6.9 g/dL (6.4-8.2); Sodium Level 138 mmol/L (136-145)
== END 2021-12-07 23:59 | disposition home or self-care (01) ==
LOC: LAB 12:03
PROVIDERS: Referring Provider Obstetrics & Gynecology; Visit Provider Obstetrics & Gynecology
DX: O16.9 Unspecified maternal hypertension, unspecified trimester (principal)
CPT/HCPCS: 36415; 80053; 82570; 84156; 85025

== ENCOUNTER 2021-12-09 13:55 | Outpatient (CLI) | payer MEDICAID, SELFPAY ==
[2021-12-09] VITALS (17 sets, daily range): BP systolic 114–128; BP diastolic 56–65; PULSE 93–215; TEMP 36.9; O2SAT 97–98; BMI 37.4
[2021-12-09 14:23] LABS: Hematocrit 33.2 % (37-47); Hemoglobin 10.4 g/dL (12.0-15.0); Mean Corp Hgb Conc 31.3 g/dL (32-36); Mean Corpuscular Hgb 24.7 pg (27.0-32.0); Mean Corpuscular Volume 78.9 fL (81-99); Mean Platelet Vol. 8.7 fl (6.2-12.0); Platelet Count 403 K/mm3 (150-450); RBC Distribution Width CV 14.8 % (11.6-14.6); RBC Distribution Width SD 42.5 fl (35.1-43.9); Red Blood Count 4.21 M/mm3 (4.2-5.4); White Blood Count 15.5 K/mm3 (4.4-11.0)
[2021-12-09 14:37] LABS: AST(SGOT) 5 U/L (15-37); Alanine Aminotransfer ALT/SGPT 15 U/L (13-56); Creatinine, Serum 0.69 mg/dL (0.55-1.02); EST Glomerular Filtration Rate 114 mL/min (>60); Est Glom Filt Rate - Afr Amer 138 mL/min (>60); Estimated Creatinine Clearance 105.79 ml/min; Uric Acid 3.6 mg/dL (2.6-6.0)
[2021-12-09 14:38] LABS: Protein:Creat Ratio 173 mg/g CRE (0-200)
[2021-12-09] MEDS: Lactated Ringers 1,000 ML 999 ML IV (15:05)
[2021-12-09] MEDS: Acetaminophen/Butalbital/Caffe 1 Tablet 2 TABLET PO (15:19)
[2021-12-09] MEDS: 0.9% Saline Lock 10 ML Syringe IV (16:06)
--- NOTE | 2021-12-09 23:31 | OB.TRI.PN ---
Progress Notes Date of Service: 12/09/21 Progress Note: Patient presents for triage evaluation secondary to syncope FHT: 150- 160 Moderate variability reactive no decelerations category I tracing [place]: no regular Contractions Assessment and plan: nl preeclampsia panel, initially tachycardia- suspect dehydration as cause of symptoms, given fluids and then had resolution. Reactive NST, reassuring maternal and status patient discharged to home to follow-up as scheduled in office. See problem list details for additional plan information. Laboratory Studies: Laboratory Tests 12/09/21 12/09/21 12/09/21 Range/Units 14:15 14:15 14:15 WBC 15.5 H (4.4-11.0) K/mm3 RBC 4.21 (4.2-5.4) M/mm3 Hgb 10.4 L (12.0-15.0) g/dL Hct 33.2 L (37-47) % MCV 78.9 L (81-99) fL MCH 24.7 L (27.0-32.0) pg MCHC 31.3 L (32-36) g/dL RDW Std Deviation 42.5 (35.1-43.9) fl RDW Coeff of Ed 14.8 H (11.6-14.6) % Plt Count 403 (150-450) K/mm3 MPV 8.7 (6.2-12.0) fl Creatinine 0.69 (0.55-1.02) mg/dL Estim Creat Clear Calc 105.79 ml/min Est GFR (MDRD) Af Amer 138 (>60) mL/min Est GFR (MDRD) Non-Af 114 (>60) mL/min Uric Acid 3.6 (2.6-6.0) mg/dL AST 5 L (15-37) U/L ALT 15 (13-56) U/L U Random Total Protein 39.0 H (<11.9) mg/dL Urine Creatinine 226.00 (NO RANGE EST.) mg/dL Protein/Creatinin Ratio 173 (0-200) mg/g CRE Charges/Coding Procedures Urinary/Genital [id number]: [id number] non-stress test Interp
== END 2021-12-09 23:59 | disposition home or self-care (01) ==
LOC: WPOUT 14:10 → WP 14:10
PROVIDERS: Visit Provider Obstetrics & Gynecology
DX: O9A.219 Injury, poisoning and certain other consequences of external causes complicating pregnancy, unspecified trimester (principal); R55 Syncope and collapse
CPT/HCPCS: 36415; 59025; 59050; 82565; 82570; 84156; 84450; 84460; 84550; 85027; 99218; J7120; A4216; G0378

== ENCOUNTER 2021-12-14 15:15 | Outpatient (CLI) | payer MEDICAID, SELFPAY ==
[2021-12-14] VITALS (10 sets, daily range): BP systolic 117–139; BP diastolic 56–79; PULSE 89–110; TEMP 36.4; O2SAT 98; BMI 37.8
[2021-12-14] MEDS: 0.9% Saline Lock 10 ML Syringe IV (16:00)
--- NOTE | 2021-12-14 16:11 | HP.PCM.OB_ITS ---
HPI - General HPI Narrative JENNIE HAGAN, is a 21 y/o @ 34 weeks who presents to L&D with headaches, visual changes and complaints of passing out. her home optum nurse reported a blood pressure of 150/100. Here on L&D her pressures are normal, however she had one beat of clonus on exam per nursing. The patient also complains of some intermittent epigastric pain. Last week when she was observed on L&D, Dr. Cohen spoke with [facility] in [place] who gave recommendations to deliver her if her blood pressures started to rise. Her 24 hr urine last week was normal (below 300) and today pr:cr is 200, all labs are normal, and blood pressures on l&D are normal. Maternal Data Information SHANIQUA Calculator Estimated Delivery Date Method Current WG Current Estimate 01/25/22 LMP (Certain) 34w 1d PFSH PFSH Medical History H/O iron deficiency anemia Lab test positive for detection of COVID-19 virus Home Medications docosahexaenoic acid 200 mg capsule 1 mg PO DAILY 06/12/21 [History Last Taken 12/13/21] fexofenadine [Letitia Allergy] 60 mg PO DAILY 11/28/21 [History Last Taken 12/13/21] ferrous sulfate [Iron (ferrous sulfate)] 325 mg PO DAILY 12/03/21 [History Last Taken 12/14/21 09:30] promethazine 12.5 mg tablet 12.5 mg PO Q6H PRN #60 tab 12/12/21 [Rx Last Taken 12/13/21] prenat.vits,abdulaziz,yrt-vdjx-jifeq [ Vitamin] 1 tab PO DAILY 12/14/21 [History Last Taken 12/14/21 09:30] Allergy/AdvReac Type Severity Reaction Status Date / Time tree and shrub pollen Allergy Mild Other Verified 12/09/21 14:17 Family History Mother Hypertension Father Cancer throat- smoker Grandfather Diabetes Myocardial infarction Grandmother Diabetes Aunt Diabetes Social History household members: family number of children: 2 Smoking Status: Never smoker alcohol intake: never substance use type: does not use caffeine: Yes what type of physical activity do you participate in: none seatbelt use: always do you feel safe at home: Yes additional social history: Luis- works at [employer] Patient babysits History 3 Elective abortions Hx Para 2 Spontaneous abortions Hx # Term Pregnancies Ectopic pregnancies Hx # Pregnancies Multiple births # of living children 2 Past Pregnancies Del. Date Name GA/Weeks Outcome Route Bth Weight Gen Labor Lgth Anesthesia Del Locatn Provider FOB 03/25/19 Luisa 40 live - full term 8lbs 7oz Female epidural [facility] 09/29/20 Radhames 39 live - full term 8lbs 2oz Male e pidural [facility] Delivery Date: 03/25/19 No complications Penny Marcos Delivery Date: 09/29/20 + Covid @ time of delivery; GHTN; mild shoulder dystocia; 2nd degree laceration; nuchal cord x1 tight Deyanira Alba Visit Details Expected Delivery Route/Plan Labor Preference CB/BF classes: [] labor support person: [] labor intervention preferences: minimal intervention desired, wants to use nitrous only. Epidural hurt her back last time. pain management options preferred: nitrous cut cord/dad catch: [] : [] PP control planned: [] discussed possible routes of delivery and associated risks: [] special requests: [] Plans Covid status:counseled regarding risk of covid in vs vaccination and declined vaccination Flu vaccine: completed during Tdap vaccine: [] Rhogam: [] LARC form signed: [] Problem list reviewed and updated with the most current plan of care details and appropriate orders placed. Relevant counseling for the gestational age provided. Continue routine care and follow up unless otherwise noted in visit notes/problem list details OB Flowsheet Initial Weight: 206 lb Date -?-?-?-?-?-?-?-?-?-?-?-?- EGA Weight BP Urine Prot -?-?-?-?-?-?-?-?-?-?-?-?- Glucose FHR FuHt Pres Dilation -?-?-?-?-?-?-?-?-?-?-?-?- Effaced St Visit Note 07/10/21 -?-?-?-?-?-?-?-?-?-?-?-?- 11w 4d 206 lb (+0 oz) 132/80 -?-?-?-?-?-?-?-?-?-?-?--?- 189 -?-?-?-?-?-?-?-?-?-?-?-?- SM- CRL 3.75cm c ons with LMP 08/08/21 -?-?-?-?-?-?-?-?-?-?-?-?- 15w 5d 204 lb 8 oz (-1 lb 8 oz) 120/60 Negative -?-?-?-?-?-?-?-?-?-?-?-?- Negative 161 -?-?-?-?-?-?-?-?-?-?-?-?- JV- pt still ble eding from small subchorionic hemorrhage. pt reassured today, bleeding precautions given. rto in 2 weeks for reassurance and sooner if bleeding becomes heavy. JV- pt still bleeding from s mall subchorionic hemorrhage. pt reassured today with bedside us. bleeding precautions given. rto in 2 weeks for reassurance and sooner if bleeding becomes heavy. 08/25/21 -?-?-?-?-?-?-?-?-?-?-?-?- 18w 1d 205 lb (-16 oz) 130/80 Negative -?-?-?-?-?-?-?-?-?-?-?-?- Negative -?-?-?-?-?-?-?-?-?-?-?-?- 09/20/21 -?-?-?-?-?-?-?-?-?-?-?-?- 21w 6d 203 lb (-3 lb) 112/66 Negative -?-?-?-?-?-?-?-?-?-?-?-?- Negative -?-?-?-?-?-?-?-?-?-?-?-?- SM- has had some intermittent bleeding. no lof no regualr ctx 10/25/21 -?-?-?-?-?-?-?-?-?-?-?-?- 26w 6d 205 lb (-16 oz) 100/70 Negative -?-?-?-?-?-?-?-?-?-?-?-?- Negative 158 27 -?-?-?-?-?-?-?-?-?-?-?-?- JV- no lof, or d ec fm. still have some spotting. does not feel comfortable with baby asa due to bleeding. had covid and flu in . She is very concerned about the end of her and would like a 39 week IOL planned if possible so that her can be present. She wants SM if possible. 11/03/21 -?-?-?-?-?-?-?-?-?-?-?-?- 28w 1d 206 lb (+0 oz) 132/72 -?-?-?-?-?-?-?-?-?-?-?-?- 140 28 -?-?-?-?-?-?-?-?-?-?-?-?- SM- still having intermittent spotting. get US today. no regualr ctx. no pelvic pressure. good fm. no lof. SM- still having intermitten t spotting. get US today. no regualr ctx. no pelvic pressure. good fm. no lof. to l and d for steroids and mornitoring, eval 11/10/21 -?-?-?-?-?-?-?-?-?-?-?-?- 29w 1d 204 lb (-2 lb) 120/70 Negative -?-?-?-?-?-?-?-?-?-?-?-?- Negative 160 29 Cephalic 0 -?-?-?-?-?-?-?-?-?-?-?-?- JV- no lof but i s complaining of cramping and continued on and off bleeding. NST is reactive for gestational age. on pelvic exam the cervix is erythematous and there is a scant amount of discharge that may be only physiologic. red top tube collected. cx is closed visually. No signs of bleeding present. no cervical ectropion present. pt asking for note to be off work the remainder of and is seeing [facility] on saturday. I have asked her to come to the office when and if she bleeds again so that we may see where the blood is coming from. ultrasound shows anterior non-low lying placenta. 11/16/21 -?-?-?-?-?-?-?-?-?-?-?-?- 30w 0d 208 lb 4 oz (+2 lb 4 oz) 132/60 Negative -?-?-?-?-?-?-?-?-?-?-?-?- Negative 150 30 Cephalic 0 -?-?-?-?-?-?-?-?-?-?-?-?- JV- no blood aga in on exam. no signs of external hemorrhoids. there is a prominent varicosity on the right outer labia. Pt was given options for admission in hospital for remainder of by [facility] and declined. She will try a light tampon in the lower aspect of the vagina and if sees blood next time she goes to the bathroom she is to remove the tampon. if there is blood on the tampon she will need admission for remainder of to [facility] in [place]. 11/22/21 -?-?-?-?-?-?-?-?-?-?-?-?- 30w 6d 209 lb (+3 lb) 130/70 Negative -?-?-?-?-?-?-?-?-?-?-?-?- Negative 150 -?-?-?-?-?-?-?-?-?-?-?-?- JV- pt states th at she is confident that the blood is coming from the vein on the outer labia however with the tampon trick, she noticed some brown discharge at the tip of the tampon. Will need ton continue nsts due to this. pt still declines admit. 12/01/21 -?-?-?-?-?-?-?-?-?-?-?-?- 32w 1d 5 lb 3 oz (-200 lb 13 oz) 210 lb (+4 lb) 130/82 Negative -?-?-?-?-?-?-?-?-?-?-?-?- Negative 140 32 Cephalic 0 -?-?-?-?-?-?-?-?-?-?-?-?- SM- had some bro wn discharge, no activ ebleeding, no reuglar ctx good fm some pressure 12/03/21 -?-?-?-?-?-?-?-?-?-?-?-?- 32w 5d 210 lb 9.6 oz (+4 lb 9.6 oz) 140/82 130/75 133/67 141/80 142/79 133/71 131/76 126/79 126/64 132/72 125/68 134/72 126/75 128/63 109/53 110/51 126/63 132/62 118/57 121/69 131/63 148/66 128/56 127/74 117/58 115/51 115/51 114/53 114/53 108/66 -?-?-?-?-?-?-?-?-?-?-?-?- -?-?-?-?-?-?-?-?-?-?-?-?- 12/07/21 -?-?-?-?-?-?-?-?-?-?-?-?- 33w 0d 214 lb (+8 lb) 138/78 Negative -?-?-?-?-?-?-?-?-?-?-?-?- Negative 140 -?-?-?-?-?-?-?-?-?-?-?-?- Sm- light pink t ues night/, no activ bleeding no regular ctx, still dizzy no syncope. intermittent visual changes. optho cs WNL. will check labs today. 12/12/21 -?-?-?-?-?-?-?-?-?-?-?-?- 33w 5d 213 lb (+7 lb) 112/74 Negative -?-?-?-?-?-?-?-?-?-?-?-?- Negative -?-?-?-?-?-?-?-?-?-?-?-?- MH-NST only reac tive. Headache persists. Recent normal labs. Will discuss with JOSH 12/14/21 -?-?-?-?-?-?-?-?-?-?-?-?- 34w 0d 213 lb 13.574 oz (+7 lb 13.574 oz) 136/69 123/56 139/74 136/76 126/76 124/78 120/64 117/64 134/79 -?-?-?-?-?-?-?-?-?-?-?-?- -?-?-?-?-?-?-?-?-?-?-?-?- 12/15/21 -?-?-?-?-?-?-?-?-?-?-?-?- 34w 1d 212 lb (+6 lb) 106/69 Negative -?-?-?-?-?-?-?-?-?-?-?-?- Negative 150 -?-?-?-?-?-?-?-?-?-?-?-?- SM- no vb lof so me fm no regular ctx. seen on l and d yesterday for elevated bps at home, all bps WNL and labs WNL, recommended to be admitted overnight and patient left AMA. evaluated today and reactive NST, isolated 10 mild variable, will get RAFITA today. NST FHR Rate Baby A Baseline: 150 Variability:: Moderate Accelerations:: 15 x 15 Decelerations:: None NST Reactive:: Yes FHR Category:: Category I ROS Constitutional Constitutional: Denies change in weight, fatigue, fever(s), headache(s), poor appetite or weakness Eyes Eyes: Denies blurry vision, change in vision, seeing flashes or spots in vision ENT HEENT: Denies dizziness, headache(s), loss taste/smell or sore throat Cardiovascular Cardiovascular: Denies chest pain, dizziness, dyspnea, irregular heart rhythm, leg edema, palpitations, rapid heart rate or vomiting Respiratory/Chest Respiratory/Chest: Denies chest tightness, cough, dyspnea or breast pain Gastrointestinal Gastrointestinal: Denies abdominal pain, anorexia, constipation, cramping, diarrhea, hemorrhoids, vomiting or weight changes Genitourinary Genitourinary: Denies dysuria, flank pain, genital lesions, genital pain, urinary frequency or urinary urgency Musculoskeletal Musculoskeletal: Denies back pain, difficulty walking, joint pain, limited range of motion, muscle cramps or numbness Integumentary Integumentary: Denies lesions or unusual bruising Neurologic Neurologic: Denies abnormal movements, abnormal speech, dizziness, numbness, seizure-like activity or syncope Psychiatric Psychiatric: Denies anxiety, behavioral changes, change in appetite, change in libido, cognitive impairment, confusion, depression, difficulty concentrating, hallucinations or suicidal thoughts Endocrine Endocrinology: Denies excessive sweating, polydipsia or polyuria Hematologic/Lymphatic Hematologic/Lymphatic: Denies easy bleeding, easy bruising or lymphadenopathy Allergic/Immunologic Allergic/Immunologic: Denies itchy eyes, lip swelling, seasonal rhinorrhea, rhinitis, throat swelling, tongue swelling, eczemia, wheezing or asthma Vital Signs Vital Signs Vital Signs: 12/14/21 15:34 12/14/21 15:46 12/14/21 15:56 Pulse Rate 95 97 109 H Blood Pressure 136/69 H 123/56 H 139/74 H BP Systolic 136 123 139 BP Diastolic 69 56 74 12/14/21 16:06 Pulse Rate 102 H Blood Pressure 136/76 H BP Systolic 136 BP Diastolic 76 Weight Weight: 213 lb 13.574 oz Body Mass Index (BMI) 37.8 Physical Exam Const alert, oriented x3, no apparent distress and healthy appearing General Appearance: cooperative; Negative for anxious HEENT normocephalic Face and Sinus: normal facial exam Eyes EOMs intact bilaterally and no scleral icterus General Eye: normal appearance of both eyes Neck full ROM and supple Lymph Lymphatic: no lymphadenopathy noted Chest Chest: abnormal inspection of the chest Resp normal respiratory effort Effort and Inspection: able to speak in complete sentences Cardio regular rate GI soft to palpation and non-tender Inspection: gravid Palpation: soft; Negative for tender external exam normal Amniotic Fluid: ROM+plus Back/Spine no CVA tenderness Extremity normal to inspection, full ROM and no clubbing, cyanosis or edema General Extremity: Negative for calf tenderness or edema Skin Lesions: no lesions Rashes: no rashes Psych mental status grossly normal Labs Labs Labs: Blood Type O POSITIVE Antibody Screen NEGATIVE Hct 30.7 % (37-47) L Hgb 9.7 g/dL (12.0-15.0) L Obstetrics US Syphilis Total Ab Non-reactive Rubella IgG Antibody Reactive (Nonreactive) Hep Bs Antigen Non-Reactive (Nonreactive) Chlamydia DNA (RAJ) Negative (Negative) Neisseria gonorrhoeae DNA (RAJ) Negative (Negative) HIV 1&2 Antibody Non-Reactive (Nonreactive) Glucose 1 Hr 50 gm 117 mg/dL (70-140) Rhogam given: No Assessment & Plan (1) Prematurity of fetus: COMMENT: BMZ 12/03 and 12/04 (2) Headache in : QUALIFIERS: Trimester: third trimester Qualified Code(s): O26.893 - Other specified related conditions, third trimester; R51.9 - Headache, unspecified COMMENT: nl bps and nl pree labs. plan twice weekly testing as OP with twice weekly NSTs, twice weekly labs, home bp monitoring. optum consult. discussed with MFM. (3) Visual changes: COMMENT: see a/p of RODRIGES. nl optho cs, neg CT of head, and nl serial labs. s/p serial bps with STO. (4) Lab test positive for detection of COVID-19 virus: COMMENT: 81mg asa daily and 32 & 36 wk growth US (5) Vaginal bleeding during : COMMENT: stable but intermittent. nl anatomy scan, nl placental location, repeat US and MFM consult agree with increased testing. Repeat US nl, recommend weekly visits and nsts while persistent. Abruption workup negative. twice weekly at 32 (6) H/O iron deficiency anemia: COMMENT: h/o iron transfusions (7) Supervision of other normal : COMMENT: PRR SHANIQUA: 01/25/22 PC: Radhames Miguel Spouse: Pankaj (8) : QUALIFIERS: Weeks of gestation: 33 weeks Qualified Code(s): Z3A.33 - 33 weeks gestation of COMMENT: genetics- low risk female and carrier neg. Aug afp screen. nl anatomy, growth US nl PLAN: per MFM, Dr. West: 1. Regarding the possibility of pre-eclampsia, due to lack of evidence of elevated lft's normal liver us, normal urine pro:cr, normal blood pressures, This appears to be, if anything, mild pre-eclampsia and there is not enough evidence to deliver at 34 weeks at this time. 2. plan to repeat labs in the am and evaluate pain in the RUQ (currently a 6 on scale 1-10) 3. consult GI or surgery if has persistent RUQ without evidence of pre- eclampsia. The patient has decided to leave the hospital against medical advice. She plans to keep her appt with Dr. Cohen in the morning., Charges/Coding Multi Select Codes Visit Charges Visit Charges: 21172 Init Hosp L3
[2021-12-14 16:24] LABS: Hematocrit 30.7 % (37-47); Hemoglobin 9.7 g/dL (12.0-15.0); Mean Corp Hgb Conc 31.6 g/dL (32-36); Mean Corpuscular Hgb 24.5 pg (27.0-32.0); Mean Corpuscular Volume 77.5 fL (81-99); Mean Platelet Vol. 8.6 fl (6.2-12.0); Platelet Count 368 K/mm3 (150-450); RBC Distribution Width CV 14.8 % (11.6-14.6); RBC Distribution Width SD 41.5 fl (35.1-43.9); Red Blood Count 3.96 M/mm3 (4.2-5.4); White Blood Count 14.1 K/mm3 (4.4-11.0)
[2021-12-14 16:26] LABS: Protein, Urine (Random) 24.2 mg/dL (<11.9); Protein:Creat Ratio 220 mg/g CRE (0-200)
[2021-12-14 16:28] LABS: AST(SGOT) 7 U/L (15-37); Alanine Aminotransfer ALT/SGPT 14 U/L (13-56); EST Glomerular Filtration Rate 132 mL/min (>60); Est Glom Filt Rate - Afr Amer 159 mL/min (>60); Estimated Creatinine Clearance 121.66 ml/min; Uric Acid 3.9 mg/dL (2.6-6.0)
== END 2021-12-14 23:59 | disposition home or self-care (01) ==
LOC: WPOUT 15:28 → WP 15:29
PROVIDERS: Obstetrics & Gynecology; Referring Provider Obstetrics & Gynecology; Visit Provider Obstetrics & Gynecology
DX: O26.893 Other specified pregnancy related conditions, third trimester (principal); Z3A.33 33 weeks gestation of pregnancy
CPT/HCPCS: 36415; 59025; 59050; 82565; 82570; 84156; 84450; 84460; 84550; 85027; 99218; A4216; G0378

== ENCOUNTER 2021-12-17 12:50 | Outpatient (CLI) | payer MEDICAID, SELFPAY ==
[2021-12-17 12:58] VITALS: BP 119/60; PULSE 112
[2021-12-17 13:02] VITALS: BMI 37.5
[2021-12-17 13:14] VITALS: BP 122/58; PULSE 108
[2021-12-17 13:20] LABS: Hemoglobin 9.8 g/dL (12.0-15.0); Mean Corp Hgb Conc 31.6 g/dL (32-36); Mean Corpuscular Hgb 24.2 pg (27.0-32.0); Mean Corpuscular Volume 76.5 fL (81-99); Mean Platelet Vol. 8.5 fl (6.2-12.0); Platelet Count 331 K/mm3 (150-450); RBC Distribution Width CV 14.7 % (11.6-14.6); RBC Distribution Width SD 40.9 fl (35.1-43.9); Red Blood Count 4.05 M/mm3 (4.2-5.4); White Blood Count 12.6 K/mm3 (4.4-11.0)
[2021-12-17 13:29] VITALS: BP 123/60; PULSE 108
[2021-12-17 13:34] LABS: AST(SGOT) 8 U/L (15-37); Alanine Aminotransfer ALT/SGPT 17 U/L (13-56); Creatinine, Serum 0.58 mg/dL (0.55-1.02); EST Glomerular Filtration Rate 139 mL/min (>60); Est Glom Filt Rate - Afr Amer 168 mL/min (>60); Estimated Creatinine Clearance 125.86 ml/min; Uric Acid 3.4 mg/dL (2.6-6.0)
[2021-12-17 13:40] LABS: Protein, Urine (Random) 41.3 mg/dL (<11.9); Protein:Creat Ratio 190 mg/g CRE (0-200)
[2021-12-17 13:44] VITALS: BP 124/66; PULSE 100
[2021-12-17 13:59] VITALS: BP 119/64; PULSE 98
[2021-12-17 14:14] VITALS: BP 120/60; PULSE 93
[2021-12-17] MEDS: Acetaminophen/Butalbital/Caffe 1 Tablet 2 TABLET PO (14:37)
[2021-12-17] MEDS: 0.9 % NaCl (Sterile) Posiflush 10 mL IV (15:45)
--- NOTE | 2021-12-22 04:33 | OB.TRI.PN_ITS ---
Progress Notes Date of Service: 12/17/21 Progress Note: Patient presents for triage evaluation secondary to elevated bps at home FHT: 140 Moderate variability reactive no decelerations category I tracing [place]: no regular Contractions Assessment and plan: elevated blood pressure in - all repeat testing W NL, labs WNL, no change in symptoms, no clonus or hyperreflexia, Reactive NST, reassuring maternal and status patient discharged to home to follow-up as scheduled. See problem list details for additional plan information. Laboratory Studies: Laboratory Tests 12/17/21 12/17/21 12/17/21 Range/Units 13:10 13:10 13:10 WBC 12.6 H (4.4-11.0) K/mm3 RBC 4.05 L (4.2-5.4) M/mm3 Hgb 9.8 L (12.0-15.0) g/dL Hct 31.0 L (37-47) % MCV 76.5 L (81-99) fL MCH 24.2 L (27.0-32.0) pg MCHC 31.6 L (32-36) g/dL RDW Std Deviation 40.9 (35.1-43.9) fl RDW Coeff of Ed 14.7 H (11.6-14.6) % Plt Count 331 (150-450) K/mm3 MPV 8.5 (6.2-12.0) fl Creatinine 0.58 (0.55-1.02) mg/dL Estim Creat Clear Calc 125.86 ml/min Est GFR (MDRD) Af Amer 168 (>60) mL/min Est GFR (MDRD) Non-Af 139 (>60) mL/min Uric Acid 3.4 (2.6-6.0) mg/dL AST 8 L (15-37) U/L ALT 17 (13-56) U/L U Random Total Protein 41.3 H (<11.9) mg/dL Urine Creatinine 217.00 (NO RANGE EST.) mg/dL Protein/Creatinin Ratio 190 (0-200) mg/g CRE Charges/Coding Procedures Urinary/Genital [id number]: [id number] non-stress test Interp
== END 2021-12-17 23:59 | disposition home or self-care (01) ==
LOC: WPOUT 12:56 → WP 12:56
PROVIDERS: Visit Provider Obstetrics & Gynecology
DX: O26.899 Other specified pregnancy related conditions, unspecified trimester (principal); R03.0 Elevated blood-pressure reading, without diagnosis of hypertension
CPT/HCPCS: 96365; 36415; 59025; 59050; 82565; 82570; 84156; 84450; 84460; 84550; 85027; 99218; J1756; G0378

== ENCOUNTER 2021-12-22 10:30 | Outpatient (CLI) | payer MEDICAID, SELFPAY ==
--- NOTE | 2021-12-22 10:31 | US_ITS ---
STUDY: SECOND AND THIRD TRIMESTER OBSTETRICAL ULTRASOUND - LIMITED REASON FOR EXAM: Female, 21 years old RAFITA ONLY -- ABN FINDINGS OF MOTHER -- NON STRESS NON REACTIVE LMP: 04/20/2021. PRIOR ULTRASOUND: Comparison is made with prior study dated 12/05/2021. TECHNIQUE: Transabdominal TECHNICAL QUALITY: Adequate. FINDINGS: There is a single intrauterine fetus. The fetus is in a cephalic presentation. There is demonstrated cardiac activity with a heart rate of 155 bpm. There is a normal amniotic fluid volume. The largest amniotic fluid pocket measures 6.26 cm. The amniotic fluid index (RAFITA) is 15.31 cm. The placenta is anterior in location and is not low lying. There are Grade 1 placental changes. The cervix measures 4.4 cm in length. BIOMETRY: Age by LMP: 35 weeks, 1 days. SHANIQUA by LMP: 01/25/2022. age by prior US: 34 weeks, 3 days. SHANIQUA by prior US: 01/30/2022. US/OB Limited (No Biometrics) IMPRESSION: Normal amniotic fluid. Electronically Signed: Julian Henson MD at 10:48 EDT ,
== END 2021-12-22 23:59 | disposition home or self-care (01) ==
LOC: US 10:31
PROVIDERS: Referring Provider Obstetrics & Gynecology; Visit Provider Obstetrics & Gynecology
DX: O28.8 Other abnormal findings on antenatal screening of mother (principal)
CPT/HCPCS: 76815

== ENCOUNTER → 2021-12-29 | Outpatient (CLI) | payer MEDICAID, SELFPAY ==
[2021-12-29] MEDS: 0.9% NaCl Peripheral Flush Adult/Peds IV (10:17)
[2021-12-29] MEDS: 0.9% NaCl IVPB Med Flush (250 mL) 15 ML IV (10:36)
[2021-12-29 10:46] LABS: Absolute Lymphocyte Count 2.17 X10^3/uL (0.83-4.51); Absolute Neutrophil Count 6.8 X10^3/uL (2.0-7.7); Basophil# 0.04 X10^3/uL; Basophil% 0.4 % (0-1); Hematocrit 31.6 % (37-47); Lymphocyte # 2.17 X10^3/ul (0.83-4.51); Mean Corp Hgb Conc 31.6 g/dL (32-36); Mean Corpuscular Hgb 24.3 pg (27.0-32.0); Mean Corpuscular Volume 76.7 fL (81-99); Mean Platelet Vol. 8.7 fl (6.2-12.0); Monocyte# 0.67 X10^3/uL; Monocyte% 6.8 % (0-10); NRBC Flagged by Analyzer 0 % (0-5); Neutrophil # 6.82 X10^3/uL (2.7-7.7); Neutrophil % 69.3 % (47-70); Platelet Count 289 K/mm3 (150-450); RBC Distribution Width CV 16.8 % (11.6-14.6); Red Blood Count 4.12 M/mm3 (4.2-5.4); White Blood Count 9.9 K/mm3 (4.4-11.0)
[2021-12-29 11:04] VITALS: BP 123/65; PULSE 94; RESP 12; TEMP 36.2; O2SAT 98; BMI 38.6
[2021-12-29 11:10] LABS: ALB/GLOB Ratio 0.6 RATIO (0.9-2.4); AST(SGOT) 8 U/L (15-37); Alanine Aminotransfer ALT/SGPT 14 U/L (13-56); Albumin, Serum 2.6 g/dL (3.2-5.0); Alkaline Phosphatase 127 U/L (45-117); Anion Gap 5 (5-15); BUN 8 mg/dL (7-18); BUN/Creat Ratio 13.5 RATIO (10-20); Calcium,Total 8.4 mg/dL (8.5-10.1); Chloride 110 mmol/L (98-107); Creatinine, Serum 0.59 mg/dL (0.55-1.02); EST Glomerular Filtration Rate 134 mL/min (>60); Est Glom Filt Rate - Afr Amer 163 mL/min (>60); Estimated Creatinine Clearance 123.72 ml/min; Glucose 90 mg/dL (74-106); Potassium 3.9 mmol/L (3.5-5.1); Protein, Total 6.6 g/dL (6.4-8.2); Sodium Level 136 mmol/L (136-145)
[2021-12-29 12:28] VITALS: BP 117/67; PULSE 88; RESP 12; TEMP 35.9; O2SAT 98
[2021-12-29 12:57] LABS: Protein, Urine (Random) 20.2 mg/dL (<11.9); Protein:Creat Ratio 214 mg/g CRE (0-200)
== END | disposition home or self-care (01) ==
LOC: MEDOUTP 10:08
PROVIDERS: Obstetrics & Gynecology; Referring Provider Obstetrics & Gynecology; Visit Provider Obstetrics & Gynecology
DX: Z86.2 Personal history of diseases of the blood and blood-forming organs and certain disorders involving the immune mechanism (principal)
CPT/HCPCS: 96365; 96366; 80053; 82570; 84156; 85025; 87081; J1756; J7050; A4216

== ENCOUNTER 2022-01-01 17:05 | Outpatient (CLI) | payer MEDICAID, SELFPAY ==
[2022-01-01 17:26] VITALS: BP 131/78; PULSE 105; O2SAT 98
[2022-01-01 17:41] VITALS: BP 124/74; PULSE 96; BMI 38.4
[2022-01-01 17:56] VITALS: BP 126/74; PULSE 95
[2022-01-01 18:11] VITALS: BP 127/72; PULSE 99
[2022-01-01 18:15] LABS: Hematocrit 33.7 % (37-47); Hemoglobin 10.4 g/dL (12.0-15.0); Mean Corp Hgb Conc 30.9 g/dL (32-36); Mean Corpuscular Hgb 24.5 pg (27.0-32.0); Mean Corpuscular Volume 79.3 fL (81-99); Mean Platelet Vol. 8.9 fl (6.2-12.0); Platelet Count 409 K/mm3 (150-450); RBC Distribution Width CV 17.4 % (11.6-14.6); RBC Distribution Width SD 47.3 fl (35.1-43.9); Red Blood Count 4.25 M/mm3 (4.2-5.4); White Blood Count 12.2 K/mm3 (4.4-11.0)
[2022-01-01 18:26] VITALS: BP 121/69; PULSE 98
[2022-01-01 18:31] LABS: AST(SGOT) 10 U/L (15-37); Alanine Aminotransfer ALT/SGPT 15 U/L (13-56); Creatinine, Serum 0.56 mg/dL (0.55-1.02); EST Glomerular Filtration Rate 142 mL/min (>60); Est Glom Filt Rate - Afr Amer 172 mL/min (>60); Estimated Creatinine Clearance 130.35 ml/min; Uric Acid 3.6 mg/dL (2.6-6.0)
[2022-01-01 18:32] LABS: Protein, Urine (Random) 30.5 mg/dL (<11.9); Protein:Creat Ratio 231 mg/g CRE (0-200)
--- NOTE | 2022-01-01 21:10 | OB.TRI.HP_ITS ---
HPI - General HPI Narrative JENNIE HAGAN, is a 21 F who presents for elevated bp at home. upon evaluation all bps are WNL 120s to 130s over 60s to 80s. she is still having headaches and visual symptoms that she has had for the last 5-6 weeks, s/p head ct and opthamology consult, mfm consult. no clonus or hyperreflexia today. Maternal Data Information SHANIQUA Calculator Estimated Delivery Date Method Current WG Current Estimate 01/25/22 LMP (Certain) 36w 4d PFSH PFS Medical History (Updated 01/01/22 @ 21:[address] Kacie Cohen MD) H/O iron deficiency anemia Lab test positive for detection of COVID-19 virus Home Medications fexofenadine [Letitia Allergy] 60 mg PO DAILY 11/28/21 [History Last Taken 12/13/21] ferrous sulfate [Iron (ferrous sulfate)] 325 mg PO DAILY 12/03/21 [History Last Taken 12/14/21 09:30] promethazine 12.5 mg tablet 12.5 mg PO Q6H PRN #60 tab 12/12/21 [Rx Last Taken 12/13/21] prenat.vits,abdulaziz,ujp-dxcd-tivjk [ Vitamin] 1 tab PO DAILY 12/14/21 [History Last Taken 12/14/21 09:30] Allergy/AdvReac Type Severity Reaction Status Date / Time tree and shrub pollen Allergy Mild Other Verified 01/01/22 18:03 Family History Mother Hypertension Father Cancer throat- smoker Grandfather Diabetes Myocardial infarction Grandmother Diabetes Aunt Diabetes Social History household members: family number of children: 2 Smoking Status: Never smoker alcohol intake: never substance use type: does not use caffeine: Yes what type of physical activity do you participate in: none seatbelt use: always do you feel safe at home: Yes additional social history: 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 Date Name GA/Weeks Outcome Route Bth Weight Gen Labor Lgth Anesthesia Del Locatn Provider FOB 03/25/19 Luisa 40 live - full term 8lbs 7oz Female epidural [facility] 09/29/20 Radhames 39 live - full term 8lbs 2oz Male e pidural [facility] Delivery Date: 03/25/19 No complications Penny Marcos Delivery Date: 09/29/20 + Covid @ time of delivery; GHTN; mild shoulder dystocia; 2nd degree laceration; nuchal cord x1 tight Deyanira Alba Visit Details Expected Delivery Route/Plan Labor Preference CB/BF classes: [] labor support person: [] labor intervention preferences: minimal intervention desired, wants to use nitrous only. Epidural hurt her back last time. pain management options preferred: nitrous cut cord/dad catch: [] : [] PP control planned: [] discussed possible routes of delivery and associated risks: [] special requests: [] Plans Covid status:counseled regarding risk of covid in vs vaccination and declined vaccination Flu vaccine: completed during Tdap vaccine: Rhogam: [na LARC form signed: larc movement and labor precautions reviewed. preeclampsia precautions revealed Problem list reviewed and updated with the most current plan of care details and appropriate orders placed. Relevant counseling for the gestational age provided. Continue routine care and follow up unless otherwise noted in visit notes/problem list details OB Flowsheet Initial Weight: 206 lb Date -?-?-?-?-?-?-?-?-?-?-?-?- EGA Weight BP Urine Prot -?-?-?-?-?-?-?-?-?-?-?-?- Glucose FHR FuHt Pres Dilation -?-?-?-?-?-?-?-?-?-?-?-?- Effaced St Visit Note 07/10/21 -?-?-?-?-?-?-?-?-?-?-?-?- 11w 4d 206 lb (+0 oz) 132/80 -?-?-?-?-?-?-?-?-?-?-?-?- 189 -?-?-?-?-?-?-?-?-?-?-?-?- SM- CRL 3.75cm c ons with LMP 08/08/21 -?-?-?-?-?-?-?-?-?-?-?-?- 15w 5d 204 lb 8 oz (-1 lb 8 oz) 120/60 Negative -?-?-?-?-?-?-?-?-?-?-?-?- Negative 161 -?-?-?-?-?-?--?-?-?-?-?-?- JV- pt still ble eding from small subchorionic hemorrhage. pt reassured today, bleeding precautions given. rto in 2 weeks for reassurance and sooner if bleeding becomes heavy. JV- pt still bleeding from s mall subchorionic hemorrhage. pt reassured today with bedside us. bleeding precautions given. rto in 2 weeks for reassurance and sooner if bleeding becomes heavy. 08/25/21 -?-?-?-?-?-?-?-?-?-?-?-?- 18w 1d 205 lb (-16 oz) 130/80 Negative -?-?-?-?-?-?-?-?-?-?-?-?- Negative -?--?-?-?-?-?-?-?-?-?-?-?- 09/20/21 -?-?-?-?-?-?-?-?-?-?-?-?- 21w 6d 203 lb (-3 lb) 112/66 Negative -?-?-?-?-?-?-?-?-?-?-?-?- Negative 145 22 -?-?-?-?-?-?-?-?-?-?-?-?- SM- has had some intermittent bleeding. no lof no regualr ctx 10/25/21 -?-?-?-?-?-?-?-?-?-?-?-?- 26w 6d 205 lb (-16 oz) 100/70 Negative -?-?-?-?-?-?-?-?-?-?-?-?- Negative 158 27 -?-?-?-?-?-?-?-?-?-?-?-?- JV- no lof, or d ec fm. still have some spotting. does not feel comfortable with baby asa due to bleeding. had covid and flu in . She is very concerned about the end of her and would like a 39 week IOL planned if possible so that her can be present. She wants SM if possible. 11/03/21 -?-?-?-?-?-?-?-?-?-?-?-?- 28w 1d 206 lb (+0 oz) 132/72 -?-?-?-?-?-?-?-?-?-?-?-?- 140 28 -?-?-?-?-?-?-?-?-?-?-?-?- SM- still having intermittent spotting. get US today. no regualr ctx. no pelvic pressure. good fm. no lof. SM- still having intermitten t spotting. get US today. no regualr ctx. no pelvic pressure. good fm. no lof. to l and d for steroids and mornitoring, eval 11/10/21 -?-?-?-?-?-?-?-?-?-?-?-?- 29w 1d 204 lb (-2 lb) 120/70 Negative -?-?-?-?-?-?-?-?-?-?-?-?- Negative 160 29 Cephalic 0 -?-?-?-?-?-?-?-?-?--?-?-?- JV- no lof but i s complaining of cramping and continued on and off bleeding. NST is reactive for gestational age. on pelvic exam the cervix is erythematous and there is a scant amount of discharge that may be only physiologic. red top tube collected. cx is closed visually. No signs of bleeding present. no cervical ectropion present. pt asking for note to be off work the remainder of and is seeing mfm on saturday. I have asked her to come to the office when and if she bleeds again so that we may see where the blood is coming from. ultrasound shows anterior non-low lying placenta. 11/16/21 -?-?-?-?-?-?-?-?-?-?-?-?- 30w 0d 208 lb 4 oz (+2 lb 4 oz) 132/60 Negative -?-?-?-?-?-?-?-?-?-?-?-?- Negative 150 30 Cephalic 0 -?-?-?-?-?-?-?-?-?-?-?-?- JV- no blood aga in on exam. no signs of external hemorrhoids. there is a prominent varicosity on the right outer labia. Pt was given options for admission in hospital for remainder of by [facility] and declined. She will try a light tampon in the lower aspect of the vagina and if sees blood next time she goes to the bathroom she is to remove the tampon. if there is blood on the tampon she will need admission for remainder of to [facility] in [place]. 11/22/21 -?-?-?-?-?-?-?-?-?-?-?-?- 30w 6d 209 lb (+3 lb) 130/70 Negative -?-?-?-?-?-?-?-?-?-?-?-?- Negative 150 -?-?-?-?-?-?-?-?-?-?-?-?- JV- pt states th at she is confident that the blood is coming from the vein on the outer labia however with the tampon trick, she noticed some brown discharge at the tip of the tampon. Will need ton continue nsts due to this. pt still declines admit. 11/28/21 -?-?-?-?-?-?-?-?-?-?-?-?- 31w 5d 210 lb 5.136 oz (+4 lb 5.136 oz) 124/76 -?-?-?-?-?-?-?-?-?-?-?-?- -?-?-?-?-?-?-?-?-?-?-?-?- 12/01/21 -?-?-?-?-?-?-?-?-?-?-?-?- 32w 1d 5 lb 3 oz (-200 lb 13 oz) 210 lb (+4 lb) 130/82 Negative -?-?-?-?-?-?-?-?-?-?-?-?- Negative 140 32 Cephalic 0 -?-?-?-?-?-?-?-?-?-?-?-?- SM- had some bro wn discharge, no activ ebleeding, no reuglar ctx good fm some pressure 12/03/21 -?-?-?-?-?-?-?-?-?-?-?-?- 32w 5d 210 lb 9.6 oz (+4 lb 9.6 oz) 140/82 130/75 133/67 141/80 142/79 133/71 131/76 126/79 126/64 132/72 125/68 134/72 126/75 128/63 109/53 110/51 126/63 132/62 118/57 121/69 131/63 148/66 128/56 127/74 117/58 115/51 115/51 114/53 114/53 108/66 -?-?-?-?-?-?-?-?-?-?-?-?- -?-?-?-?-?-?-?-?-?-?-?-?- 12/07/21 -?-?-?-?-?-?-?-?-?-?-?-?- 33w 0d 214 lb (+8 lb) 138/78 Negative -?-?-?-?-?-?-?-?-?-?-?-?- Negative 140 -?-?-?-?-?-?-?-?-?-?-?-?- Sm- light pink t ues night/, no activ bleeding no regular ctx, still dizzy no syncope. intermittent visual changes. optho cs WNL. will check labs today. 12/12/21 -?-?-?-?-?-?-?-?-?-?-?-?- 33w 5d 213 lb (+7 lb) 112/74 Negative -?-?-?-?-?-?-?-?-?-?-?-?- Negative -?-?-?-?-?-?-?-?-?-?-?-?- MH-NST only reac tive. Headache persists. Recent normal labs. Will discuss with JOSH 12/14/21 -?-?-?-?-?-?-?-?-?-?-?-?- 34w 0d 213 lb 13.574 oz (+7 lb 13.574 oz) 136/69 123/56 139/74 136/76 126/76 124/78 120/64 117/64 134/79 -?-?-?-?-?-?-?-?-?-?-?-?- -?-?-?-?-?-?-?-?-?-?-?-?- 12/15/21 -?-?-?-?-?-?-?-?-?-?-?-?- 34w 1d 212 lb (+6 lb) 106/69 Negative -?-?-?-?-?-?-?-?-?-?-?-?- Negative 150 -?-?-?-?-?-?-?-?-?-?-?-?- SM- no vb lof so me fm no regular ctx. seen on l and d yesterday for elevated bps at home, all bps WNL and labs WNL, recommended to be admitted overnight and patient left AMA. evaluated today and reactive NST, isolated 10 mild variable, will get RAFITA today. 12/19/21 -?-?-?-?-?-?-?-?-?-?-?-?- 34w 5d 219 lb (+13 lb) 122/77 Negative -?-?-?-?-?-?-?-?-?-?-?-?- 1000 g/dL 140 -?-?-?-?-?-?-?-?-?-?-?-?- MH-NST only reac tive 12/22/21 -?-?-?-?-?-?-?-?-?-?-?-?- 35w 1d 212 lb (+6 lb) 114/71 Negative -?-?-?-?-?-?-?-?-?-?-?-?- Negative 140 150 -?-?-?-?-?-?-?-?-?-?-?-?- SM- no vb lof go od fm no regular ctx 12/26/21 -?-?-?-?-?-?-?-?-?-?-?-?- 35w 5d 216 lb (+10 lb) 138/70 Negative -?-?-?-?-?-?-?-?-?-?-?-?- Negative 150 -?-?-?-?-?-?-?-?-?-?-?-?- MH-NST only reac tive. Normal pre E labs 2 days ago. Headache and vision changes persist. 12/29/21 -?-?-?-?-?-?-?-?-?-?-?-?- 36w 1d 219 lb 2 oz (+13 lb 2 oz) 130/70 Negative -?-?-?-?-?-?-?-?-?-?-?-?- Negative 150 -?-?-?-?-?-?-?-?-?-?-?-?- SM- no vb lof go od fm no reuglar ctx still having headaches some worse. bps all normal at home. check labs today. RAFITA due to mild variable. getting IV iron infusion today, gbs collected. no clonus today. no hyperreflexia. 01/01/22 -?-?-?-?-?-?-?-?-?-?-?-?- 36w 4d 217 lb (+11 lb) 131/78 124/74 126/74 127/72 121/69 -?-?-?-?-?-?-?-?-?-?-?-?- -?-?-?--?-?-?-?-?-?-?-?-?- ROS Constitutional Constitutional: Reports systems reviewed and no addt'l complaints, except as documented ENT HEENT: Reports as per HPI Gastrointestinal Gastrointestinal: Reports systems reviewed and no addt'l complaints, except as documented Physical Exam Const alert, oriented x3 and no apparent distress HEENT Head and Scalp: normocephalic and atraumatic Eyes EOMs intact bilaterally Neck full ROM and no lymphadenopathy Chest inspection of chest normal Resp normal respiratory effort GI GI Narrative: gravid, abdomen nontender, AGA Neuro no focal motor deficits Motor Exam: clonus absent NST FHR Rate Baby A Baseline: 140 Variability:: Moderate Accelerations:: 15 x 15 Decelerations:: None NST Reactive:: Yes FHR Category:: Category I Uterine Activity:: no regular Assessment & Plan (1) Supervision of high risk in third trimester: COMMENT: PRR SHANIQUA: 01/25/22 PC: Radhames Miguel Spouse: Pankaj (2) Headache in : QUALIFIERS: Trimester: third trimester Qualified Code(s): O26.893 - Other specified related conditions, third trimester; R51.9 - Headache, unspecified COMMENT: tylenol, offered phenerga/reglan. nl bps and nl pree labs. plan twice weekly testing as OP with twice weekly NSTs, twice weekly labs, home bp monitoring. optum consult. discussed with MFM. (3) Visual changes: COMMENT: see a/p of RODRIGES. nl optho cs, neg CT of head, and nl serial labs. s/p serial bps with STO. (4) Lab test positive for detection of COVID-19 virus: COMMENT: 81mg asa daily and 32 & 36 wk growth US (5) Vaginal bleeding during : COMMENT: stable but intermittent. nl anatomy scan, nl placental location, repeat US and MFM consult agree with increased testing. Repeat US nl, recommend weekly visits and nsts while persistent. Abruption workup negative. twice weekly at 32 (6) H/O iron deficiency anemia: COMMENT: IV iron infusions now. (7) : QUALIFIERS: Weeks of gestation: 36 weeks Qualified Code(s): Z3A.36 - 36 weeks gestation of COMMENT: genetics- low risk female and carrier neg. , aug afp screen. nl anatomy, growth US nl, rafita nl (8) Elevated blood pressure reading: COMMENT: at home, sent to triage for evaluation and all WNL, negative urine protein and nl preeclampsia lab evaluation. Charges/Coding Procedures Urinary/Genital [id number]: 08180-30 non-stress test Interp Multi Select Codes Visit Charges Office Visit/Consults: 25504 OV L3 Est
== END 2022-01-01 19:00 | disposition home or self-care (01) ==
LOC: WPOUT 17:11 → WP 17:12
PROVIDERS: Referring Provider Obstetrics & Gynecology; Visit Provider Obstetrics & Gynecology
DX: O99.891 Other specified diseases and conditions complicating pregnancy (principal); Z3A.36 36 weeks gestation of pregnancy; O99.013 Anemia complicating pregnancy, third trimester; D50.9 Iron deficiency anemia, unspecified; Z86.16 Personal history of COVID-19; Z79.899 Other long term (current) drug therapy; R51.9 Headache, unspecified
CPT/HCPCS: 36415; 59025; 59050 ×2; 82565; 82570; 84156; 84450; 84460; 84550; 85027; G0378 ×2; 99218

== ENCOUNTER 2022-01-04 06:58 | Inpatient (IN) | payer MEDICAID, SELFPAY ==
[2022-01-04] VITALS (70 sets, daily range): BP systolic 81–139; BP diastolic 38–74; PULSE 65–198; RESP 16; TEMP 36.3–37.2; O2SAT 81–99; BMI 38.4
[2022-01-04] MEDS: Lactated Ringers 1,000 ML 50 ML IV (07:45)
--- NOTE | 2022-01-04 08:10 | HP.PCM.OB_ITS ---
HPI - General General Date of Admission: 01/04/22 HPI Narrative JENNIE HAGAN, is a 21 y/o @ 37 weeks 0 days gestation who presents to L&D for IOL due to mild pre-eclampsia based on symptoms of visual changes and headaches. Her blood pressures and labs have been normal, however M expert, Dr. West has recommended IOL based on symptoms. Maternal Data Information SHANIQUA Calculator Estimated Delivery Date Method Current WG Current Estimate 01/25/22 LMP (Certain) 37w 0d PFSH PFSH Medical History H/O iron deficiency anemia Lab test positive for detection of COVID-19 virus Mild pre-eclampsia Home Medications fexofenadine [Letitia Allergy] 60 mg PO DAILY 11/28/21 [History Last Taken 12/13/21] ferrous sulfate [Iron (ferrous sulfate)] 325 mg PO DAILY 12/03/21 [History Last Taken 12/14/21 09:30] promethazine 12.5 mg tablet 12.5 mg PO Q6H PRN #60 tab 12/12/21 [Rx Last Taken 12/13/21] prenat.vits,abdulaziz,[id number]-wzkse [ Vitamin] 1 tab PO DAILY 12/14/21 [History Last Taken 12/14/21 09:30] Allergy/AdvReac Type Severity Reaction Status Date / Time tree and shrub pollen Allergy Mild Other Verified 01/04/22 07:10 Family History Mother Hypertension Father Cancer throat- smoker Grandfather Diabetes Myocardial infarction Grandmother Diabetes Aunt Diabetes Social History household members: family number of children: 2 Smoking Status: Never smoker alcohol intake: never substance use type: does not use caffeine: Yes what type of physical activity do you participate in: none seatbelt use: always do you feel safe at home: Yes additional social history: 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 Date Name GA/Weeks Outcome Route Bth Weight Infant Gen Labor Lgth Anesthesia Del Locatn Provider FOB 07/10/19 Luisa 40 live - full term 8lbs 7oz Female epidural [facility] 09/29/20 Radhames 39 live - full term 8lbs 2oz Male e pidural [facility] Delivery Date: 03/25/19 No complications Penny Marcos Delivery Date: 09/29/20 + Covid @ time of delivery; GHTN; mild shoulder dystocia; 2nd degree laceration; nuchal cord x1 tight Deyanira Alba Visit Details Expected Delivery Route/Plan Labor Preference CB/BF classes: [] labor support person: [] labor intervention preferences: minimal intervention desired, wants to use nitrous only. Epidural hurt her back last time. pain management options preferred: nitrous cut cord/dad catch: [] : [] PP control planned: [] discussed possible routes of delivery and associated risks: [] special requests: [] Plans Covid status:counseled regarding risk of covid in vs vaccination and declined vaccination Flu vaccine: completed during Tdap vaccine: Rhogam: [na LARC form signed: larc movement and labor precautions reviewed. preeclampsia precautions revealed Problem list reviewed and updated with the most current plan of care details and appropriate orders placed. Relevant counseling for the gestational age provided. Continue routine care and follow up unless otherwise noted in visit notes/problem list details OB Flowsheet Initial Weight: 206 lb Date -?-?-?-?-?-?-?-?-?-?-?-?- EGA Weight BP Urine Prot -?-?-?-?-?-?-?-?-?-?-?-?- Glucose FHR FuHt Pres Dilation -?-?-?-?-?-?-?-?-?-?-?-?- Effaced St Visit Note 07/10/21 -?-?-?-?-?-?-?-?-?-?-?-?- 11w 4d 206 lb (+0 oz) 132/80 -?-?-?-?-?-?-?-?-?-?-?-?- 189 -?-?-?-?-?-?-?-?-?-?--?-?- SM- CRL 3.75cm c ons with LMP 08/08/21 -?-?-?-?-?-?-?-?-?-?-?-?- 15w 5d 204 lb 8 oz (-1 lb 8 oz) 120/60 Negative -?-?-?-?-?-?-?-?-?-?-?-?- Negative 161 -?-?-?-?-?-?-?-?-?-?-?-?- JV- pt still ble eding from small subchorionic hemorrhage. pt reassured today, bleeding precautions given. rto in 2 weeks for reassurance and sooner if bleeding becomes heavy. JV- pt still bleeding from s mall subchorionic hemorrhage. pt reassured today with bedside us. bleeding precautions given. rto in 2 weeks for reassurance and sooner if bleeding becomes heavy. 08/25/21 -?-?-?-?-?-?-?-?-?-?-?-?- 18w 1d 205 lb (-16 oz) 130/80 Negative -?-?-?-?-?-?-?-?-?-?-?-?- Negative -?-?-?-?-?-?-?-?-?-?-?-?- 09/20/21 -?-?-?-?-?-?-?-?-?-?-?-?- 21w 6d 203 lb (-3 lb) 112/66 Negative -?-?-?-?-?-?-?-?-?-?-?-?- Negative 145 22 -?-?-?-?-?-?-?-?-?-?-?-?- - has had some intermittent bleeding. no lof no regualr ctx 10/25/21 -?-?-?-?-?-?-?-?-?-?-?-?- 26w 6d 205 lb (-16 oz) 100/70 Negative -?-?-?-?-?-?-?-?-?-?-?-?- Negative 158 27 -?-?-?-?-?-?-?-?-?-?-?-?- JV- no lof, or d ec fm. still have some spotting. does not feel comfortable with baby asa due to bleeding. had covid and flu in . She is very concerned about the end of her and would like a 39 week IOL planned if possible so that her can be present. She wants SM if possible. 11/03/21 -?-?-?-?-?-?-?-?-?-?-?-?- 28w 1d 206 lb (+0 oz) 132/72 -?-?-?-?-?-?-?-?-?-?-?-?- 140 28 -?-?-?-?-?-?-?-?-?-?-?-?- SM- still having intermittent spotting. get US today. no regualr ctx. no pelvic pressure. good fm. no lof. SM- still having intermitten t spotting. get US today. no regualr ctx. no pelvic pressure. good fm. no lof. to l and d for steroids and mornitoring, eval 11/10/21 -?-?-?-?-?-?-?-?-?-?-?-?- 29w 1d 204 lb (-2 lb) 120/70 Negative -?-?-?-?-?-?-?-?-?-?-?-?- Negative 160 29 Cephalic 0 -?-?-?-?-?-?-?-?-?-?-?-?- JV- no lof but i s complaining of cramping and continued on and off bleeding. NST is reactive for gestational age. on pelvic exam the cervix is erythematous and there is a scant amount of discharge that may be only physiologic. red top tube collected. cx is closed visually. No signs of bleeding present. no cervical ectropion present. pt asking for note to be off work the remainder of and is seeing mfm on saturday. I have asked her to come to the office when and if she bleeds again so that we may see where the blood is coming from. ultrasound shows anterior non-low lying placenta. 11/16/21 -?-?-?-?-?-?-?-?-?-?-?-?- 30w 0d 208 lb 4 oz (+2 lb 4 oz) 132/60 Negative -?-?-?-?-?-?-?-?-?-?-?-?- Negative 150 30 Cephalic 0 -?-?-?-?-?-?-?-?-?-?-?-?- JV- no blood aga in on exam. no signs of external hemorrhoids. there is a prominent varicosity on the right outer labia. Pt was given options for admission in hospital for remainder of by [facility] and declined. She will try a light tampon in the lower aspect of the vagina and if sees blood next time she goes to the bathroom she is to remove the tampon. if there is blood on the tampon she will need admission for remainder of to [facility] in [place]. 11/22/21 -?-?-?-?-?-?-?-?-?-?-?-?- 30w 6d 209 lb (+3 lb) 130/70 Negative -?-?-?-?-?-?-?-?-?-?-?-?- Negative 150 -?-?-?-?-?-?-?-?-?-?-?-?- JV- pt states th at she is confident that the blood is coming from the vein on the outer labia however with the tampon trick, she noticed some brown discharge at the tip of the tampon. Will need ton continue nsts due to this. pt still declines admit. 11/28/21 -?-?-?-?-?-?-?-?-?-?-?-?- 31w 5d 210 lb 5.136 oz (+4 lb 5.136 oz) 124/76 -?-?-?-?-?-?-?-?-?-?-?-?- -?-?-?-?-?-?-?-?-?-?-?-?- 12/01/21 -?-?-?-?-?-?-?-?-?-?-?-?- 32w 1d 5 lb 3 oz (-200 lb 13 oz) 210 lb (+4 lb) 130/82 Negative -?-?-?-?-?-?-?-?-?-?-?-?- Negative 140 32 Cephalic 0 -?-?-?-?-?-?-?-?-?-?-?-?- SM- had some bro wn discharge, no activ ebleeding, no reuglar ctx good fm some pressure 12/03/21 -?-?-?-?-?-?-?-?-?-?-?-?- 32w 5d 210 lb 9.6 oz (+4 lb 9.6 oz) 140/82 130/75 133/67 141/80 142/79 133/71 131/76 126/79 126/64 132/72 125/68 134/72 126/75 128/63 109/53 110/51 126/63 132/62 118/57 121/69 131/63 148/66 128/56 127/74 117/58 115/51 115/51 114/53 114/53 108/66 -?-?-?-?-?-?-?-?-?-?-?-?- -?-?-?-?-?-?-?-?-?-?-?-?- 12/07/21 -?-?-?-?-?-?-?-?-?-?-?-?- 33w 0d 214 lb (+8 lb) 138/78 Negative -?-?-?-?-?-?-?-?-?-?-?-?- Negative 140 -?-?-?-?-?-?--?-?-?-?-?-?- Sm- light pink t ues night/, no activ bleeding no regular ctx, still dizzy no syncope. intermittent visual changes. optho cs WNL. will check labs today. 12/12/21 -?-?-?-?-?-?-?-?-?-?-?-?- 33w 5d 213 lb (+7 lb) 112/74 Negative -?-?-?-?-?-?-?-?-?-?-?-?- Negative -?-?-?-?-?-?--?-?-?-?-?-?- MH-NST only reac tive. Headache persists. Recent normal labs. Will discuss with JOSH 12/14/21 -?-?-?-?-?-?-?-?-?-?-?-?- 34w 0d 213 lb 13.574 oz (+7 lb 13.574 oz) 136/69 123/56 139/74 136/76 126/76 124/78 120/64 117/64 134/79 -?-?-?-?-?-?-?-?-?-?-?-?- -?-?-?-?-?-?-?-?-?-?-?-?- 12/15/21 -?-?-?-?-?-?-?-?-?-?-?-?- 34w 1d 212 lb (+6 lb) 106/69 Negative -?-?-?-?-?-?-?-?-?-?-?-?- Negative 150 -?-?-?-?-?-?-?-?-?-?-?-?- SM- no vb lof so me fm no regular ctx. seen on l and d yesterday for elevated bps at home, all bps WNL and labs WNL, recommended to be admitted overnight and patient left AMA. evaluated today and reactive NST, isolated 10 mild variable, will get RAFITA today. 12/19/21 -?-?-?-?-?-?-?-?-?-?-?-?- 34w 5d 219 lb (+13 lb) 122/77 Negative -?-?-?-?-?-?-?-?-?-?-?-?- 1000 g/dL 140 -?-?-?-?-?-?-?-?-?-?-?-?- MH-NST only reac tive 12/22/21 -?-?-?-?-?--?-?-?-?-?-?-?- 35w 1d 212 lb (+6 lb) 114/71 Negative -?-?-?-?-?-?-?-?-?-?-?-?- Negative 140 150 -?-?-?-?-?-?-?-?-?-?-?-?- SM- no vb lof go od fm no regular ctx 12/26/21 -?-?-?-?-?-?-?-?-?-?-?-?- 35w 5d 216 lb (+10 lb) 138/70 Negative -?-?-?-?-?-?-?-?-?-?-?--?- Negative 150 -?-?-?-?-?-?-?-?-?-?-?-?- -NST only reac tive. Normal pre E labs 2 days ago. Headache and vision changes persist. 12/29/21 -?-?-?-?-?-?-?-?-?-?-?-?- 36w 1d 219 lb 2 oz (+13 lb 2 oz) 130/70 Negative -?-?-?-?-?-?-?-?-?-?-?-?- Negative 150 -?-?-?-?-?--?-?-?-?-?-?-?- SM- no vb lof go od fm no reuglar ctx still having headaches some worse. bps all normal at home. check labs today. RAFITA due to mild variable. getting IV iron infusion today, gbs collected. no clonus today. no hyperreflexia. 01/01/22 -?-?-?-?-?-?-?-?-?-?-?-?- 36w 4d 217 lb (+11 lb) 131/78 124/74 126/74 127/72 121/69 -?-?-?-?-?-?-?-?-?-?-?-?- -?-?-?-?-?-?-?-?-?-?-?-?- 01/02/22 -?-?-?-?-?-?-?-?-?-?-?-?- 36w 5d 220 lb 4 oz (+14 lb 4 oz) 132/70 Negative -?-?-?-?-?-?-?-?-?-?-?-?- Negative 140 Cephalic 1 -?-?-?-?-?-?-?-?-?-?-?-?- 30 -3 JV- no lo f, vaginal bleeding, or dec fm. normal bp today, still has elevated levels at home and visual changes. Per Dr. West, recommend delivery at 37 weeks. IOL for set up 01/04/22 -?-?-?-?-?-?-?-?-?-?-?-?- 37w 0d 138/73 -?-?-?-?-?-?-?-?-?-?-?-?- -?-?-?-?-?-?-?-?-?-?-?-?- ROS Constitutional Constitutional: Denies change in weight, fatigue, fever(s), headache(s), poor appetite or weakness Eyes Eyes: Denies blurry vision, change in vision, seeing flashes or spots in vision ENT HEENT: Denies dizziness, headache(s), loss taste/smell or sore throat Cardiovascular Cardiovascular: Denies chest pain, dizziness, dyspnea, irregular heart rhythm, leg edema, palpitations, rapid heart rate or vomiting Respiratory/Chest Respiratory/Chest: Denies chest tightness, cough, dyspnea or breast pain Gastrointestinal Gastrointestinal: Denies abdominal pain, anorexia, constipation, cramping, diarrhea, hemorrhoids, vomiting or weight changes Genitourinary Genitourinary: Denies dysuria, flank pain, genital lesions, genital pain, urinary frequency or urinary urgency Musculoskeletal Musculoskeletal: Denies back pain, difficulty walking, joint pain, limited range of motion, muscle cramps or numbness Integumentary Integumentary: Denies lesions or unusual bruising Neurologic Neurologic: Denies abnormal movements, abnormal speech, dizziness, numbness, seizure-like activity or syncope Psychiatric Psychiatric: Denies anxiety, behavioral changes, change in appetite, change in libido, cognitive impairment, confusion, depression, difficulty concentrating, hallucinations or suicidal thoughts Endocrine Endocrinology: Denies excessive sweating, polydipsia or polyuria Hematologic/Lymphatic Hematologic/Lymphatic: Denies easy bleeding, easy bruising or lymphadenopathy Allergic/Immunologic Allergic/Immunologic: Denies itchy eyes, lip swelling, seasonal rhinorrhea, rhinitis, throat swelling, tongue swelling, eczemia, wheezing or asthma Vital Signs Vital Signs Vital Signs: 01/04/22 07:23 01/04/22 07:28 Temperature 98.8 F Temperature Source Temporal Pulse Rate 148 H 106 H Blood Pressure 138/73 H BP Systolic 138 BP Diastolic 73 Pulse Ox 98 98 Physical Exam Const alert, oriented x3, no apparent distress and healthy appearing General Appearance: cooperative; Negative for anxious HEENT normocephalic Face and Sinus: normal facial exam Eyes EOMs intact bilaterally and no scleral icterus General Eye: normal appearance of both eyes Neck full ROM and supple Lymph Lymphatic: no lymphadenopathy noted Chest Chest: abnormal inspection of the chest Resp normal respiratory effort Effort and Inspection: able to speak in complete sentences Cardio regular rate GI soft to palpation and non-tender Inspection: gravid Palpation: soft; Negative for tender external exam normal Amniotic Fluid: other The cervix is 1/50/-4, a valencia catheter was slipped into the cervix and inflated with 80cc of NS without difficulty Back/Spine no CVA tenderness Extremity normal to inspection, full ROM and no clubbing, cyanosis or edema General Extremity: Negative for calf tenderness or edema Skin Lesions: no lesions Rashes: no rashes Psych mental status grossly normal Labs Labs Labs: Blood Type O POSITIVE Antibody Screen NEGATIVE Hct 33.7 % (37-47) L Hgb 10.4 g/dL (12.0-15.0) L Obstetrics US Syphilis Total Ab Non-reactive Rubella IgG Antibody Reactive (Nonreactive) Hep Bs Antigen Non-Reactive (Nonreactive) Chlamydia DNA (RAJ) Negative (Negative) Neisseria gonorrhoeae DNA (RAJ) Negative (Negative) HIV 1&2 Antibody Non-Reactive (Nonreactive) Glucose 1 Hr 50 gm 117 mg/dL (70-140) Rhogam given: No Assessment & Plan (1) Mild pre-eclampsia: COMMENT: per Dr. West (2) Supervision of high risk in third trimester: COMMENT: PRR SHANIQUA: 01/25/22 PC: Radhames Miguel Spouse: Pankaj (3) Headache in : QUALIFIERS: Trimester: third trimester Qualified Code(s): O26.893 - Other specified related conditions, third trimester; R51.9 - Headache, unspecified COMMENT: tylenol, offered phenerga/reglan. nl bps and nl pree labs. plan twice weekly testing as OP with twice weekly NSTs, twice weekly labs, home bp monitoring. optum consult. discussed with MFM. (4) Visual changes: COMMENT: see a/p of RODRIGES. nl optho cs, neg CT of head, and nl serial labs. s/p serial bps with STO. (5) Lab test positive for detection of COVID-19 virus: COMMENT: 81mg asa daily and 32 & 36 wk growth US (6) Vaginal bleeding during : COMMENT: stable but intermittent. nl anatomy scan, nl placental location, repeat US and MFM consult agree with increased testing. Repeat US nl, recommend weekly visits and nsts while persistent. Abruption workup negative. twice weekly at 32 (7) H/O iron deficiency anemia: COMMENT: IV iron infusions now. (8) : QUALIFIERS: Weeks of gestation: 36 weeks Qualified Code(s): Z3A.36 - 36 weeks gestation of COMMENT: genetics- low risk female and carrier neg. , aug afp screen. nl anatomy, growth US nl, rafita nl, GBS negative PLAN: valencia is in plan to start pitocin. ok to have pain medication or epidural as needed PIH labs ordered
[2022-01-04 08:15] LABS: Absolute Lymphocyte Count 2.36 X10^3/uL (0.83-4.51); Absolute Neutrophil Count 7.4 X10^3/uL (2.0-7.7); Basophil# 0.03 X10^3/uL; Basophil% 0.3 % (0-1); Eosinophil# 0.07 X10^3/uL; Eosinophils% 0.7 % (0-5); Hematocrit 32.6 % (37-47); Hemoglobin 10.2 g/dL (12.0-15.0); Lymphocyte # 2.36 X10^3/ul (0.83-4.51); Mean Corp Hgb Conc 31.3 g/dL (32-36); Mean Corpuscular Hgb 25.1 pg (27.0-32.0); Mean Corpuscular Volume 80.1 fL (81-99); Mean Platelet Vol. 8.8 fl (6.2-12.0); Monocyte# 0.73 X10^3/uL; Monocyte% 6.8 % (0-10); NRBC Flagged by Analyzer 0 % (0-5); Neutrophil # 7.42 X10^3/uL (2.7-7.7); Platelet Count 357 K/mm3 (150-450); RBC Distribution Width CV 18.6 % (11.6-14.6); Red Blood Count 4.07 M/mm3 (4.2-5.4); White Blood Count 10.7 K/mm3 (4.4-11.0)
[2022-01-04] MEDS: 0.9% Normal Saline Single 100 ML IV.SOLN. INTRA-UTER (08:20)
[2022-01-04 08:27] LABS: Protein, Urine (Random) 48.4 mg/dL (<11.9); Protein:Creat Ratio 226 mg/g CRE (0-200)
[2022-01-04] MEDS: Oxytocin 30 units/NS 500 ml 30 UNITS/500 ML IV.SOLN IV (08:36)
[2022-01-04 08:39] LABS: AST(SGOT) 9 U/L (15-37); Alanine Aminotransfer ALT/SGPT 15 U/L (13-56); Creatinine, Serum 0.59 mg/dL (0.55-1.02); EST Glomerular Filtration Rate 135 mL/min (>60); Est Glom Filt Rate - Afr Amer 164 mL/min (>60); Estimated Creatinine Clearance 123.72 ml/min; Uric Acid 3.9 mg/dL (2.6-6.0)
[2022-01-04] MEDS: Ondansetron 4 MG/2 ML Vial IV (10:44)
[2022-01-04] MEDS: Lactated Ringers 500 ML 999 ML IV ×2 (10:55→12:23)
--- NOTE | 2022-01-04 13:32 | PCM.PN.BLA ---
Progress Note valencia is out and pt is comfortable with epidural current tracing: FHT: 140's, Moderate variability reactive no decelerations category I tracing Duarte: q2 min Contractions cx: 6, bulging membranes. membranes ruptured and noted to ve /-2 reviewed tracing abnormalities since last note: no changes A/P: mild pre-e. pressures normal. labs normal continue pitocin- at 2 mu/min now, increase as needed
[2022-01-04] MEDS: Lactated Ringers 1,000 ML 200 ML IV (14:54)
[2022-01-04] MEDS: fentaNYL-bupivacaine (epidural) 100 ML BAG EPIDURAL (16:43)
[2022-01-04] MEDS: Oxytocin 30 units/NS 500 ml 30 UNITS/500 ML IV.SOLN 334 UNITS IV (17:22)
[2022-01-04] MEDS: Carboprost Tromethamine 250 MCG/ML Ampul IM (17:29)
--- NOTE | 2022-01-04 17:48 | EX.PCM.OBRPT ---
Maternal Data Information SHANIQUA Calculator Estimated Delivery Date Method Current Current Estimate 01/25/22 LMP (Certain) 37w 0d Vaginal Delivery Maternal Presentation Maternal Presentation: Medically Indicated Induction Type of Induction: Pitocin, Atkinson Bulb and Amniotomy Operative Information Date of Procedure: 01/04/22 Pre-Operative Diagnosis: mild preeclampsia, 37 weeks 0 days, Post-Operative Diagnosis: mild preeclampsia, 37 weeks 0 days, Surgery / Procedure Performed: Spontaneous Vaginal Delivery Type of Anesthesia: Epidural Estimated Blood Loss: 400cc Findings Description of Procedure: Patient began pushing and delivered the head in the STEPHANIE presentation. The head was delivered atraumatically. The anterior and posterior shoulders delivered without complication followed by the rest of the and the was placed on the maternal abdomen. Delayed cord clamping was employed for approximately 60 seconds. Cord was clamped and cut and gentle traction was applied to the cord and the placenta delivered spontaneously immediately following it was noted to be intact with three-vessel cord. The perineum and vagina were inspected and noted to have a 1st degre perineal laceration repaired with a 3-0 vicryl rapide suture. EBL was 400cc. Patient and infant tolerated delivery well. Presentation: Vertex and STEPHANIE Amniotic Fluid Description: Clear Placental Delivery Description: Spontaneous Placenta Disposition: [facility] Cord Vessel Description: 3 Vessels Cord Entanglement: None Infant A Gender: Female (1 minute): 9 (5 minute): 9 Delayed Cord Clamping: Yes Post Vaginal Delivery Medications Given After Delivery: IV Pitocin and IM Hemabate Episiotomy Description: None Laceration: 1st degree Complication Complications: None Multi Select Codes Urinary/Genital Urinary/Genital CPT Codes: 05576 Vaginal Delivery+ Care([facility])
--- NOTE | 2022-01-04 17:54 | PCM.DC ---
Discharge Instructions Diet Discharge Diet: No restrictions Activity Discharge Activity: Return to Normal Activity, May Not Drive (while taking narcotic pain medications.) and May Shower May resume sexual activity in: 4-6 weeks Dressing / Incision Call your doctor if your incision/area has: Continuous Slow Oozing, Sudden Increased Bleeding, Increased Pain/ Swelling, Increased Redness and Foul Smelling Discharge Follow Up Care Please Follow Up With: Светлана Aparicio DO When: Call [phone] to make an appointment with your doctor in 6 weeks. If you had elevated blood pressure or 4th degree laceration, you will need to be seen in 2 weeks. Test Results: Test results from this visit will be discussed in further detail at your follow-up appointment, if applicable. Discharge Plan Admission Admit Date/Time: 01/04/22 06:58 Primary Reason for Your Visit: vaginal delivery Attending Provider: Светлана Aparicio Primary Care Provider: Care Physician,Abbie Primary Discharge Orders/Prescriptions Prescriptions: New ibuprofen 600 mg tablet 600 mg PO Q6H PRN (Reason: pain) 7 Days Qty: 30 RF: 0 Continued fexofenadine [Letitia Allergy] 60 mg Tablet 60 mg PO DAILY RF: 0 ferrous sulfate [Iron (ferrous sulfate)] 325 mg (65 mg iron) Tablet 325 mg PO DAILY RF: 0 prenat.vits,abdulaziz,[id number] Tablet 1 tab PO DAILY RF: 0 Discontinued promethazine 12.5 mg tablet 12.5 mg PO Q6H PRN (Reason: nausea and vomiting) Qty: 60 RF: 2 Referrals / Follow Up: Care Physician,No Primary [Primary Care Provider] - Disposition Disposition (needs filled in before D/C Order can be placed): Home, Self Care
[2022-01-04] MEDS: 0.9% Saline Lock 10 ML Syringe IV (20:24)
[2022-01-04] MEDS: Acetaminophen 500 MG Tablet 1000 MG PO (22:00)
[2022-01-05 04:00] VITALS: BP 113/57; PULSE 72; RESP 16; TEMP 36.7
[2022-01-05] MEDS: Ibuprofen 600 MG Tablet PO (06:17)
[2022-01-05 08:04] VITALS: BP 119/59; PULSE 85; RESP 16; TEMP 36.1
[2022-01-05 11:16] VITALS: BP 116/49; PULSE 79; RESP 16; TEMP 36.6
[2022-01-05 15:34] VITALS: BP 120/56; PULSE 77; RESP 18; TEMP 36.9
--- NOTE | 2022-01-05 17:01 | PN.OBGYN_ITS ---
Subjective Subjective Patient doing well without complaints. Tolerating PO. Ambulating and voiding without difficulty. Feeding well. Denies chest pain, shortness of breath, calf pain/swelling, fevers, chills, lightheadedness. Objective Data Objective Data Vital Signs: Vital Signs Temp Pulse Resp BP Pulse Ox 98.4 F 77 18 120/56 L 97 01/05/22 15:34 01/05/22 15:34 01/05/22 15:34 01/05/22 15:34 01/04/22 19:45 Oxygen Delivery Method Room Air Weight: 216 lb 11.43 oz Body Mass Index (BMI) 38.4 Intake & Output: Intake and Output for Last 24 Hours 01/03/22 01/04/22 01/05/22 23:59 23:59 23:59 Intake Total 4194.00 / 4194.00 Output Total 1825 / 1825 400 / 400 Balance 2369.00 / 2369.00 -400 / -400 Lab / Micro Data Result Diagrams: 01/04/22 07:45 01/04/22 07:45 Micro: Microbiology 01/04/22 08:13 Nasal Secretion SARS-CoV-2 Antigen (Rapid) - Final ROS Constitutional Constitutional: Denies chills, fatigue, fever(s), poor appetite or weakness Eyes Eyes: Denies blurry vision, change in vision, seeing flashes or spots in vision ENT HEENT: Denies dizziness, headache(s), loss taste/smell or sore throat Cardiovascular Cardiovascular: Denies chest pain, dizziness, dyspnea, irregular heart rhythm, palpitations or rapid heart rate Respiratory/Chest Respiratory/Chest: Denies chest tightness, cough, dyspnea or breast pain Gastrointestinal Gastrointestinal: Denies abdominal pain, constipation or vomiting Genitourinary Genitourinary: Denies dysuria or flank pain Musculoskeletal Musculoskeletal: Denies difficulty walking, joint pain, limited range of motion or numbness Neurologic Neurologic: Denies abnormal movements, abnormal speech, dizziness, numbness, seizure-like activity or syncope Psychiatric Psychiatric: Denies anxiety, behavioral changes, change in appetite, confusion, depression or suicidal thoughts Physical Exam Const alert, oriented x3 and no apparent distress General Appearance: cooperative and comfortable Resp normal respiratory effort Cardio regular rate GI normal to inspection, nondistended, normoactive bowel sounds GI Narrative: uterus is firm below umbilicus Palpation: soft Bimanual Exam - Adnexa, Other: Negative for cul-de-sac fullness Back/Spine no CVA tenderness and thoraco-lumbar ROM normal Extremity normal to inspection, no clubbing, cyanosis or edema, no calf tenderness and no pedal edema Psych mental status grossly normal, thought process normal, cooperative, affect nor mal, speech normal, activity/motor behavior normal, denies homicidal ideation and denies suicidal ideation Assessment & Plan (1) Vaginal delivery: COMMENT: 01/04/22 - baby girl IOL for mild pre-e -JV (2) : QUALIFIERS: Weeks of gestation: 36 weeks Qualified Code(s): Z3A.36 - 36 weeks gestation of COMMENT: genetics- low risk female and carrier neg. , aug afp screen. nl anatomy, growth US nl, david nl, GBS negative (3) Vaginal bleeding during : COMMENT: stable but intermittent. nl anatomy scan, nl placental location, repeat US and MFM consult agree with increased testing. Repeat US nl, recommend weekly visits and nsts while persistent. Abruption workup negative. twice weekly at 32 (4) Visual changes: COMMENT: see a/p of RODRIGES. nl optho cs, neg CT of head, and nl serial labs. s/p serial bps with STO. (5) Headache in : QUALIFIERS: Trimester: third trimester Qualified Code(s): O26.893 - Other specified related conditions, third trimester; R51.9 - Headache, unspecified COMMENT: tylenol, offered phenerga/reglan. nl bps and nl pree labs. plan twice weekly testing as OP with twice weekly NSTs, twice weekly labs, home bp monitoring. optum consult. discussed with MFM. (6) Supervision of high risk in third trimester: COMMENT: PRR SHANIQUA: 01/25/22 PC: Radhames Miguel Spouse: Pankaj (7) Mild pre-eclampsia: COMMENT: per Dr. West (8) Lab test positive for detection of COVID-19 virus: COMMENT: 81mg asa daily and 32 & 36 wk growth US (9) H/O iron deficiency anemia: COMMENT: IV iron infusions now. PLAN: s/p PPD # 1 1. routine post delivery care 2. breast feeding- support given 3. rh positive 4. rubella immune 5. vitals stable. no signs of htn. may dc to home tonight if cramping is improved an bleeding stable
== END 2022-01-05 18:45 | disposition home or self-care (01) | DRG 560 ==
PROVIDERS: Admitting Provider Obstetrics & Gynecology; Referring Provider Obstetrics & Gynecology; Visit Provider Obstetrics & Gynecology
DX: O14.04 Mild to moderate pre-eclampsia, complicating childbirth (principal); Z37.0 Single live birth; D50.9 Iron deficiency anemia, unspecified; O99.02 Anemia complicating childbirth; Z3A.37 37 weeks gestation of pregnancy; Z86.16 Personal history of COVID-19; O70.0 First degree perineal laceration during delivery
CPT/HCPCS: 36415; 59025; 59050; 82565; 82570; 84156; 84450; 84460; 84550; 85025; 85027; 86850; 86900; 86901; 87811; 99218; J7120; A4216; G0378; J2405

== ENCOUNTER → 2022-02-16 | Outpatient (CLI) | payer MEDICAID, SELFPAY ==
[2022-02-23 17:19] LABS: HPV Reflexed? NOT INDICATED
== END | disposition home or self-care (01) ==
LOC: LABSPEC 17:08
PROVIDERS: Referring Provider Obstetrics & Gynecology; Visit Provider Obstetrics & Gynecology
DX: Z12.4 Encounter for screening for malignant neoplasm of cervix (principal)
CPT/HCPCS: 88175; G0145

== ENCOUNTER 2024-04-20 08:48 | Emergency (ER) | payer MEDICAID, SELFPAY ==
[2024-04-20 08:48] VITALS: BP 117/70; PULSE 71; RESP 16; TEMP 36.1; O2SAT 100; BMI 28.3
--- NOTE | 2024-04-20 09:17 | EDS_ITS ---
HPI History of Present Illness Chief Complaint: Abd Pain Narrative Narrative: Patient is a 23-year-old female with no known significant past medical history who presented to the emergency department with chief complaint of right lower quadrant abdominal pain. She states that her abdominal pain started around 3:00 in the morning. She states 530 this morning she took ibuprofen which seemed to help her pain but feels like is wearing off at this point time. Patient denies any other abdominal surgery. Patient states that she is sexually active any possibility although she feels like to be too early for her to tell. Patient rates her pain a 6 out of 10 here in the emergency department. [facility] Medical History Vaginal delivery Headache Mild pre-eclampsia Lab test positive for detection of COVID-19 virus H/O iron deficiency anemia Home Medications ?Medication ?Instructions ?Recorded ?Last Taken ?Type fexofenadine 60 mg tablet (Letitia 60 mg PO DAILY PRN allergies 05/30/23 Unknown History Allergy) Allergy/AdvReac Type Severity Reaction Status Date / Time tree and shrub pollen Allergy Mild Other Verified 04/20/24 09:32 sertraline (From Zoloft) AdvReac Mild Nausea Verified 04/20/24 09:32 Family History Mother Hypertension Father Cancer throat- smoker Grandfather Diabetes Myocardial infarction Grandmother Diabetes Aunt Diabetes Social History household members: family number of children: 2 Smoking Status: Never smoker alcohol intake: never substance use type: does not use caffeine: Yes what type of physical activity do you participate in: none seatbelt use: always do you feel safe at home: Yes additional social history: Seperated Patient babysits ROS ROS ED ROS Narrative Constitutional: Denies any fevers, chills, headaches, lightheadedness, dizziness Eyes: Denies change in vision double vision blurry vision Cardiovascular: Denies chest pain Respiratory: Denies cough wheezing shortness of breath Abdomen: Complains of abdominal pain as noted above as well as nausea denies vomiting or diarrhea : Denies any painful urination, hematuria, polyuria Neurological: Denies numbness, weakness, tingling Skin: Denies rashes or lesions EXAM Physical Exam Narrative Exam Narrative: General: Patient lying in bed rest comfortably did not appear to be in acute distress Head: Atraumatic, normocephalic Eyes: PERRL bilaterally, EOMI bilaterally, no conjunctival injection noted Neck: Soft, supple, trachea midline Cardiovascular: Regular rate and rhythm no murmurs gallops rubs noted Respiratory: Clear to auscultation bilaterally no rales rhonchi or wheeze noted Abdomen: Soft, nondistended, patient has tenderness palpation right lower quadrant no rebound or guarding on exam Musculoskeletal: No tenderness palpation midline thoracal lumbar spine, no CVA tenderness on exam Extremities: +5/5 strength noted in the bilateral upper and lower extremities, no pedal edema on exam Neurological: Patient following commands and that she is at [facility] year is 2023 Skin: Warm, dry, intact, no rashes or lesions noted Const Vital Signs: 04/20/24 08:48 04/20/24 10:48 Temperature 96.9 F L Temperature Source Temporal Pulse Rate 71 62 Respiratory Rate 16 16 Blood Pressure 117/70 119/64 Blood Pressure Mean 85 82 Pulse Ox 100 100 Oxygen Delivery Method Room Air Room Air MDM MDM MDM Narrative Medical decision making narrative: Patient is a 23-year-old female who presented to the emergency department chief complaint of abdominal pain. Patient will have a workup performed here on the differential diagnosis includes but not limited to appendicitis, UTI, . Once workup is obtained and reviewed she will be reevaluated. Patient CBC reviewed and showed no evidence of leukocytosis white blood count no rmal at 7.1, hemoglobin was 9.6, platelet count noted be normal at 321. Patient's sodium normal 143, potassium normal 4.1, creatinine normal at 0.66. Patient's AST and ALT were 8 and 16 respectively with a normal alk phosphatase of 63. Patient's urinalysis showed 100 leukocyte esterase negative nitrates 10- 25 white blood cells seen however did appear to be contaminated sample with 5-10 squamous epithelial cells and 1+ bacteria she does not have any urinary symptoms therefore this will just be sent for culture and she was instructed to follow-up with her primary care physician on this. Patient CT abdomen pelvis with IV contrast showed findings suggestive of a right ovarian cyst thickened endometrium. Patient states that she is due for her menstrual cycle in approximately 2 weeks. test was negative. Patient's right hemicolon showed a large amount of fecal material seen. Patient was encouraged to continue supportive care and use ibuprofen Tylenol [id number] for pain control. She was encouraged to follow-up with her primary care physician as well as her [employer] in the outpatient setting. She was encouraged to return for worsening symptoms or other concerns. Patient was sent MiraLAX to her pharmacy. She is agreeable to plan she would like to go home all question concerns answered she was discharged home in stable condition Lab Data Labs: Laboratory Results - last 24 hr 04/20/24 04/20/24 09:10 09:35 WBC 7.1 RBC 4.67 Hgb 9.6 L Hct 33.9 L MCV 72.6 L MCH 20.6 L MCHC 28.3 L RDW Std Deviation 43.3 RDW Coeff of Ed 16.9 H Plt Count 321 MPV 8.8 Immature Gran % (Auto) 0.100 Neut % (Auto) 57.4 Lymph % (Auto) 28.3 Brooke % (Auto) 7.3 Eos % (Auto) 5.8 H Baso % (Auto) 1.1 H Absolute Neuts (auto) 4.1 Absolute Lymphs (auto) 2.01 Nucleated RBC % 0 Sodium 143 Potassium 4.1 Chloride 111 H Carbon Dioxide 26.0 Anion Gap 6 BUN 11 Creatinine 0.66 Estim Creat Clear Calc 125.47 Est GFR (MDRD) Af Amer 141 Est GFR (MDRD) Non-Af 116 BUN/Creatinine Ratio 16.6 Glucose 94 Calcium 8.4 L Total Bilirubin 0.20 AST 8 L ALT 16 Alkaline Phosphatase 63 Total Protein 6.6 Albumin 3.3 Globulin 3.3 Albumin/Globulin Ratio 1.0 Lipase 15 Urine Color Yellow Urine Clarity Sl. Cloudy Urine pH 6.0 Ur Specific [place] 1.015 Urine Protein 15 H Urine Glucose (UA) Normal Urine Ketones Negative Urine Occult Blood Negative Urine Nitrite Negative Urine Bilirubin Negative Urine Urobilinogen Normal Ur Leukocyte Esterase 100 H Urine RBC 0 SEEN Urine WBC 10-25 SEEN Ur Squamous Epith Cells 5-10 SEEN Urine Bacteria 1+ Urine Mucus 1+ Urine Test Negative Radiography Diagnostic Testing: Clinical Impression(s) from Imaging Studies Abdomen/Pelvis CT 04/20/24 10:15 IMPRESSION: Findings suggestive of a right ovarian cyst. Thickened endometrium. Correlation with a pelvic sonogram recommended. Electronically Signed: Julian Henson MD at 11:03 EDT , Discharge Plan Triage Chief Complaint: Abd Pain ED Provider: Garfield Bowens Dx/Rx/DC Orders Prescriptions: No Action fexofenadine [Letitia Allergy] 60 mg tablet 60 mg PO DAILY PRN (Reason: allergies) Primary Care Provider: Care Physician,No Primary Referrals: Care Physician,No Primary [Primary Care Provider] - Print Language: Malay
[2024-04-20 09:21] LABS: Absolute Lymphocyte Count 2.01 X10^3/uL (0.83-4.51); Absolute Neutrophil Count 4.1 X10^3/uL (2.0-7.7); Basophil# 0.08 X10^3/uL; Basophil% 1.1 % (0-1); Eosinophil# 0.41 X10^3/uL; Eosinophils% 5.8 % (0-5); Hematocrit 33.9 % (37-47); Hemoglobin 9.6 g/dL (12.0-15.0); Lymphocyte # 2.01 X10^3/ul (0.83-4.51); Lymphocyte % 28.3 % (19-41); Mean Corp Hgb Conc 28.3 g/dL (32-36); Mean Corpuscular Hgb 20.6 pg (27.0-32.0); Mean Corpuscular Volume 72.6 fL (81-99); Mean Platelet Vol. 8.8 fl (6.2-12.0); Monocyte# 0.52 X10^3/uL; Monocyte% 7.3 % (0-10); NRBC Flagged by Analyzer 0 % (0-5); Neutrophil # 4.06 X10^3/uL (2.7-7.7); Neutrophil % 57.4 % (47-70); Platelet Count 321 K/mm3 (150-450); RBC Distribution Width CV 16.9 % (11.6-14.6); RBC Distribution Width SD 43.3 fl (35.1-43.9); Red Blood Count 4.67 M/mm3 (4.2-5.4); White Blood Count 7.1 K/mm3 (4.4-11.0)
[2024-04-20] MEDS: Ondansetron 4 MG/2 ML Vial IV (09:28)
[2024-04-20] MEDS: 0.9% Normal Saline (1000mL) 1,000 ML 999 ML IV (09:28)
[2024-04-20] MEDS: Morphine 4 MG/ML Syringe IV (09:29)
[2024-04-20 09:36] LABS: AST(SGOT) 8 U/L (15-37); Alanine Aminotransfer ALT/SGPT 16 U/L (13-56); Albumin, Serum 3.3 g/dL (3.2-5.0); Alkaline Phosphatase 63 U/L (45-117); Anion Gap 6 (5-15); BUN 11 mg/dL (7-18); BUN/Creat Ratio 16.6 RATIO (10-20); Calcium,Total 8.4 mg/dL (8.5-10.1); Chloride 111 mmol/L (98-107); Creatinine, Serum 0.66 mg/dL (0.55-1.02); EST Glomerular Filtration Rate 116 mL/min (>60); Est Glom Filt Rate - Afr Amer 141 mL/min (>60); Estimated Creatinine Clearance 125.47 ml/min; Globulin 3.3 g/dL (2.2-4.2); Glucose 94 mg/dL (74-106); Lipase 15 U/L (13-75); Potassium 4.1 mmol/L (3.5-5.1); Protein, Total 6.6 g/dL (6.4-8.2); Sodium Level 143 mmol/L (136-145)
[2024-04-20 09:40] LABS: Red Blood Cells-Urine 0 SEEN /hpf (0-5)
[2024-04-20 09:46] LABS: Color, Urine Yellow (Yellow); Glucose, Dipstick Normal (Normal); Ketone-Dipstick Negative (Negative); Leukocyte Esterase-Dipstick 100 /ul (Negative); Nitrite-Dipstick Negative (Negative); Occult Blood-Urine Negative /ul (Negative); Protein-Dipstick 15 mg/dl (Negative); Specific Gravity, Urine 1.015 (1.002-1.030); Urine Bilirubin Dipstick Negative (Negative); Urine Clarity Sl. Cloudy (Clear); Urine Urobilinogen Normal (Normal)
[2024-04-20 09:52] LABS: Mucous, Urine 1+ /hpf (<or=2+); Squamous Epithelial Cells - UA 5-10 SEEN /hpf (5-10)
[2024-04-20 09:53] LABS: Bacteria 1+ /hpf (None Seen); White Blood Cells 10-25 SEEN /hpf (0-5)
[2024-04-20 09:55] LABS: Internal QC Validated? YES +Cl - CLEAR BKGD; Pregnancy, Urine Negative Negative; Record Kit Lot#,Urine Preg HCG0000772476
--- NOTE | 2024-04-20 10:15 | CT_ITS ---
STUDY: CT ABDOMEN AND PELVIS WITH CONTRAST REASON FOR EXAM: Female, 23 years old. RLQ abd pain RADIATION DOSAGE (If Supplied By Facility): CTDIvol = ( 9.27 ) mGy, DLP = ( 657.62 ) mGycm TECHNIQUE: Transaxial images were obtained from the dome of the diaphragm to the symphysis pubis without oral contrast. IV 100mL Isovue-300 was administered. Sagittal and coronal images were reconstructed. Individualized dose optimization techniques were used for this CT. COMPARISON: None. FINDINGS: Minimal degree of dependent bibasilar atelectasis. The visualized portions of the heart are within normal limits. Normal liver. Normal gallbladder and extrahepatic biliary system. Normal spleen. Normal pancreas. Normal bilateral adrenal glands. Normal right kidney. Normal left kidney. Normal visualized stomach. Normal small intestine. Large amount of fecal material is seen in the right hemicolon. The appendix is visualized and appears normal. Small lymph nodes are seen in the mesenteric fat in the right lower quadrant suggestive of mesenteric adenitis. Normal abdominal aorta. Normal inferior vena cava. Normal retroperitoneum. Normal urinary bladder. There is evidence of a 2.2 cm x 2 cm cystic nodule in the right adnexa. Correlation with ultrasound of the pelvis recommended. The endometrium measures 2 cm in transverse dimension. Normal abdominal wall. Normal osseous structures. CT/Abdomen/Pelvis W IV Cont ONLY IMPRESSION: Findings suggestive of a right ovarian cyst. Thickened endometrium. Correlation with a pelvic sonogram recommended. Electronically Signed: Julian Henson MD at 11:03 EDT ,
[2024-04-20 10:48] VITALS: BP 119/64; PULSE 62; RESP 16; O2SAT 100
[2024-04-20 11:47] VITALS: BP 115/58; PULSE 84; RESP 19; TEMP 36.1; O2SAT 100
== END 2024-04-20 11:47 | disposition home or self-care (01) ==
PROVIDERS: Emergency Provider Emergency Medicine; Visit Provider Emergency Medicine
DX: R10.31 Right lower quadrant pain (principal); N83.201 Unspecified ovarian cyst, right side
CPT/HCPCS: 74177; 80053; 81001; 81025; 83690; 85025; 87086; 87088; 96361; 96374; 96375; 99283; J7030; Q9967; A4216; J2405

== ENCOUNTER → 2024-05-08 | Outpatient (CLI) | payer MEDICAID, SELFPAY ==
--- NOTE | 2024-05-08 15:24 | US_ITS ---
HISTORY: pelvic pain/cyst. TECHNIQUE: Transabdominal pelvic ultrasound was performed with flores scale and color Doppler evaluation. 70 images. COMPARISON: CT 04/20/2024. FINDINGS: UTERUS: 7.7 x 3.6 x 4.7 cm. Anteverted. ENDOMETRIAL THICKNESS: 3 mm. RIGHT OVARY: 1.7 x 1.9 x 3.3 cm with several follicles. Volume of 6 cc No adnexal masses. LEFT OVARY: 1.7 x 3.1 x 3.4 cm with several follicles. Volume of 9 cc. No adnexal masses. FREE FLUID: None. URINARY BLADDER: Unremarkable at 166 cc. US/Pelvic (Non ) IMPRESSION: Unremarkable pelvic ultrasound. Electronically Signed: Halle Fisher MD at 11:56 EDT ,
== END | disposition home or self-care (01) ==
LOC: US 15:23
PROVIDERS: Referring Provider Nurse Practitioner Women's Health; Visit Provider Nurse Practitioner Women's Health
DX: N83.209 Unspecified ovarian cyst, unspecified side (principal); R10.2 Pelvic and perineal pain
CPT/HCPCS: 76856